=== PATIENT | female | born 1990 | race Caucasian/White ===

== ENCOUNTER 2020-03-06 16:03 | Emergency (ER) | payer OTHER, SELFPAY ==
[2020-03-06 16:42] VITALS: BP 130/73; PULSE 83; RESP 18; TEMP 36.8; O2SAT 100; BMI 31.6
--- NOTE | 2020-03-06 16:57 | HMH.EDUTC ---
[facility] [place] Disposition Clinical Impression: Encounter for laboratory testing for COVID-19 virus Disposition: Home, Self-Care Condition on Discharge: Good Instructions: Preventing the Spread of Coronavirus Discharge Instructions Additional Instructions: Call back later this evening around 8pm to see if your test results are back and the result Self quarantine while awaiting your result Return if needed straight to ER if any life threatening symptoms Referrals: Cinthya Cali PA [Primary Care Provider] - As needed Time of Disposition: 17:00 Medical Decision Making - Bbo Inquiry Pt receiving controlled substance: No Obb was queried for this patient: No Vital Signs: 03/06/20 16:42 Temperature 98.3 F Temperature Source Oral Pulse Rate [Right Brachial] 83 Respiratory Rate 18 Blood Pressure [Right Arm] 130/73 Blood Pressure Mean [Right Arm] 92 Blood Pressure Source [Right Arm] Automatic Cuff Blood Pressure Position [Right Arm] Sitting 02 Sat by Pulse Oximetry 100 Oxygen Delivery Method Room Air Orders (Tests/Meds): ORDERS Category Date Time Status Covid-19 Nasal PCR ([facility]) Routine Lab 03/06/20 16:[address] [facility] [place] HPI - General Stated complaint: COVID Testing Time Seen by Provider: 03/06/20 16:57 Mode of Arrival: Ambulatory Source of Information: Patient Limitations: No Limitations Description of Symptoms (Recalled from Triage Doc. by RN): PATIENT REQUESTING COVID TEST. 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 I have reviewed the patient's past medical history: Yes - Social History Alcohol Intake: never Occupational Status: other ROS Obtained: Yes All systems reviewed & no additional complaints, Yes Systems reviewed as appropriate & no additional complaints - Constitutional Constitutional: Reports system reviewed and no additional complaints, except as docu, Denies body ache, Denies chills, Denies fever(s), Denies headache(s) - ENT Ears, Nose, Mouth, and Throat: Reports system reviewed and no additional complaints, except as docu, Denies nasal congestion, Denies nasal discharge, Denies sinus pain, Denies sinus pressure, Denies sore throat - Cardiovascular Cardiovascular: Reports system reviewed and no additional complaints, except as docu - Respiratory Respiratory: No chest congestion, No cough, No dyspnea - Gastrointestinal Gastrointestingal: Reports: system reviewed and no additional complaints, except as docu. Denies: diarrhea, nausea, vomiting Physical Exam - General General appearance: alert, in no apparent distress - ENT ENT exam: Present: normal exam, normal oropharynx, mucous membranes moist, TM's normal bilaterally, normal external ear exam - Respiratory Respiratory exam: Present: normal lung sounds bilaterally. Absent: respiratory distress - Cardiovascular Cardiovascular exam: Present: regular rate, normal rhythm. Absent: JVD - Abdominal Exam Abdominal exam: Present: soft, normal bowel sounds.
[2020-03-06 17:17] VITALS: BP 130/73; PULSE 83; RESP 18; TEMP 36.8; O2SAT 100
== END 2020-03-06 17:24 | disposition home or self-care (01) ==
PROVIDERS: Emergency Provider Nurse Practitioner; PCP Physician Assistant
DX: Z20.828 Contact with and (suspected) exposure to other viral communicable diseases (principal)
CPT/HCPCS: 99201; U0003

== ENCOUNTER 2020-03-17 13:46 | Emergency (ER) | payer OTHER, SELFPAY ==
[2020-03-17 13:53] VITALS: BP 123/73; PULSE 80; RESP 18; TEMP 36.7; O2SAT 100; BMI 31.6
--- NOTE | 2020-03-17 14:15 | HMH.EDUTC ---
[facility] [place] Disposition Clinical Impression: Exposure to COVID-19 virus Disposition: Home, Self-Care Condition on Discharge: Good Instructions: Preventing the Spread of Coronavirus Discharge Instructions Additional Instructions: Drink plenty of fluids. Take tylenol or ibuprofen for pain or fever. Follow up with your regular doctor. GO TO THE ER FOR ANY WORSENING SYMPTOMS FOLLOW THE DIRECTIONS ON THE COVID-19 HAND OUT THAT WE GAVE YOU REGARDING SELF-ISOLATION UNTIL YOU KNOW YOUR COVID-19 RESULTS Referrals: PCP,No [Non-Staff] - Time of Disposition: 14:21 Medical Decision Making - Medical Records Medical records reviewed: No: I reviewed the patient's medical records. - Bob Inquiry Pt receiving controlled substance: No Vital Signs: 03/17/20 13:53 03/17/20 14:26 Temperature 98.1 F 98.1 F Temperature Source Oral Oral Pulse Rate 80 Pulse Rate [Radial] 80 Respiratory Rate 18 18 Blood Pressure 123/73 Blood Pressure [Right Arm] 123/73 Blood Pressure Mean [Right Arm] 89 Blood Pressure Source Automatic Cuff Blood Pressure Source [Right Arm] Automatic Cuff Blood Pressure Position Sitting Blood Pressure Position [Right Arm] Sitting 02 Sat by Pulse Oximetry 100 Oxygen Delivery Method Room Air Room Air [facility] [place] HPI - General Stated complaint: Covid test Time Seen by Provider: 03/17/20 14:15 Mode of Arrival: Ambulatory Source of Information: Patient Limitations: No Limitations Description of Symptoms (Recalled from Triage Doc. 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 She states that 3 days ago she worked and then she was notified that one of the children in her class had covid. - Related Data Allergies Allergy/AdvReac Type Severity Reaction Status Date / Time No Known Allergies Allergy Verified 03/06/20 16:45 - Worker's Comp Is this a Worker's Comp case?: No [facility] History - Hepatitis A Screen Drug use history?: No High risk sexual behaviors?: No History of sexually transmitted infection?: No Currently employed?: No Childcare worker?: No Do you have indoor plumbing?: Yes Do you have electricity?: Yes Attestation statement:: This patient has been screened for Hepatitis A risk factors. I have reviewed the patient's past medical history: Yes - Social History Alcohol Intake: never Occupational Status: employed Housing: house ROS Obtained: Yes All systems reviewed & no additional complaints - Constitutional Constitutional: Denies chills, Denies fever(s) - ENT Ears, Nose, Mouth, and Throat: Reports as per HPI - Cardiovascular Cardiovascular: Denies chest pain - Respiratory Respiratory: No chest congestion, Yes cough Physical Exam - General General appearance: alert, in no apparent distress - Head Head exam: atraumatic, normocephalic, normal inspection - Eye Eye exam: Present: normal appearance, PERRL, EOMI - ENT ENT exam: Present: normal exam, normal oropharynx, mucous membranes moist, TM's normal bilaterally, normal external ear exam - Neck Neck exam: Present: normal inspection, full ROM, trachea midline. Absent: meningismus, lymphadenopathy - Chest Chest inspection: Present: normal inspection, symmetric chest wall rise. Absent: tenderness - Respiratory Respiratory exam: Present: normal lung sounds bilaterally. Absent: respiratory distress - Cardiovascular Cardiovascular exam: Present: regular rate, normal rhythm. Absent: JVD - Abdominal Exam Abdominal exam: Present: soft, normal bowel sounds. Absent: distention, tenderness, guarding - Extremities Exam Extremities exam: Present: normal inspection, full ROM, normal capillary refill. Absent: calf tendernes
[2020-03-17 14:26] VITALS: BP 123/73; PULSE 80; RESP 18; TEMP 36.7; O2SAT 100
== END 2020-03-17 14:28 | disposition home or self-care (01) ==
PROVIDERS: Emergency Provider Nurse Practitioner Family; PCP Physician Assistant
DX: Z20.828 Contact with and (suspected) exposure to other viral communicable diseases (principal)
CPT/HCPCS: 99201; U0003

== ENCOUNTER 2020-04-27 18:28 | Emergency (ER) | payer OTHER, SELFPAY ==
[2020-04-27 18:59] VITALS: BP 139/79; PULSE 93; RESP 18; TEMP 36.8; O2SAT 98; BMI 32.4
--- NOTE | 2020-04-27 19:02 | HMH.EDUTC ---
[facility] [place] Disposition Clinical Impression: Encounter for laboratory testing for COVID-19 virus Disposition: Home, Self-Care Condition on Discharge: Good Instructions: Allergic Rhinitis, DI for Allergic Rhinitis, Preventing the Spread of Coronavirus Discharge Instructions Additional Instructions: *Monitor Temp, Over the counter Motrin or Tylenol as directed/as needed Tylenol every 4 hours and Motrin every 6 hours (as long as your family doctor has told you that you can take it) for fever or pain. and straight to ER if unable to lower temp less than 101.0 after medication given *Warm salt water gargles may help to soothe the throat *Throat Lozenges *Warm fluids like tea with honey may help to soothe the throat *Sleep elevated *Humidifier/Vaporizer *Flonase 2 sprays in each nostril daily but be aware that it may take 2-3 days before you notice improvement Your throat swab was sent for culture. Those results are typically sent to your primary care. Be sure to follow up in 2-3 days with your family doctor/primary care physician if no improvement so they can review those result and treat if necessary. If you don?t have a primary care doctor, I recommend you get one but in the mean time, you will have to return to a walk in clinic Follow up IMMEDIATELY for new or worsening symptoms or no Noticeable improvement over the next 48-72 hours. 911 for difficulty breathing or swallowing You was tested for today for COVID19 your test result should be back in the next 24-48 hours, you may call to the [facility] later today or tomorrow to see if your test results are back and the result [phone] [facility] hours are 9am-9pm You was given a handout with instructions for Self Quarantine and Self isolation for while you wait on test results and what to do if they are positive If you are positive the Health Dept will be contacting you also Prescriptions: Benzonatate [Tessalon Perle 100mg Cap*] 100 mg PO TID PRN #15 cap PRN Reason: Cough Transmission Status: Pending to [facility] Referrals: Cinthya Cali PA [Primary Care Provider] - As needed Forms: Work/School Release Time of Disposition: 19:21 Medical Decision Making - Bob Inquiry Pt receiving controlled substance: No Bob was queried for this patient: No Vital Signs: 04/27/20 18:59 Temperature 98.2 F Temperature Source Oral Pulse Rate [Radial] 93 H Respiratory Rate 18 Blood Pressure [Right Arm] 139/79 Blood Pressure Mean [Right Arm] 99 Blood Pressure Source [Right Arm] Automatic Cuff Blood Pressure Position [Right Arm] Sitting 02 Sat by Pulse Oximetry 98 Oxygen Delivery Method Room Air - Lab Data Lab results reviewed: Yes: I reviewed the patient's lab results. Orders (Tests/Meds): ORDERS Category Date Time Status Covid-19 Nasal PCR ([facility]) Routine Lab 04/27/20 18:40 Received [facility] [place] HPI - General Stated complaint: wants covid test Time Seen by Provider: 04/27/20 19:02 Mode of Arrival: Ambulatory Source of Information: Patient Limitations: No Limitations Description of Symptoms (Recalled from Triage Doc. 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
[2020-04-27 19:44] VITALS: BP 139/79; PULSE 93; RESP 18; TEMP 36.8; O2SAT 98
[2020-04-27 20:18] LABS: UTC Strep Screen (Rapid) Negative (Negative)
--- NOTE | 2020-04-28 04:42 | PC.NURSE ---
Positive COVID results reported.
== END 2020-04-27 19:44 | disposition home or self-care (01) ==
PROVIDERS: Emergency Provider Nurse Practitioner; PCP Physician Assistant
DX: U07.1 COVID-19 (principal)
CPT/HCPCS: 87880; 99202; U0003

== ENCOUNTER 2020-09-17 10:55 | Emergency (ER) | payer OTHER, SELFPAY ==
[2020-09-17 10:55] VITALS: BP 132/93; PULSE 90; RESP 16; TEMP 36.7; O2SAT 99; BMI 32.4
--- NOTE | 2020-09-17 11:40 | XR_ITS ---
PROCEDURE: XR CHEST 2V CLINICAL HISTORY: congestion Asthma, smoker COMPARISON: No exams were available for comparison FINDINGS: The cardiomediastinal silhouette and pulmonary vascularity are within normal limits. The lungs are clear without infiltrates, suspicious nodules, or pleural effusions. No acute bony abnormalities. IMPRESSION: No acute findings. Dictated by: Troy Ríos MD 09/17/2020 12:04 Troy Ríos MD in OV 09/17/2020 12:04
--- NOTE | 2020-09-17 12:07 | HMH.EDUTC ---
[facility] [place] [facility] [place] Clinical Impression: Asthma exacerbation Qualifiers: Asthma severity: unspecified severity Asthma persistence: unspecified Qualified Code(s): J45.901 - Unspecified asthma with (acute) exacerbation Disposition: Home, Self-Care Condition on Discharge: Good Instructions: DI for Asthma -- Adult Additional Instructions: Drink plenty of fluids. Take tylenol or ibuprofen for pain or fever. Take the medications as directed. Follow up with your regular doctor. GO TO THE ER FOR ANY WORSENING SYMPTOMS Don't start the oral steroids until tomorrow, since you had the shot here today. Prescriptions: diphenhydrAMINE HCL [Diphenhydramine HCl] 25 mg PO Q6HP PRN #30 cap PRN Reason: Itching Transmission Status: Received by [email or web address] Amoxicillin/Potassium Clav [Augmentin 875-125 Tablet] 1 tab PO Q12H 10 Days #20 tab Transmission Status: Received by [email or web address] methylPREDNISolone [Medrol] 4 mg PO DIRECTED 6 Days #21 tab.ds.pk Transmission Status: Received by [email or web address] Benzonatate [Tessalon Perle 100mg Cap] 100 mg PO TIDP PRN #30 cap PRN Reason: Cough Transmission Status: Received by [email or web address] Referrals: Cinthya Cali PA [Primary Care Provider] - Forms: Work/School Release Time of Disposition: 12:50 Medical Decision Making - Medical Records Medical records reviewed: No: I reviewed the patient's medical records. - Bob Inquiry Pt receiving controlled substance: No Vital Signs: 09/17/20 10:55 09/17/20 13:27 Temperature 98.1 F 98.9 F Temperature Source Oral Oral Pulse Rate 75 Pulse Rate [Right] 90 Respiratory Rate 16 16 Blood Pressure 136/61 Blood Pressure [Right Arm] 132/93 H Blood Pressure Mean [Right Arm] 106 02 Sat by Pulse Oximetry 99 Oxygen Delivery Method Room Air Orders (Tests/Meds): ED MEDICATIONS Discontinued Medications Generic Name Dose Route Start Last Admin Trade Name Freq PRN Reason Stop Dose Admin Ceftriaxone Sodium 1 gm 09/17/20 12:05 09/17/20 12:20 Ceftriaxone 1gm Vial IM 09/17/20 12:06 1 gm ONCE ONE Administration Protocol Lidocaine HCl 0 ml 09/17/20 12:05 09/17/20 12:22 Lidocaine 1% 5ml Pf Vial IM 09/17/20 12:06 5 ml ONCE ONE Administration Methylprednisolone Sodium Succinate 125 mg 09/17/20 12:05 09/17/20 12:23 Methylprednisolone Sod Succ 125mg Vial IM 09/17/20 12:06 125 mg ONCE ONE Administration [facility] [place]PI - General Stated complaint: Cough,SOB Time Seen by Provider: 09/17/20 10:55 Mode of Arrival: Ambulatory Limitations: No Limitations Description of Symptoms (Recalled from Triage Doc. by RN): pt c/o head, chest congestion, cough that started a few day ago. pt states thinks it sinus HEENT Symptoms (Recalled from RN notes): Yes Resp Symptoms (Recalled from RN notes): Yes Skin Symptoms (Recalled from RN notes): No MS Symptoms (Recalled from RN notes): No Functional Status (Recalled from RN notes): wnl - History of Present Illness Provider Complaint: she states that for the past 2 days she has had a cough and chest congestion. She has a history of asthma. She has been having to use her rescue inhaler (albuterol) more than normal. She denies any chest pain and fever. She does have a history of getting pneumonia easily. - Related Data Previous Rx's Medication Instructions Recorded Benzonatate [Tessalon Perle 100mg 100 mg PO TID PRN #15 cap 04/27/20 Cap*] Amoxicillin/Potassium Clav 1 tab PO Q12H 10 Days #20 tab 09/17/20 [Augmentin 875-125 Tablet] Benzonatate [Tessalon Perle 100mg 100 mg PO TIDP PRN #30 cap 09/17/20 Cap] diphenhydrAMINE HCL 25 mg PO Q6HP PRN #30 cap 09/17/20 [Diphenhydramine HCl] methylPREDNISolone [Medrol] 4 mg PO DIRECTED 6 Days #21 09/17/20 tab.ds.pk Allergies Allergy/AdvReac Type Severity Reaction Status Date / Time ceftriaxone Allergy Verified 09/17/20 15:27 - Worker's Comp Is this a Worker
[2020-09-17 13:27] VITALS: BP 136/61; PULSE 75; RESP 16; TEMP 37.2; O2SAT 99
== END 2020-09-17 13:28 | disposition home or self-care (01) ==
PROVIDERS: Emergency Provider Nurse Practitioner Family; PCP Physician Assistant
DX: J45.901 Unspecified asthma with (acute) exacerbation (principal); F17.210 Nicotine dependence, cigarettes, uncomplicated
CPT/HCPCS: 71046; 96372; 99202; G0463

== ENCOUNTER 2024-03-30 16:05 | Emergency (ER) | payer OTHER, SELFPAY ==
[2024-03-30 16:15] VITALS: BP 132/84; PULSE 92; RESP 20; TEMP 36.7; O2SAT 98; BMI 31.6
--- NOTE | 2024-03-30 16:27 | ED_ITS ---
Discharge Plan Disposition Patient Disposition: Home, Self-Care Condition: Good Prescriptions Prescriptions: New nitrofurantoin monohyd/m-cryst 100 mg capsule 100 mg PO BID 5 Days Qty: 10 0RF Rx Instructions: must administer with a meal/food No Action clonazepam 0.5 mg tablet 0.5 mg PO BID Patient Comments: TAKE ONE TABLET BY MOUTH TWICE DAILY omeprazole 40 mg capsule,delayed release(DR/EC) 40 mg PO DAILY montelukast 10 mg tablet 10 mg PO DAILY sertraline 50 mg tablet 50 mg PO DAILY Referrals Follow up/Referrals: Cinthya Cali PA [Primary Care Provider] - See instructions Activity Restrictions/Add. Instructions Additional Instructions/Restrictions: I recommend following up with your PCP for further evaluation of your gallbladder including formal gallbladder ultrasound with possible HIDA scan, recheck with your PCP because of the findings on the CAT scan of possibly dilated ureter but no kidney stone was seen. I have sent a prescription to your pharmacy please take till gone unless you have problems taking it. Return to the ER for any worsening signs or symptoms as needed Clinical Impressions Clinical Impression: Right upper quadrant abdominal pain Instructions Patient Instructions: DI for Acute Abdominal Pain Print Language Print Language: Mongolian Discharge ED Provider: Carlin Cifuentes [facility] [place] <Peri Rush APRN - Last Filed: 03/30/24 20:40> General Chief complaint: Abdominal Pain Stated complaint: Pain right side,nausea,pain in right shoulder Mode of Arrival: Ambulatory Source of Information: Patient Limitations: No Limitations Time Seen by Provider: 03/30/24 16:32 Description of Symptoms (Recalled from Triage Doc. by RN): PATIENT C/O RIGHT UPPER QUADRANT PAIN, PAIN BETWEEN HER SHOULDER BLADES, BLOATING, CONSTIPATION, DIARRHEA, AND NAUSEA THAT STARTED 2 DAYS AGO HEENT Symptoms (Recalled from RN notes): No Resp Symptoms (Recalled from RN notes): No Skin Symptoms (Recalled from RN notes): No MS Symptoms (Recalled from RN notes): No Functional Status (Recalled from RN notes): WNL History of Present Illness Provider Complaint: Patient states that she started a couple days ago with pain in her right upper quad that goes into her back between her shoulder blade area that has continued to feel worse States that she has been feeling bloated and normally she has constipation but she has had some diarrhea and nausea. States today she was still hurting and feeling uncomfortable so she came in Related Data Home Medications ?Medication ?Instructions ?Recorded ?Confirmed clonazepam 0.5 mg tablet 0.5 mg PO BID 03/30/24 03/30/24 montelukast 10 mg tablet 10 mg PO DAILY 03/30/24 03/30/24 omeprazole 40 mg capsule,delayed 40 mg PO DAILY 03/30/24 03/30/24 release sertraline 50 mg tablet 50 mg PO DAILY 03/30/24 03/30/24 Previous Rx's ?Medication ?Instructions ?Recorded nitrofurantoin 100 mg PO BID 5 days #10 caps 03/30/24 monohydrate/macrocrystals 100 mg capsule Allergies Allergy/AdvReac Type Severity Reaction Status Date / Time ceftriaxone Allergy Verified 09/17/20 15:27 Worker's Comp Is this a Worker's Comp case?: No PFSH <Peri Rush APRN - Last Filed: 03/30/24 20:40> [facility] Disclaimer: The information contained in this section may have been updated after the patient was seen, as this information can be updated by other users. Medical History (Updated 03/30/24 @ 18:52 by JUANCHO Sanford) Migraine Asthma Depression Anxiety Kidney stone Urinary tract infection History of gastroesophageal reflux (GERD) Social History Smoking Status: Never smoker alcohol intake: never current occupational status: employed Travel in the last 8 weeks: None housing: house <Peri Rush APRN - Last Filed: 03/30/24 20:40> ROS Obtained: Yes All systems reviewed & no additional complaints except as documented and Yes Systems reviewed as appropriate & no additional complaints except as documented Constitutional Constitutional: Reports system reviewed and no additional complaints, except as documented, Reports as per HPI and Denies fever(s) ENT Ears, Nose, Mouth, and Throat: Reports system reviewed and no additional complaints, except as documented and Reports as per HPI Cardiovascular Cardiovascular: Reports system reviewed and no additional complaints, except as documented and Reports as per HPI Respiratory Respiratory: Reports system reviewed and no additional complaints, except as documented and Reports as per HPI Gastrointestinal Gastrointestingal: Reports system reviewed and no additional complaints, except as documented, as per HPI, abdominal pain (pain in right upper quad going into shoulder blade area), bloating, constipation (at times), diarrhea and nausea Physical Exam <Peri Rush APRN - Last Filed: 03/30/24 20:40> General General appearance: alert and in no apparent distress Respiratory Respiratory exam: Present normal lung sounds bilaterally; Absent respiratory distress or wheezes Cardiovascular Cardiovascular exam: Present regular rate, normal rhythm and normal heart sounds Abdominal Exam Abdominal exam: Present soft and tenderness (reports tenderness with palpation in right upper quad) Neurological Exam Neurological exam: Present alert, oriented X3 and normal gait Medical Decision Making <Peri Rush APRN - Last Filed: 03/30/24 20:40> Medical Records Screening: Per USPSTF and CDC recommendations, given the prevalence of disease in our region, it is our hospital?s policy to screen for HIV and viral Hepatitis for all patients aged 18 and over and those with ongoing risk factors. Bob Inquiry Pt receiving controlled substance: No Bob was queried for this patient: No Vital Signs: 03/30/24 16:15 Temperature 98.1 F Temperature Source Oral Pulse Rate [Left Brachial] 92 H Respiratory Rate 20 Blood Pressure [Left Arm] 132/84 Blood Pressure Mean [Left Arm] 100 Blood Pressure Source [Left Arm] Automatic Cuff Blood Pressure Position [Left Arm] Sitting 02 Sat by Pulse Oximetry 98 Oxygen Delivery Method Room Air Lab Data 03/30/24 17:05 03/30/24 17:05 Medical Decision Narrative: Patient states that around 2 days ago she started with pain in her right upper quad or her abdomen that feels like it goes into her back between her shoulder blade area, state that she has been feeling bloated and having nausea States that she typically has constipation but instead she has been having diarrhea and more uncomfortable after eating States today it was bothering her and she went to the clinic at school and they recommended she come in and get checked discussed with patient and due to complaint of abdominal pain recommended transfer to the ED for further work up and evaluation and she agreed Called ED and patient was moved to the ED <JUANCHO Sanford - Last Filed: 03/30/24 20:14> Medical Records Medical records reviewed: Yes I reviewed the patient's medical records. Vital Signs: 03/30/24 16:15 Temperature 98.1 F Temperature Source Oral Pulse Rate [Left Brachial] 92 H Respiratory Rate 20 Blood Pressure [Left Arm] 132/84 Blood Pressure Mean [Left Arm] 100 Blood Pressure Source [Left Arm] Automatic Cuff Blood Pressure Position [Left Arm] Sitting 02 Sat by Pulse Oximetry 98 Oxygen Delivery Method Room Air Lab Data Lab results reviewed: Yes I reviewed the patient's lab results.
--- NOTE | 2024-03-30 16:37 | HMH.EDGENADL ---
Discharge Plan Disposition Patient Disposition: Home, Self-Care Condition: Good Prescriptions Prescriptions: New nitrofurantoin monohyd/m-cryst 100 mg capsule 100 mg PO BID 5 Days Qty: 10 0RF Rx Instructions: must administer with a meal/food No Action clonazepam 0.5 mg tablet 0.5 mg PO BID Patient Comments: TAKE ONE TABLET BY MOUTH TWICE DAILY omeprazole 40 mg capsule,delayed release(DR/EC) 40 mg PO DAILY montelukast 10 mg tablet 10 mg PO DAILY sertraline 50 mg tablet 50 mg PO DAILY Referrals Follow up/Referrals: Cinthya Cali PA [Primary Care Provider] - See instructions Activity Restrictions/Add. Instructions Additional Instructions/Restrictions: I recommend following up with your PCP for further evaluation of your gallbladder including formal gallbladder ultrasound with possible HIDA scan, recheck with your PCP because of the findings on the CAT scan of possibly dilated ureter but no kidney stone was seen. I have sent a prescription to your pharmacy please take till gone unless you have problems taking it. Return to the ER for any worsening signs or symptoms as needed Clinical Impressions Clinical Impression: Right upper quadrant abdominal pain Instructions Patient Instructions: DI for Acute Abdominal Pain Print Language Print Language: Hungarian Discharge ED Provider: Carlin Cifuentes General Adult HPI <JUANCHO Sanford - Last Filed: 03/30/24 20:14> General Chief complaint: Abdominal Pain Stated complaint: Pain right side,nausea,pain in right shoulder Time Seen by Provider: 03/30/24 16:32 Mode of Arrival: Ambulatory Source of Information: Patient Limitations: No Limitations Description of Symptoms (Recalled from ER Triage Doc. by RN): PATIENT C/O RIGHT UPPER QUADRANT PAIN, PAIN BETWEEN HER SHOULDER BLADES, BLOATING, CONSTIPATION, DIARRHEA, AND NAUSEA THAT STARTED 2 DAYS AGO History of Present Illness HPI narrative: Patient presents for evaluation of right upper quadrant abdominal pain. Patient gives 3-day history of intermittent waxing and waning right upper quadrant abdominal pain. She states that fatty food makes it worse and she gets nauseated. She states that she feels it between her shoulder blades but denies chest pain shortness of breath fever chills hemoptysis hematochezia melena vomiting diarrhea. Patient has had a bowel movement and flatus today. She reports that she has also had intermittent constipation and feeling of bloating in her abdomen but no dysuria. Related Data Home Medications ?Medication ?Instructions ?Recorded ?Confirmed clonazepam 0.5 mg tablet 0.5 mg PO BID 03/30/24 03/30/24 montelukast 10 mg tablet 10 mg PO DAILY 03/30/24 03/30/24 omeprazole 40 mg capsule,delayed 40 mg PO DAILY 03/30/24 03/30/24 release sertraline 50 mg tablet 50 mg PO DAILY 03/30/24 03/30/24 Previous Rx's ?Medication ?Instructions ?Recorded nitrofurantoin 100 mg PO BID 5 days #10 caps 03/30/24 monohydrate/macrocrystals 100 mg capsule Allergies Allergy/AdvReac Type Severity Reaction Status Date / Time ceftriaxone Allergy Verified 09/17/20 15:27 ON LICENSE OF [facility] <JUANCHO Sanford - Last Filed: 03/30/24 20:14> ON LICENSE OF [facility] Disclaimer: The information contained in this section may have been updated after the patient was seen, as this information can be updated by other users. Medical History (Updated 03/30/24 @ 18:52 by JUANCHO Sanford) Migraine Asthma Depression Anxiety Kidney stone Urinary tract infection History of gastroesophageal reflux (GERD) Social History Smoking Status: Never smoker alcohol intake: never current occupational status: employed Travel in the last 8 weeks: None housing: house <JUANCHO Sanford - Last Filed: 03/30/24 20:14> ROS Obtained: Yes Systems reviewed as appropriate & no additional complaints except as documented Physical Exam <JUANCHO Sanford - Last Filed: 03/30/24 20:14> General General appearance: alert and in no apparent distress Respiratory Respiratory exam: Present normal lung sounds bilaterally Cardiovascular Cardiovascular exam: Present regular rate Neurological Exam Neurological exam: Present alert and oriented X3 Medical Decision Making <JUANCHO Sanford - Last Filed: 03/30/24 20:14> Medical Records Medical records reviewed: Yes I reviewed the patient's medical records. Screening: Per USPSTF and CDC recommendations, given the prevalence of disease in our region, it is our hospital?s policy to screen for HIV and viral Hepatitis for all patients aged 18 and over and those with ongoing risk factors. Bob Inquiry Pt receiving controlled substance: No Vital Signs: 03/30/24 16:15 03/30/24 16:48 03/30/24 18:30 Temperature 98.1 F 98.0 F Temperature Source Oral Oral Pulse Rate 65 Pulse Rate [Left Brachial] 92 H 77 Respiratory Rate 20 20 Blood Pressure 135/85 Blood Pressure [Left Arm] 132/84 121/82 Blood Pressure Mean [Left Arm] 100 95 Blood Pressure Source [Left Arm] Automatic Cuff Blood Pressure Position [Left Arm] Sitting 02 Sat by Pulse Oximetry 98 100 100 Oxygen Delivery Method Room Air Room Air 03/30/24 19:12 Temperature 98.2 F Temperature Source Oral Pulse Rate 67 Pulse Rate [Left Brachial] Respiratory Rate 18 Blood Pressure 146/106 H Blood Pressure [Left Arm] Blood Pressure Mean [Left Arm] Blood Pressure Source [Left Arm] Blood Pressure Position [Left Arm] 02 Sat by Pulse Oximetry Oxygen Delivery Method Room Air Lab Data Lab results reviewed: Yes I reviewed the patient's lab results. Lab Results 03/30/24 16:40: Urine Color Yellow, Urine Appearance Clear, Urine pH 6.0, Ur Specific Vancleve 1.025, Urine Protein Negative, Urine Glucose (UA) Negative, Urine Ketones Negative, Urine Blood Trace-i, Urine Nitrate Negative, Urine Bilirubin Negative, Urine Urobilinogen 0.2, Ur Leukocyte Esterase Negative, Urine RBC 3-5, Urine WBC 5-10, Ur Squamous Epith Cells 10-20, Urine Bacteria 3+, Urine HCG, Qual Negative 03/30/24 17:05: WBC 7.2, RBC 5.02, Hgb 13.3, Hct 41.9, MCV 83.4, MCH 26.4 L, MCHC 31.7 L, RDW 14.3, Plt Count 374, MPV 7.4, Neut % (Auto) 56.2, Lymph % (Auto) 36.3, Brule % (Auto) 3.9, Eos % (Auto) 2.0, Baso % (Auto) 1.7, Neut # (Auto) 4.0, Lymph # (Auto) 2.6, Brule # (Auto) 0.3, Eos # (Auto) 0.1, Baso # (Auto) 0.1, PT 10.0 L, INR 0.88 L, Sodium 137, Potassium 3.4 L, Chloride 102, Carbon Dioxide 25, Anion Gap 13.4, BUN 10, Creatinine 0.80, Estimated Creat Clear 138, Estimated GFR 82, Est GFR ( Amer) 99, Glucose 97, Calcium 10.0, Total Bilirubin 0.6, AST 26, ALT 23, Alkaline Phosphatase 65, Total Protein 7.9, Albumin 4.5, Globulin 3.4 H, Albumin/Globulin Ratio 1.3, Lipase 71 03/30/24 17:05 03/30/24 17:05 Orders (Tests/Meds): ED MEDICATIONS Discontinued Medications Generic Name Dose Route Start Last Admin Trade Name Freq PRN Reason Stop Dose Admin Acetaminophen 1,000 mg 03/30/24 16:53 03/30/24 17:04 Acetaminophen 500mg Tab PO 03/30/24 16:54 1,000 mg ONCE ONE Administration Iopamidol 75 ml 03/30/24 17:45 03/30/24 17:46 Iopamidol-370 (76%);100ml Bottle IV 03/30/24 17:46 75 ml ONCE ONE Administration Ketorolac Tromethamine 15 mg 03/30/24 16:53 03/30/24 17:04 Ketorolac 30mg/Ml Vial IV 03/30/24 16:54 15 mg ONCE ONE Administration Ondansetron HCl 4 mg 03/30/24 16:53 03/30/24 17:05 Ondansetron 4mg/2ml Vial IV 03/30/24 16:54 4 mg ONCE ONE Administration Sodium Chloride 10 ml 03/30/24 17:45 03/30/24 17:46 Sodium Chloride 0.9% 10ml Syr (Rad Only) IV 03/30/24 17:46 10 ml ONCE ONE Administration ORDERS Category Date Time Status CT abdomen pelvis w con Stat Cat Scan 03/30/24 16:53 Completed POCUS Point of Care (ER Only) Stat Exams 03/30/24 16:53 Completed CBC w/Auto Diff [Complete Blood Count Auto Diff] Stat Lab 03/30/24 17:05 Completed CMP [Comprehensive Metabolic Panel] Stat Lab 03/30/24 17:05 Completed INR [Prothrombin Time INR] Stat Lab 03/30/24 17:05 Completed Lipase Stat Lab 03/30/24 17:05 Completed UA [Urinalysis and Microscopic] Stat Lab 03/30/24 16:40 Completed Urine , HCG Qual. Stat Lab 03/30/24 16:40 Completed Urine Culture Stat Micro 03/30/24 16:40 Received Medical Decision Narrative: In summary patient is a 3-year-old female who presents to the emergency department for evaluation of right upper quadrant abdominal pain. Patient is hemodynamically stable upon arrival, afebrile. Physical exam is remarkable for a soft abdomen with mild right upper quadrant tenderness on palpation but negative Langley sign currently with no rebound or guarding or rigidity. Bowel sounds normal active. No epigastric tenderness. Breath sounds are clear and equal bilaterally to the bases.. Differential diagnosis includes constipation gastritis gastroenteritis pancreatitis etc. Initial workup will be conducted with hematologic labs urinalysis CT scan abdomen pelvis. Initial interventions include Tylenol Toradol. Initial workup reviewed by me was that her hematologic labs are nonactionable however I do see an increased stool burden in the right hemicolon but no colonic wall thickening or concerning signs of obstruction, she also might have right hydroureter but no stone is seen no stranding and no other acute abdominal process noted and her urinalysis shows trace blood but nitrite and leukocyte esterase negative on the dipstick and the microscopic exam shows 3-5 red blood cells 5-10 whites 10-20 epithelial cells and 3+ bacteria in her POCUS right upper quadrant ultrasound is normal. Upon repeat evaluation treatment and her symptoms. Given this patient is appropriate for discharge with a prescription for Macrobid and follow-up with her PCP for no improvement or worsening symptoms or return to ER as needed. <Carlin Cifuentes MD - Last Filed: 03/30/24 20:48> Vital Signs: 03/30/24 16:15 03/30/24 16:48 03/30/24 18:30 Temperature 98.1 F 98.0 F Temperature Source Oral Oral Pulse Rate 65 Pulse Rate [Left Brachial] 92 H 77 Respiratory Rate 20 20 Blood Pressure 135/85 Blood Pressure [Left Arm] 132/84 121/82 Blood Pressure Mean [Left Arm] 100 95 Blood Pressure Source [Left Arm] Automatic Cuff Blood Pressure Position [Left Arm] Sitting 02 Sat by Pulse Oximetry 98 100 100 Oxygen Delivery Method Room Air Room Air 03/30/24 19:12 Temperature 98.2 F Temperature Source Oral Pulse Rate 67 Pulse Rate [Left Brachial] Respiratory Rate 18 Blood Pressure 146/106 H Blood Pressure [Left Arm] Blood Pressure Mean [Left Arm] Blood Pressure Source [Left Arm] Blood Pressure Position [Left Arm] 02 Sat by Pulse Oximetry Oxygen Delivery Method Room Air Lab Data Lab Results 03/30/24 16:40: Urine Color Yellow, Urine Appearance Clear, Urine pH 6.0, Ur Specific Vancleve 1.025, Urine Protein Negative, Urine Glucose (UA) Negative, Urine Ketones Negative, Urine Blood Trace-i, Urine Nitrate Negative, Urine Bilirubin Negative, Urine Urobilinogen 0.2, Ur Leukocyte Esterase Negative, Urine RBC 3-5, Urine WBC 5-10, Ur Squamous Epith Cells 10-20, Urine Bacteria 3+, Urine HCG, Qual Negative 03/30/24 17:05: WBC 7.2, RBC 5.02, Hgb 13.3, Hct 41.9, MCV 83.4, MCH 26.4 L, MCHC 31.7 L, RDW 14.3, Plt Count 374, MPV 7.4, Neut % (Auto) 56.2, Lymph % (Auto) 36.3, Brule % (Auto) 3.9, Eos % (Auto) 2.0, Baso % (Auto) 1.7, Neut # (Auto) 4.0, Lymph # (Auto) 2.6, Brule # (Auto) 0.3, Eos # (Auto) 0.1, Baso # (Auto) 0.1, PT 10.0 L, INR 0.88 L, Sodium 137, Potassium 3.4 L, Chloride 102, Carbon Dioxide 25, Anion Gap 13.4, BUN 10, Creatinine 0.80, Estimated Creat Clear 138, Estimated GFR 82, Est GFR ( Amer) 99, Glucose 97, Calcium 10.0, Total Bilirubin 0.6, AST 26, ALT 23, Alkaline Phosphatase 65, Total Protein 7.9, Albumin 4.5, Globulin 3.4 H, Albumin/Globulin Ratio 1.3, Lipase 71 Orders (Tests/Meds): ED MEDICATIONS Discontinued Medications Generic Name Dose Route Start Last Admin Trade Name Yazanq PRN Reason Stop Dose Admin Acetaminophen 1,000 mg 03/30/24 16:53 03/30/24 17:04 Acetaminophen 500mg Tab PO 03/30/24 16:54 1,000 mg ONCE ONE Administration Iopamidol 75 ml 03/30/24 17:45 03/30/24 17:46 Iopamidol-370 (76%);100ml Bottle IV 03/30/24 17:46 75 ml ONCE ONE Administration Ketorolac Tromethamine 15 mg 03/30/24 16:53 03/30/24 17:04 Ketorolac 30mg/Ml Vial IV 03/30/24 16:54 15 mg ONCE ONE Administration Ondansetron HCl 4 mg 03/30/24 16:53 03/30/24 17:05 Ondansetron 4mg/2ml Vial IV 03/30/24 16:54 4 mg ONCE ONE Administration Sodium Chloride 10 ml 03/30/24 17:45 03/30/24 17:46 Sodium Chloride 0.9% 10ml Syr (Rad Only) IV 03/30/24 17:46 10 ml ONCE ONE Administration ORDERS Category Date Time Status CT abdomen pelvis w con Stat Cat Scan 03/30/24 16:53 Completed POCUS Point of Care (ER Only) Stat Exams 03/30/24 16:53 Completed CBC w/Auto Diff [Complete Blood Count Auto Diff] Stat Lab 03/30/24 17:05 Completed CMP [Comprehensive Metabolic Panel] Stat Lab 03/30/24 17:05 Completed INR [Prothrombin Time INR] Stat Lab 03/30/24 17:05 Completed Lipase Stat Lab 03/30/24 17:05 Completed UA [Urinalysis and Microscopic] Stat Lab 03/30/24 16:40 Completed Urine , HCG Qual. Stat Lab 03/30/24 16:40 Completed Urine Culture Stat Micro 03/30/24 16:40 Received Medical Decision Narrative: In summary patient is a 3-year-old female who presents to the emergency department for evaluation of right upper quadrant abdominal pain. Patient is hemodynamically stable upon arrival, afebrile. Physical exam is remarkable for a soft abdomen with mild right upper quadrant tenderness on palpation but negative Langley sign currently with no rebound or guarding or rigidity. Bowel sounds normal active. No epigastric tenderness. Breath sounds are clear and equal bilaterally to the bases.. Differential diagnosis includes constipation gastritis gastroenteritis pancreatitis etc. Initial workup will be conducted with hematologic labs urinalysis CT scan abdomen pelvis. Initial interventions include Tylenol Toradol. Initial workup reviewed by me was that her hematologic labs are nonactionable however I do see an increased stool burden in the right hemicolon but no colonic wall thickening or concerning signs of obstruction, she also might have right hydroureter but no stone is seen no stranding and no other acute abdominal process noted and her urinalysis shows trace blood but nitrite and leukocyte esterase negative on the dipstick and the microscopic exam shows 3-5 red blood cells 5-10 whites 10-20 epithelial cells and 3+ bacteria in her POCUS right upper quadrant ultrasound is normal. Upon repeat evaluation treatment and her symptoms. Given this patient is appropriate for discharge with a prescription for Macrobid and follow-up with her PCP for no improvement or worsening symptoms or return to ER as needed. I was consulted by the ROMAN, and we discussed the complexity of the problems being addressed. I approved the treatment and management plan for this patient's care in the Emergency Department, thus performing a substantive portion of the medical decision making. Carlin Cifuentes MD Procedures <Carlin Cifuentes MD - Last Filed: 03/30/24 20:48> Limited Ultrasound Indication:: Limited RUQ ultrasound Indication: Right upper quadrant pain Identified structures: -Gallbladder -Gallbladder wall -Common bile duct -Liver Findings: Sonographic Langley sign: Absent Gallstones: Absent Sludge: Absent Pericholecystic fluid: Absent Maximal GB wall thickness (mm) (normal is </= 3mm): Normal Common bile duct width (mm) (normal is </= 6mm): Normal Gallbladder width (cm) (normal is < 4cm): Normal Gallbladder length (cm) (normal is < 10cm): Normal Impression: Normal gallbladder Images were saved to permanent archive The study was technically adequate CPT 57680-13 This study was performed by me, and I personally interpreted all images/videos. Based on my clinical judgement, these images were adequate and did not necessitate further imaging. Critical Care <JUANCHO Sanford - Last Filed: 03/30/24 20:14> Critical Care Time Critical Care Time: No
[2024-03-30 16:48] VITALS: BP 121/82; PULSE 77; RESP 20; TEMP 36.7; O2SAT 100; BMI 32.4
--- NOTE | 2024-03-30 16:53 | CT_ITS ---
PROCEDURE INFORMATION: Exam: CT Abdomen And Pelvis With Contrast Exam date and time: 03/30/2024 5:47 PM Age: 33 years old Clinical indication: Abdominal pain; Additional info: Right upper quadrant abdominal pain TECHNIQUE: Imaging protocol: Computed tomography of the abdomen and pelvis with contrast. Radiation optimization: All CT scans at this facility use at least one of these dose optimization techniques: automated exposure control; mA and/or kV adjustment per patient size (includes targeted exams where dose is matched to clinical indication); or iterative reconstruction. Contrast material: ISOVUE; Contrast volume: 75 ml; Contrast route: IV; COMPARISON: CR XR CHEST 2V 09/17/2020 11:43 AM FINDINGS: Liver: Normal. No mass. Gallbladder and biliary ducts: Gallbladder is contracted Pancreas: Normal. No ductal dilation. Spleen: Normal. No splenomegaly. Adrenal glands: Normal. No mass. Kidneys and ureters: Punctate nonobstructing right renal calculus. No ureteral calcifications. . Mild dilatation of the proximal right ureter and right collecting system Stomach and bowel: Unremarkable. No obstruction. No mucosal thickening. Appendix: Normal appendix Intraperitoneal space: Unremarkable. No free air. No significant fluid collection. Vasculature: Unremarkable. No abdominal aortic aneurysm. Lymph nodes: Unremarkable. No enlarged lymph nodes. Urinary bladder: Unremarkable as visualized. Reproductive: Unremarkable as visualized. Bones/joints: Unremarkable. No acute fracture. Soft tissues: Unremarkable. IMPRESSION: Mild dilatation of the proximal right ureter and right collecting system. However no ureteral calculus. The findings could be due to a recently passed stone, a noncalcified stone or clot or soft tissue process in the right ureter, or an infectious/inflammatory process of the right collecting system.
[2024-03-30 16:59] LABS: Microscopic, Urine URINE MICROSCOPIC (MICROSCOPIC)
[2024-03-30 17:03] LABS: Appearance,Urine CLEAR (Clear); Bilirubin,Urine Negative (Negative); Blood, Urine TRACE-I (Negative); Color,Urine YELLOW (Yellow); Glucose,Urine (UA) Negative (Negative); Ketones,Urine Negative (Negative); Leukocyte Esterase,Urine Negative (Negative); Nitrate,Urine Negative (Negative); Protein,Urine Negative (Negative); Specific Gravity, Urine 1.025 (1.005-1.030); Urobilinogen,Urine 0.2 EU/dl (0.2)
[2024-03-30] MEDS: ACETAMINOPHEN 500MG TAB 1000 MG PO (17:04)
[2024-03-30] MEDS: KETOROLAC 30MG/ML VIAL 15 MG IV (17:04)
[2024-03-30] MEDS: ONDANSETRON 4MG/2ML VIAL 4 MG IV (17:05)
--- NOTE | 2024-03-30 17:08 | PC.NURSE ---
labs collected and sent to lab
[2024-03-30 17:14] LABS: Urine Pregnancy, HCG Qual. Negative (Negative)
[2024-03-30 17:19] LABS: Albumin Level 4.5 g/dl (3.5-5.0); Basophils # 0.1 K/mm3 (0-0.2); Basophils % 1.7 % (0.1-2.0); Chloride 102 mmol/L (98-107); Eosinophils # 0.1 K/mm3 (0.0-0.4); Hematocrit 41.9 % (37.0-47.0); Hemoglobin 13.3 g/dL (12.2-16.2); Lymphocytes # 2.6 K/mm3 (0.7-4.5); Lymphocytes % 36.3 % (10-50); Mean Corpuscular HGB Conc 31.7 g/dL (31.8-35.4); Mean Corpuscular Hemoglobin 26.4 pg (27.0-31.2); Mean Corpuscular Volume 83.4 fl (81-99); Mean Platelet Volume 7.4 fl (7.4-10.4); Monocytes # 0.3 K/mm3 (0.1-1.0); Monocytes % 3.9 % (1.7-9.3); Neutrophils % 56.2 % (37.0-80.0); Platelet Count 374 K/mm3 (142-424); Potassium 3.4 mmoL/L (3.5-5.1); Red Blood Count 5.02 M/mm3 (4.20-5.40); Red Cell Distribution Width 14.3 % (11.5-17.5); Sodium 137 mmol/L (136-145); White Blood Count 7.2 K/mm3 (4.8-10.8)
[2024-03-30 17:22] LABS: Alanine Aminotransferase 23 U/L (12-78); Albumin/Globulin Ratio 1.3 (1.1-1.8); Alkaline Phosphatase 65 U/L (38-126); Anion Gap 13.4 mEq/L (5-15); Aspartate Amino Transferase 26 U/L (14-36); Bilirubin,Total 0.6 mg/dl (0.2-1.3); Blood Urea Nitrogen 10 mg/dl (7-17); Carbon Dioxide 25 mmol/L (22.0-30.0); Creatinine Clearance Estimated 138 mL/min (50-200); Estimated Glomerular Filt Rate 82 ml/min (>60); GFR (African American) 99 ML/MIN (>60); Globulin 3.4 g/dL (1.3-3.2); Glucose 97 mg/dl (74-100); Lipase 71 U/L (23-300); Total Protein,Serum 7.9 g/dl (6.3-8.2)
[2024-03-30 17:24] LABS: INR 0.88 (0.9-1.1)
[2024-03-30 17:29] LABS: Bacteria,Urine 3+ /lpf
[2024-03-30] MEDS: IOPAMIDOL-370 (76%);100ML BOTTLE 75 ML IV (17:46)
[2024-03-30] MEDS: SODIUM CHLORIDE 0.9% 10ML SYR (RAD ONLY) 10 ML IV (17:46)
--- NOTE | 2024-03-30 17:48 | PC.NURSE ---
PT RETURNED FROM CT, WARM BLANKET PROVIDED
[2024-03-30 18:30] VITALS: BP 135/85; PULSE 65; O2SAT 100
[2024-03-30 19:12] VITALS: BP 146/106; PULSE 67; RESP 18; TEMP 36.8; O2SAT 100
== END 2024-03-30 19:23 | disposition home or self-care (01) ==
LOC: UTC 16:32 → ER 16:33
PROVIDERS: Physician Assistant; Emergency Provider Emergency Medicine; PCP Physician Assistant
DX: R10.11 Right upper quadrant pain (principal); K59.00 Constipation, unspecified; R19.7 Diarrhea, unspecified; R11.0 Nausea; R14.0 Abdominal distension (gaseous)
CPT/HCPCS: 74177; 80053; 81001; 81025; 83690; 85025; 85610; 87086; 96374; 96375; 99285; J1885; J2405; Q9967

== ENCOUNTER 2024-12-17 13:47 | Emergency (ER) | payer OTHER, SELFPAY ==
--- OUTSIDE RECORDS SUMMARY | 2024-10-19 15:30 | XMS_ITS | Encounter Summary ---
Author Organization [facility] Address [address] [place] [address] Care Team Providers Care Content Creation Manager Name Role Phone Cinthya Cali Primary Care Provider [phone] Reason for Visit * Consultation (Routine) - Denied Specialty Diagnoses / Procedures Referred By Contac t Referred To Contact Surgical Oncology / Hematology and Oncology Diagnoses At high risk for breast cancer 09/24 BOOKED Chetna Chen, [place], [facility] [address] [place] [phone] Phone: tel: fax: Referral ID Status Reason Start Date Expiration Date V isits Requested Visits Authorized [id number] Denied Specialty Services Required 08/18/2024 02/17/2026 1 0 Encounter Details Date Type Department Care Team (Late st Contact Info) Description 10/19/2024 3:30 PM EDT Office Visit [facility] [address] [place] [address] Chely Woodall MD [address] [facility] [address] [place] [address] At high risk for breast cancer Social History Tobacco Use Types Packs/Day Years Used Date Smoking Tobacco: Former Cigarettes 0.5 20.5 S tarted: 06/09/2003 Smokeless Tobacco: Never Tobacco Cessation:Counseling Given: Not Answered Alcohol Use Standard Drinks/Week Comments No 0 (1 standard drink = 0.6 oz pur e alcohol) PHQ-2 Answer Date Recorded Patient Health Questionnaire-2 Score 0 07/09/2024 PHQ-9 Answer Date Recorded Patient Health Questionnaire-9 Score 2 07/09/2024 Comments No Sex and Gender Information Value Date Recorded Sex Assigned at Not on file Legal Sex Female 8:45 PM EDT Gender Identity Not on file Sexual Orientation Not on file documented as of this encounter Last Filed Vital Signs Vital Sign Reading Time Taken Comments Blood Pressure 121/81 10/19/2024 3:42 PM EDT Pulse 85 10/19/2024 3:42 PM EDT Temperature 36.3 C (97.4 F) 10/19/2024 3:42 PM EDT Respiratory Rate 17 10/19/2024 3:42 PM EDT Oxygen Saturation 98% 10/19/2024 3:42 PM EDT Inhaled Oxygen Concentration - - Weight 89.7 kg (197 lb 12 oz) 10/19/2024 3:42 PM EDT Height 167.6 cm (5' 6 ) 10/19/2024 3:42 PM EDT Body Mass Index 31.92 10/19/2024 3:42 PM EDT documented in this encounter Miscellaneous Notes * Progress Notes - Chelsie Cagle MD - 10/19/2024 3:30 PM EDT [facility] New Patient Consultation This is the first [facility] visit for this 34 y.o. female referred by Chetna Chen APRN,* for bilateral prophylactic mastectomy. History of Present Illness Shelley Bar is a 34 y.o. female with a strong family history of malignancy. She has a calculated lifetime risk of breast cancer of 25.4%. Her sister was diagnosed with breast cancer at 35. Her mother was diagnosed with colon cancer at 37 and has also had ovarian cancer and she has a grandfather with a history of colon cancer. Patient has had genetic testing and is negative for any pathogenic mutations. She has been undergoing breast, gynecologic and colon screening at appropriate intervals. Her last breast screening imaging was David of this year. Her next imaging study will be 01/14/2025. Patient has a She denies breast pain, skin or nipple changes, and nipple discharge. She also deniesunintentional weight loss, fatigue, or new back pain, neck pain, or headaches. She has always had inverted nipples. She denies any new health concerns. She is not on any blood thinners. 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 She lives in [place], [place] with her arline. Patient stopped smoking in March of 2024 but started back again two weeks ago. She is smoking less than she did previously but is still smoking 3 cigarettes a day. Her last cigarette was two days ago. Oncology History Health Maintenance Colonoscopy: She has undergone three colonoscopies. Started doing screening colonoscopies in her late 20s because of family history. History of colon polyps but no malignant lesions. 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 HENT: Negative for congestion, rhinorrhea, sinus pressure and sore throat. Eyes: Negative for discharge, redness and itching. Respiratory: Negative for chest tightness and shortness of breath. Cardiovascular: Negative for chest pain and leg swelling. Gastrointestinal: Negative for abdominal distention. Genitourinary: Negative for difficulty urinating and menstrual problem. Skin: Negative for pallor and rash. Neurological: Negative for seizures and facial asymmetry. Hematological: Negative for adenopathy. Past Medical History Medical History[1] Past Surgical History Surgical History[2] Social History Patient reports that she has quit smoking. Her smoking use included cigarettes. She started smokingabout 21 years ago. She has a 10.2 pack-year smoking history. She has never used smokeless tobacco.She reports that she does not drink alcohol and does not use drugs. Support person: Housing: Secure Transportation: Available and easily accessible Family History Family History[3] Obstetric and Gynecologic History ITALIAN LECTURER/Breast Hx: -Menarche: 13 -LMP: 06/2023 -OCP hx: yes, ~ 5 years -G1@: 20 - -Breast feeding (m): yes, 4 months/6 weeks/2 weeks -Infertility treatments: no -Menopause: no -HRT: no -Hyst/Ooph: no -Previous Bx: no No LMP recorded. Current Medications Medications Ordered Prior to Encounter[4] Allergies Allergies[5] PHYSICAL EXAMINATION ECOG Performance Status: 0: Fully active, able to carry on all pre-disease performance without restriction Vital Signs: Visit Vitals OB Status Having periods Smoking Status Former General: The patient is a well-developed individual who appears the stated age, the patient's speech pattern and movements are normal, and affect is appropriate. Head: The head is normocephalic. Neck: The neck is supple, the thyroid is not enlarged, there are no palpable masses, and the trachea is in the midline. Lymphatics: The supraclavicular, submental, cervical, and axillary regions are free of significant lymphadenopathy. Chest: The chest expands symmetrically and the AP diameter appears normal. Heart: The rhythm is regular and the heart is not enlarged. Right Breast: Nipple is inverted, there is no skin dimpling with movement of the pectoralis, there is no nipple retraction, no nipple discharge can be elicited, the parenchyma is mildly nodular, there are no dominant masses, and the axillary tail is normal. Left Breast: Nipple is inverted, there is no skin dimpling with movement of the pectoralis, there is no nipple retraction, no nipple discharge can be elicited, the parenchyma is mildly nodular, thereare no dominant masses, and the axillary tail is normal. Abdomen: The abdomen is soft, flat and non-tender and there are no palpable masses. Back: There is no vertebral column tenderness. Skin: The skin appears normal and there are no suspicious rashes or lesions. Extremities: The extremities are without deformity, cyanosis, and edema. IMAGING: Imaging has been reviewed here by our radiologists; we have personally reviewed these images/imaging studies. MAMMOGRAPHY BREAST SCREENING TOMOSYNTHESIS BILATERAL (07/09/2024) Study Result Narrative & Impression EXAM: Mammography Breast Screening with Tomosynthesis REASON FOR EXAM: Screening Mammogram HISTORY: Patient is 34 y.o. Family medical history includes breast cancer in 4 relatives (maternal cousin, mother's sister, other (comments: maternal great aunt), sister (age of onset: 35)), colon cancer in maternal grandmother, and ovarian cancer in 2 relatives (maternal grandmother, mother). Hormone history includes control (4 years). COMPARISON STUDIES: Compared to: 07/08/2023 Mammography Breast Screening Tomosynthesis Bilateral at [facility] BREAST COMPOSITION: The breasts are heterogeneously dense, which may obscure small masses. FINDINGS: There are no suspicious masses, calcifications, or areas of architectural distortion. IMPRESSION: No mammographic evidence of malignancy. / BI-RADS CATEGORY: Overall: 1 - Negative RECOMMENDATION: Annual Screening Mammogram given high risk. Breast MRI in 6 months. Patient Lifetime Risk Score of Breast Malignancy: 18.7% This risk assessment is calculated using the Cathy Risk Assessment model which may underestimate thelifetime risk of breast malignancy. COMMUNICATION: Computer-aided detection (CAD) and tomosynthesis were utilized by the radiologist in the interpretation of this examination. The results and recommendations will be sent to the patient in a printed lay language version of the imaging report. CARE TEAM Primary Care Physician: Cinthya Cali PA Plastic and Reconstructive Surgery: Chetna Chen APRN Medical Oncology, High risk clinic: Inge López APRN Radiation Oncology: None ASSESSMENT: Shelley Bar is a 34 y.o. female who was referred by Inge López APRN for prophylactic bilateral mastectomy. AJCC (8th Edition) Clinical Stage: Cancer Staging No matching staging information was found for the patient. DISCUSSION: Shelley and I reviewed her situation in detail including her clinical exam findings, imaging and pathology reports. We discussed that the procedure would involve removal of the nipple and possibly asmall area of skin around the nipple to excise all of the breast tissue. From review of plastic surgery plan, she will likely proceed with placement of tissue expanders and drains that day if skin perfusion is appropriate. She will likely require two weeks off of work, but we explained that this isan estimate and may change depending on post op recovery. We explained the risks of surgery including bleeding, infection, and need for additional procedures. We also explained the benefit of surgerybeing the reduction in risk of breast cancer. Patient asked if getting a breast reduction alone would reduce her cancer risk. We explained that this is difficult to quantify in termsof a percent riskreduction with removal of some breast tissue. We explained that if her goal is to reduce risk of breast cancer, then the recommended procedure is bilateral mastectomy. We also discussed the importance of smoking cessation prior to surgery. She has not smoked a cigarette in two days. She understandsthe risks and will continue to abstain in preparation for her surgery. PLAN: - Smoking cessation - Follow up in clinic for surgery consent and teaching The patient expressed understanding of the treatment plan. All questions were answered to her apparent satisfaction. She was encouraged to contact the office if any questions or concerns arise. Dr. Chely Woodall MD Glass Science Engineer of Surgical Oncology [facility] I spent 60 minutes on this encounter, including preparing to see the patient, which involved review/interpretation of diagnostics and reports; obtaining and/or reviewing separately obtained history; performing appropriate physical exam; ordering/scheduling medications, tests or procedures; communicating findings, discussing diagnosis, prognosis, and treatment plans and counseling/educating the patient, family and/or caregiver; documentation in EMR; and care coordination. In addition, I spent another 4 minutes in smoking cessation counseling. Discussing the need to stopsmoking, the data that shows increased wound infections, and the need for improved respiratory function in preparation for surgery. We also discussed and I recommended nicotine alternatives. [1] Past Medical History: Diagnosis Date Anemia Anxiety and depression Asthma Disease of thyroid gland GERD (gastroesophageal reflux disease) Seasonal allergies Vitamin B12 deficiency [2] Past Surgical History: Procedure Laterality Date BELT ABDOMINOPLASTY N/A Abdominoplasty from [facility] SECTION, CLASSIC SECTION, LOW TRANSVERSE N/A Section from [facility] ELBOW SURGERY Right TUBAL LIGATION N/A [3] Family History Problem Relation Name Age of Onset Rectal cancer Mother Michelle Ovarian cancer Mother Michelle Cancer Mother Michelle Chemotherapy Mother Michelle Diabetes Mother Michelle Heart disease Mother Michelle Hypertension Mother Michelle Kidney disease Mother Michelle Mental illness Mother Michelle Radiation Therapy Mother Michelle Hypertension Father Moises Mental illness Father Moises Breast cancer Sister Charline 35 Cancer Sister Charline Chemotherapy Sister Charline Radiation Therapy Sister Charline Breast cancer Mother's Sister Colon cancer Maternal Grandmother Elina Ovarian cancer Maternal Grandmother Elina Pancreatic cancer Maternal Grandmother Elina Cancer Maternal Grandmother Elina Lung cancer Maternal Grandfather Jovan Cancer Maternal Grandfather Jovan Chemotherapy Maternal Grandfather Jovan Skin cancer Paternal Grandmother Shauna Diabetes Paternal Grandmother Shauna Hypertension Paternal Grandmother Shauna Breast cancer Maternal Cousin Breast cancer Other maternal great aunt [4] Current Outpatient Medications on File Prior to Visit Medication Sig Dispense Refill albuterol 108 (90 Base) MCG/ACT inhaler Inhale 2 puffs every 4 (four) hours as needed for wheezing. clonazePAM (KlonoPIN) 0.5 MG tablet Take 1 tablet (0.5 mg) by mouth in the morning. fexofenadine (Luzma) 180 MG tablet Take 1 tablet (180 mg) by mouth in the morning. Fluticasone Propionate (FLONASE ALLERGY RELIEF NA) Inhale 1 spray in the morning. ipratropium-albuterol (Duo-Neb) 0.5-2.5 mg/3 mL nebulizer solution levothyroxine (Synthroid, Levoxyl) 50 MCG tablet Take 1 tablet (50 mcg) by mouth in the morning. montelukast (Singulair) 10 MG tablet Take 1 tablet (10 mg) by mouth nightly. omeprazole (PriLOSEC) [address] capsule Take 1 capsule (40 mg) by mouth in the morning. ondansetron (Zofran) 4 MG tablet sertraline (Zoloft) 50 MG tablet Take 1.5 tablets (75 mg) by mouth in the morning. No current facility-administered medications on file prior to visit. [5] Allergies Allergen Reactions Bromfed Dm [[id number]] Hives Cosigned by Chely Woodall MD at 10/20/2024 6:06 PM EDT Associated attestation - Chely Woodall MD - 10/20/2024 6:06 PM EDT Images from the original note were not included. Attending Attestation: I personally saw and evaluated the patient with the resident. I attest to being involved in providing substantive time in patient care. I discussed the case with them and agree with the findings as documented. The discussion and plan reflect my edits and medical decision making. Dr. Chely Woodall MD Glass Science Engineer of Surgical Oncology [facility] documented in this encounter Plan of Treatment Upcoming Encounters Date Type Department Care Team (Late st Contact Info) Description 12/22/2024 9:30 AM EDT Office Visit [facility] Plastic & Reconstructive Surgery [address] [place] [phone] Chetna Chen, MUFFLER INSTALLER, DNP [address] [phone] 12/29/2024 11:30 AM EDT Office Visit [facility] Breast [facility] [place] [address] [place] [address] Ineg López, MUFFLER INSTALLER [address] [facility] [address] [place] [address] 12/30/2024 1:30 PM EDT Office Visit [facility] Plastic & Reconstructive Surgery [address] [place] [phone] Jose Hyman MD [address] [phone] 01/14/2025 11:00 AM EDT Appointment [facility] Radiology [address] [place] [address] 01/14/2025 2:00 PM EDT Office Visit [facility] [address] [facility] [place] [address] Inge López, MUFFLER INSTALLER [address] [place] [address] documented as of this encounter Visit Diagnoses Diagnosis At high risk for breast cancer documented in this encounter Additional Health Concerns Assessment Noted Time PHQ-9 Depression Total Score: 2 07/09/19 25 2:29 PM EST A fall risk assessment has been complete d for the patient 10/19/2024 3:44 PM EDT A Body Mass Index follow-up plan has been documented for the patient 08/18/2024 3:04 PM EDT documented as of this encounter Care Teams Content Creation Manager Relationship Specialty Start Date End Date Cinthya Cali PA [address] [place], [place] [id number] PCP - General 10/20/20 documented as of this encounter
--- OUTSIDE RECORDS SUMMARY | 2024-12-01 11:30 | XMS_ITS | Encounter Summary ---
Author Organization [facility] Address [address] [id number] Care Team Providers Care Business Account Specialist Name Role Phone Cinthya Cali Primary Care Provider Reason for Visit * Reason Comments Follow-up Encounter Details Date Type Department Care Team ([facility] st Contact Info) Description 12/01/2024 11:30 AM EDT [facility] [address] [facility]nd [place] [address] Inge López, SILK SOAKER [address] [facility] [address] [place] [address] At high risk for breast cancer (Primary Dx); Family history of malignant neoplasm of breast Social History Tobacco Use Types Packs/Day Years [...] Sign Reading Time Taken Comments Blood Pressure 120/81 12/01/2024 11:23 AM EDT Pulse 87 12/01/2024 11:23 AM EDT Temperature 36.7 C (98 F) 12/01/2024 11:23 AM EDT Respiratory Rate 16 12/01/2024 11:23 AM EDT Oxygen Saturation 98% 12/01/2024 11:23 AM EDT Inhaled Oxygen Concentration - - Weight 89.4 kg (197 lb 1.5 oz) 12/01/2024 11:23 AM EDT Height 167.6 cm (5' 6 ) 12/01/2024 11:23 AM EDT Body Mass Index 31.81 12/01/2024 11:23 AM EDT documented in this encounter Miscellaneous Notes * Nicki Cabrera RN - 12/01/2024 11:32 AM EDT Images from the original note were not included. 9 Taking Care of Your Drain Tube ([place]) During surgery, your doctor placed a drain that comes out of your skin. It will remove the fluid that collects near your incision. The drain has a plastic tube and a bulb to hold the fluid. It works by using a small amount of suction. This handout contains important information about caring for your drain tube. When to call your doctor - you need to know when it is important to call your doctor about a problem or concern with your drain. Call your doctor if: ? The tube falls out or the incision opens. ? You see pus around the drain tube or incision. ? You see any of these signs that the skin is infected - it is: * red * swollen * tender to the touch * pulled away from the drain tube ? You have a fever of 101.5 or more. ? The fluid in the drain smells bad. ? The fluid in the drain changes color or turns bloodier. ? You have pain at the incision site that was not there before. ? There is a big change in the amount of fluid that drains. For example, if you need to empty the bulb after 4 hours when you normally empty it every 6 hours. ? The bulb part of the drain fills up with air or will not stay flat. ----- Call your doctor right away if the amount of fluid doubles in a 4-hour period. ----- Write down the phone number you would call here: How to Empty Your Drain Tube You need to empty the fluid that drains into the bulb every 4-8 hours. Don?t let the bulb fill up more than half full. What you need: ? Gauze pads (4x4s) ? Measuring cup ? Drain Amounts Chart (at the end of this handout) Drain the tube: 1. Wash your hands with warm, soapy water. 2. Pull the plug out of the bulb. 3. Empty the fluid from the bulb into the measuring cup. Don?t let the bulb touch the cup. 4. Make sure there is no fluid left in the bulb. 5. Wipe off the outside of the bulb plug with a clean gauze 4x4. Throw the 4x4 away after using. 6. Squeeze all the air out of the bulb. While the air is out of the bulb, put the plugback into theopening. The bulb should stay flat. Some people have trouble keeping the bulb squeezed flat and putting the plug back in at the same time. If this happens, place the bulb on a flat hard surface, like a counter top, and use one hand to keep it flat. Use your other hand to replace the plug. 7. Write down how much fluid is in the measuring cup on the Drain Amounts Chart, along with the date and time. 8. Pour the fluid into the toilet and flush. How to Unclog Your Drain Tube Sometimes clots will clog your drain tube, causing fluid to back up into your body or spill out around the tube site. It is very important to take care of this problem right away. If you see or feel a clot in the tube, make sure you squeeze it out into the bulb. This is called ?milking? or ?stripping? your drain tube. Do this when the drain does not seem to beworking properly. 1. [employer] the tube near the skin and hold it in place with one hand. This will keep the tube from pulling out of the skin. 2. With your other hand, pinch the tube between your thumb and first finger. 3. Starting near the skin where you are holding the tube in place, pull your fingers along the tubetoward the bulb. This helps push the clogged fluid into the bulb. * Stop right away if you start to pull the tube away from your skin! 4. If the fluid still does not drain after you try this, call your doctor. Reminders ? Don?t let the tube get kinked. ? Don?t squeeze the bulb with the plug in place. ? Fill in your Drain Amounts Chart every time you empty the bulb. ? Remember to bring your Drain Amounts Chart to your clinic appointment. Drain Amounts Chart Write down the amount of fluid that you empty from your drain bulb every 4-8 hours. Empty the bulb more often if it fills up. Some people may have 2 drains. If you only have 1 drain, ignore the chart for Drain #2. Drain #1 Drain #2 Date/Time Amount Date/Time Amount Date/Time Amount Date/Time Amount 01/15/09 7 a.m. 20ml * Jojo MitchellMAXIM - Nicki Clifford RN - 12/01/2024 11:32 AM EDT Images from the original note were not included. 916 Bathing Before Surgery Basic instructions ? You need to bathe with Hibiclens (chlorhexidine) before surgery. This will clean your skin and remove germs that live on the skin. This reduces your risk of infection after surgery. ? You?will get?free packets in the clinic, or you can?buy Hibiclens at most drug stores. ? You need to bathe with Hibiclens twice before surgery - once the night before surgery and again the morning of surgery. ? Do not use Hibiclens on your hair or anywhere above the neck. ? You should not shave with a razor or use hair removal creams near the surgery site for 4 days before surgery. Night before surgery If you take a shower or tub bath: 1. Wash with regular soap and water and rinse off. 2. You may wash your hair the night before. Shampoo and rinse as usual. 3. Pour 1 ounce (2 tablespoons) of Hibiclens on a clean washcloth. Wash the area where you will be having your surgery first. Then wash the rest of the body, leaving the groin area until last. 4. Allow the Hibiclens to stay on the skin for 5 minutes, then rinse off completely. 5. Use a clean towel to dry off. 6. Put on clean clothing and be sure to have clean sheets on your bed. Morning of surgery ? Repeat the above steps except do not shampoo your hair. If you develop a skin problem between now and your surgery, please tell your doctor as soon as possible at [phone]. * Jojo MitchellMAXIM - Nicki Clifford RN - 12/01/2024 11:32 AM EDT Images from the original note were not included. 704 After Mastectomy Staying Active You need to keep your whole body active after your surgery. ? Take deep breaths and cough. ? Walk around your room while you are in the hospital. You don?t have to, and shouldn?t stay in bed. ? Use your arm for normal activities like bathing and eating. But do not lift anything over 5 pounds until your doctor says it is ok. ? Do not raise your arm straight over your head on the side where you had your surgery. ? You should wear button-up shirts for easy dressing. o If you wear thread pulling machine attendant shirts, wear a larger size than normal. Put the arm on the surgery side in first. Then pull the shirt over your head without lifting that arm. ? Most people may return to driving once the drains are removed. Arm and Shoulder Exercises ? Stretching exercises are very important after breast surgery. We will show you how to do them. ? Don?t do any exercised until all of the drains are removed. ? After all drains are removed, do the arm-lift exercises 4 times daily. Keep doing this for 4 to 6weeks after surgery. Taking Care of Your Incision ? Most women go home wearing a surgi-bra. It keeps the gauze padding (bandage) in place without tape. ? Your incision is closed on the inside of your skin with stitches that will dissolve in 4-6 weeks. ? There will be either paper strips called steri-strips or skin glue on the incision. The edges of the steri-strips will curl up in about 1 week and will begin falling off in 1-2 weeks. They can be removed at 2 weeks after surgery (usually in your follow up appointment). If skin glue was used this will flake off in 1-2 weeks. ? Do not apply any lotions or creams to your incision for the first 2 weeks after surgery. Gauze Padding (Bandage) ? You may remove the gauze padding (bandage) on your breast 2 days after surgery. It does not need to be replaced. It is ok if your incision is exposed to the air. ? The surgi-bra is for your comfort. You don?t need to wear it if it?s not comfortable. Grooming ? You may shower 2 days after your surgery. ? No soaking in the tub, hot tubs, or swimming while drains are in place and for 2 weeks after drain removal. ? Try not to irritate the incision when shaving or putting on deodorant. Use a mirror for these activities. Drain Care You may go home with at least 1 drain placed into your skin. We will teach you how to care for the drain. Numbness and Tingling The upper part of your arm and around the incision on the breast may feel numb and tingly. And you may feel sharp pain like an electric shock in your arm or breast. This is normal and may get better over time. Swelling ? A small amount of swelling in the breast, chest wall, or armpit is normal during the first month after surgery. ? Use pillows to raise your whole arm above your heart to help with swelling in the arm or armpit. Taking Blood or Injections ? If you had a sentinel lymph node biopsy (where only 1-3 lymph nodes are taken out): You can have blood draws, injections, and IV?s in the arm on the same side. ? If you have had an axillary lymph node dissection (where all lymph nodes are removed and you had a drain after the procedure): Avoid having blood draws, injections, and IV?s in the arm on the side that the lymph node dissection was performed. If there are no other options, tell the provider aboutyour history of having breast cancer and an axillary lymph node dissection. Monthly Breast Self-Exam Do a breast self-exam every month. If you don?t know how to do a breast self- exam, ask your doctor or nurse to teach you how. You can also get a booklet on breast self-exam in the Breast Center. Changes You Will Feel 2 Weeks After Surgery You may feel a pain in your armpit, down your arm, or in your breast. This is a normal part of healing. To help you can: ? Start exercising more 2 weeks after surgery.Take a mild pain medicine like Tylenol or Ibuprofen. ? Take warm showers. Also, your incision(s) may feel thick and lumpy. This is a normal part of healing. To help you can: ? 2 weeks after surgery, you can start rubbing the incision with a lotion that has Vitamin E or pure lanolin in it. You can get these kinds of lotions at a drug store, a discount store, or a health food store. ? You can also rub Vitamin E on the incision. Prick a Vitamin E capsule with a pin. Squeeze out theoil and apply it to the incision. ? Don?t use perfumed lotions. They may contain alcohol which will irritate your skin. ? If you have radiation therapy after surgery, ask your radiation doctor before putting on lotion or oil during your radiation therapy. ? The scar will slowly soften and become auto radiator mechanic in color over several weeks. * H&Naresh - Inge López APRN - 12/01/2024 11:30 AM EDT Images from the original note were not included. Subjective History Of Present Illness Shelley Bar is a 34 y.o. female presenting for surgical consent and teaching. Previous HPI on 10/19/2024: Shelley Bar is a 34 y.o. female [...] intervals. Her last breast screening imaging was Jun of this year. Her next imaging study will be 01/14/2025. Patient has a She denies breast pain, skin or nipple changes, and nipple discharge. She also deniesunintentional weight loss, fatigue, or new back pain, neck pain, or headaches. She has always had inverted nipples. She denies any new health concerns. She is not on any blood thinners. 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 She lives in [place], [place] with her arline. Patient stopped smoking in March of 2024 but started back again two weeks ago. She is smoking less than she did previously but is still smoking 3 cigarettes a day. Her last cigarette was two days ago. Medical/Surgical/Social/Family History I have reviewed and updated the patient history. Travel History Relevant International Travel History: Travel Screening Question Response Have you been in contact with someone who was sick? No / Unsure Do you have any of the following new or worsening symptoms? None of these Have you traveled internationally or domestically in the last month? No Travel History Travel since 10/31/24 No documented travel since 10/31/24 Allergies Bromfed dm [[id number]] Medications Current Medications[1] Objective Review of Systems Constitutional: Negative. Negative for fatigue, fever and unexpected weight change. HENT: Negative. Respiratory: Negative. Negative for shortness of breath. Gastrointestinal: Negative. Negative for diarrhea, nausea and vomiting. Genitourinary: Negative. Musculoskeletal: Negative. Neurological: Negative. Negative for headaches. Psychiatric/Behavioral: Negative. Physical Exam HENT: Head: Normocephalic. Right Ear: External ear normal. Left Ear: External ear normal. Eyes: Extraocular Movements: Extraocular movements intact. Cardiovascular: Rate and Rhythm: Normal rate. Pulmonary: Effort: Pulmonary effort is normal. Chest: Breasts: Right: No tenderness. Left: No tenderness. Comments: Breasts are examined upright and supine position. Bilateral dense and fibrocystic changesnoted. Bilateral nipples are everted and without discharge. No discreet masses or skin changes on either breast. Musculoskeletal: General: Normal range of motion. Cervical back: Normal range of motion. Lymphadenopathy: Upper Body: Right upper body: No supraclavicular, axillary or pectoral adenopathy. Left upper body: No supraclavicular, axillary or pectoral adenopathy. Skin: General: Skin is warm. Neurological: Mental Status: She is alert and oriented to person, place, and time. Psychiatric: Mood and Affect: Mood normal. Behavior: Behavior normal. Thought Content: Thought content normal. Judgment: Judgment normal. Last Recorded Vitals Blood pressure 120/81, pulse 87, temperature 36.7 ??C (98 ??F), temperature source Oral, resp. rate16, height 1.676 m (5' 6 ), weight 89.4 kg (197 lb 1.5 oz), last menstrual period 11/23/2024, SpO2 98%. Assessment & Plan At high risk for breast cancer Family history of malignant neoplasm of breast Patient presents for surgical teaching and consent. -High risk patient: lifetime risk of breast cancer is 25.4% PLAN: BILATERAL PROPHYLACTIC SKIN SPARING MASTECTOMY WITH RECON ON 12/15/[address] Woodall and Dr. Hyman Surgical consent and teaching completed today [1] Current Outpatient Medications Medication Sig Dispense Refill albuterol 108 (90 Base) MCG/ACT inhaler Inhale 2 puffs every 4 hours as needed for wheezing. clonazePAM (KlonoPIN) 0.5 MG tablet Take 1 tablet by mouth daily. fexofenadine (Luzma) 180 MG tablet Take 1 tablet (180 mg) by mouth in the morning. (Patient not taking: Reported on 11/30/2024) Fluticasone Propionate (FLONASE ALLERGY RELIEF NA) Inhale 1 spray in the morning. ipratropium-albuterol (Duo-Neb) 0.5-2.5 mg/3 mL nebulizer solution Take by nebulization as needed. levothyroxine (Synthroid, Levoxyl) 50 MCG tablet Take 1 tablet by mouth daily. montelukast (Singulair) 10 MG tablet Take 1 tablet by mouth nightly. omeprazole (PriLOSEC) [address] capsule Take 1 capsule by mouth daily. ondansetron (Zofran) 4 MG tablet (Patient not taking: Reported on 11/30/2024) sertraline (Zoloft) 50 MG tablet Take 1.5 tablets by mouth daily. No current facility-administered medications for this visit. documented in this encounter Plan of Treatment Upcoming Encounters Date Type Department Care Team (Late st Contact Info) Description 12/22/2024 9:30 AM EDT Office Visit [facility] Plastic & Reconstructive Surgery [address] [place] [address] Chetna Chen APRN, DNP [address] [address] 12/29/2024 11:30 AM EDT [facility] [address] [place] [address] Inge López APRN [address] [facility] [address] [place] [address] 12/30/2024 1:30 PM EDT Office Visit [facility] Plastic [facility] Reconstructive Surgery [address] [place] [address] Jose Hyman MD [address] [address] 01/14/2025 11:[address] [facility] Radiology [address] [place] [address] 01/14/2025 2:00 PM EDT Office Visit [facility] [address] [facility] [place] [address] Inge López, SILK SOAKER [address] [facility] Jess Lopez [facility] [address] [place] [address] documented as of this encounter Visit Diagnoses Diagnosis At high risk for breast cancer- Primary Family history of malignant neoplasm of breast documented in this encounter Additional Health Concerns Assessment Noted Time PHQ-9 Depression Total Score: 2 07/09/19 25 2:29 PM EST A fall risk assessment has been complete d for the patient 10/19/2024 3:44 PM EDT A Body Mass Index follow-up plan has been documented for the patient 08/18/2024 3:04 PM EDT documented as of this encounter Care Teams Business Account Specialist Relationship Specialty Start Date End Date Cinthya Cali PA [address] [place], [place] [id number] PCP - General 10/20/20 documented as of this encounter
--- OUTSIDE RECORDS SUMMARY | 2024-12-09 13:30 | XMS_ITS | Encounter Summary ---
Author Organization Healthcare Address [address] [place] [address] Care Team Providers Care Clin Nurse Spec Name Role Phone Cinthya Cali Primary Care Provider [phone] Encounter Details Date Type Department Care Team (Late st Contact Info) Description 12/09/2024 1:30 PM EDT Office Visit [facility] Plastic & Reconstructive Surgery [address] [place] [phone] Jose Hyman MD [address] [address] At high risk for breast cancer (Primary Dx) Social History Tobacco Use Types Packs/Day Years Used Date Smoking Tobacco: Former Cigarettes 0.5 20.5 S tarted: 06/09/2003 Smokeless Tobacco: Never Alcohol Use Standard Drinks/Week Comments No 0 [...] Sign Reading Time Taken Comments Blood Pressure 126/82 12/09/2024 1:15 PM EDT Pulse 86 12/09/2024 1:15 PM EDT Temperature - - Respiratory Rate - - Oxygen Saturation 98% 12/09/2024 1:15 PM EDT Inhaled Oxygen Concentration - - Weight 87.5 kg (192 lb 14.4 oz) 12/09/2024 1:15 PM EDT Height 165.1 cm (5' 5 ) 12/09/2024 1:15 PM EDT Body Mass Index 32.1 12/09/2024 1:15 PM EDT documented in this encounter Functional Status * Calculated C-SSRS Risk Score (Lifetime/Recent) Answer Date of Assessment Author No Risk Indicated 12/15/2024 8:30 PM EDT Ashish Medina * Question Answer Date of Assessment Author 1. Wish to be (Past 1 Month) No 12/15/2024 8:30 PM EDT Ashish Mcclendon 2. Non-Specific Active Suici crow Thoughts (Past 1 Month) No 12/15/2024 8:30 PM EDT Ashish Germain 6. Suicidal Behavior (Lifetime) No 8:30 PM EDT Ashish Mcclendon documented as of this encounter Miscellaneous Notes * Progress Notes - Darshana Adams MD - 12/09/2024 1:30 PM EDT Images from the original note were not included. [facility] Department of Surgery Division of Plastic and Reconstructive Surgery Plastic Surgery Clinic Note HISTORY OF PRESENT ILLNESS This is an initial consultation with this 34 y.o. year old female seen today at the request of Cinthya Galvan PA and/or No referring provider defined for this encounter. for breast reconstruction. Shelley Bar is a 34 y.o. female with high lifetime risk of breast cancer (25.4%) who presents for breast reconstruction. She is undergoing bilateral prophylactic skin sparing mastectomy with Dr. Woodall, followed by immediate tissue computer information systems professor placement for breast reconstruction on 12/15/24.She is looking forward to surgery but is concerned about the need for multiple surgeries. She is wanting to be significantly smaller than her current size and is wondering if the implants can be placed at the time of her mastectomy. She thinks she is a DDD but wants to be a C-D. She denies previousprocedures to her breasts before. She has no additional concerns. She is a former smoker; she has not smoked since October. She denies history of diabetes, bleeding or clotting disorders, or use of blood thinners. PAST MEDICAL HISTORY Updated and documented in EMR, reviewed during this appointment. Past Medical History[1] PAST SURGICAL HISTORY Updated and documented in EMR, reviewed during this appointment Surgical History[2] CURRENT MEDICATIONS Current Medications[3] ALLERGIES Bromfed dm [[id number]] SOCIAL HISTORY Social History Socioeconomic History Marital status: Spouse name: Not on file Number of children: 3 Years of education: Not on file Highest education level: Not on file Occupational History Not on file Tobacco Use Smoking status: Former Average packs/day: 0.5 packs/day for 20.5 years (10.2 ttl pk-yrs) Types: Cigarettes Start date: 06/09/2003 Smokeless tobacco: Never Vaping Use Vaping status: Never Used Substance and Sexual Activity Alcohol use: No Drug use: Never Sexual activity: Yes Partners: Male control/protection: None Comment: Tubal Other Topics Concern Not on file Social History Narrative Not on file Social Drivers of Health Financial Resource Strain: Not on file Food Insecurity: No Food Insecurity (06/19/2023) Received from [facility] ([place], [place], [place], [place]) Food Insecurity Food run out past 12 months: Not on file Food did not last past 12 months: Not on file Transportation Needs: Not on file Physical Activity: Not on file Stress: Not on file Social Connections: Low Risk (06/19/2023) Received from [facility] ([place], [place], [place], [place]) Family and Community Support Help with Day to Day Activities: Not on file Feeling Lonely or Isolated: Not on file Intimate Partner Violence: Not At Risk (07/30/2023) Received from [facility] Safety and Environment How often does anyone, including family and friends, physically hurt you?: Not on file How often does anyone, including family and friends, insult or talk down to you?: Not on file How often does anyone, including family and friends, threaten you with harm?: Not on file How often does anyone, including family and friends, scream or curse at you?': Not on file Housing Stability: Low Risk (06/19/2023) Received from [facility] ([place], [place], [place], [place]) Housing Stability Living situation today: Not on file Living situation problems: Not on file FAMILY HISTORY Family history is as noted on the history intake form which was reviewed and scanned into [employer]. Negative for bleeding disorders, clotting disorders or anesthesia issues. SYSTEMS REVIEW A complete 14 point review of systems was discussed with the patient at this time and was negative except as noted in the HPI. PHYSICAL EXAMINATION Vital Signs: Vitals: 12/09/24 1315 BP: 126/82 Pulse: 86 SpO2: 98% Weight: 87.5 kg (192 lb 14.4 oz) Height: 1.651 m (5' 5 ) Body mass index is 32.1 kg/m??. General: The patient is in no acute distress. She is well groomed and cooperative with the exam. GEN: Healthy appearing, alert, no acute distress SKIN: Normal color, texture; no rashes or lesions HEENT: Normocephalic, no signs of trauma, anicteric, neck with normal ROM PULM: Normal respiratory effort on room air, no audible stridor or wheeze CV: Regular rate and rhythm, palpable radial pulses PSYCH: Pleasant and normal affect NEURO: Alert and oriented x 3. Cranial nerves grossly intact, speech intact LYMPH: No palpable lymphadenopathy CHEST: bilateral breasts with Grade II ptosis, no evidence of previous scars or wounds. Left Right SN-N 30 30 IMF-N 13 13 Base Width 12 12 RADIOGRAPHS/DATA None IMPRESSION/PLAN Shelley Bar is a 34 y.o. female bilateral prophylactic skin sparing mastectomy with Dr. Woodall, followed by immediate tissue computer information systems professor placement for breast reconstruction on 12/15/24 for high lifetime risk of breast cancer. She has opted for implant-based reconstruction and overall would like to be smaller than her afognak breast size; she cites a C-D. We emphasized that due to the lack of standard bra sizing we cannot guarantee a cup size. We discussed that the option of direct to implant largely depends on the tissue remaining after mastectomy; skin sparing mastectomy may limit the tissue available. Plus, though she wants to be smaller, her desired size is still too large for direct to implant. In addition, to perform direct to implant, we would need to place the implant prepectorally, which may lead to shifting. After discussion, the patient was accepting of subpectoral tissue computer information systems professor placement, as this will ultimately help her reach her goal better. We discussed the use of ADM. We also discussed intercostal nerve repair with allograft if we were able to find transected intercostal nerves, which the patient is agreeable to if this could help with post-operative pain. Risks, benefits, indications, and alternatives were discussed, and the patient would like to proceed with surgery. The patient indicates understanding of these instructions and agrees with the plan. Darshana Adams MD Plastic & Reconstructive Surgery [1] Past Medical History: Diagnosis Date Anemia stable per patient Anxiety and depression Asthma allergy induced, controlled per patient Disease of thyroid gland GERD (gastroesophageal reflux disease) Hypothyroidism Seasonal allergies Vitamin B12 deficiency [2] Past Surgical History: Procedure Laterality Date BELT ABDOMINOPLASTY N/A Abdominoplasty from [facility] SECTION, CLASSIC SECTION, LOW TRANSVERSE N/A Section from [facility] ELBOW SURGERY Right TUBAL LIGATION N/A [3] Current Outpatient Medications: albuterol 108 (90 Base) MCG/ACT inhaler, Inhale 2 puffs every 4 hours as needed for wheezing., Disp: , Rfl: clonazePAM (KlonoPIN) 0.5 MG tablet, Take 1 tablet by mouth daily., Disp: , Rfl: fexofenadine (Luzma) 180 MG tablet, Take 1 tablet (180 mg) by mouth in the morning. (Patient not taking: Reported on 11/30/2024), Disp: , Rfl: Fluticasone Propionate (FLONASE ALLERGY RELIEF NA), Inhale 1 spray in the morning., Disp: , Rfl: ipratropium-albuterol (Duo-Neb) 0.5-2.5 mg/3 mL nebulizer solution, Take by nebulization as needed., Disp: , Rfl: levothyroxine (Synthroid, Levoxyl) 50 MCG tablet, Take 1 tablet by mouth daily., Disp: , Rfl: montelukast (Singulair) 10 MG tablet, Take 1 tablet by mouth nightly., Disp: , Rfl: omeprazole (PriLOSEC) [address] capsule, Take 1 capsule by mouth daily., Disp: , Rfl: ondansetron (Zofran) 4 MG tablet, , Disp: , Rfl: sertraline (Zoloft) 50 MG tablet, Take 1.5 tablets by mouth daily., Disp: , Rfl: Cosigned by Jose Hyman MD at 12/17/2024 8:32 AM EDT Associated attestation - Jose Hyman MD - 12/17/2024 8:32 AM EDT I saw and evaluated the patient with the resident/fellow. I discussed the case with the resident/fellow and agree with the findings and plan as documented. ATTENDING ATTESTATION: IJose MD, saw and evaluated Shelley Bar, female,34 y.o.. The patient was personally examined and her history and relative imaging studies were reviewed and personally interpreted. An independent physical exam was performed and the plan represents my personal medical decision-making. The treatment plan delineated in the note reflects my independently developed treatment plan. Treatment options including surgical versus non-operative interventions were discussed. Risks, benefits and alternatives to proceeding with breast reconstruction with implant based reconstruction and/or autologous reconstruction were discussed with the patient and/or family. Risks include but are not limited to: infection, bleeding, hematoma, wound breakdown, delayed healing, asymmetry, undesiredcosmetic outcome, breast implant associated anaplastic large cell lymphoma, the need for reoperation, total loss of nipple/skin sensation, nipple necrosis, skin contour irregularities, scarring, the potential for blood transfusion, lymphedema, blood clots, postoperative drainage, revision surgery as well as general surgical risks such as blood clot, heart attack, stroke and among others. Preoperative photographs were obtained. The patient had ample opportunity to ask questions and verbalized understanding of the surgical treatment plan. Expected postoperative recovery and restrictions were also discussed. No guarantees or warranties were offered or implied. documented in this encounter Plan of Treatment Upcoming Encounters Date Type Department Care Team (Late st Contact Info) Description 12/22/2024 9:30 AM EDT Office Visit [facility] Plastic & Reconstructive Surgery [address] [place] [address] Chetna Chen APRN, DNP [address] [phone] 12/29/2024 11:30 AM EDT Office Visit [facility] Breast Care [place] [address] [facility] [place] [address] Inge López, STORE COORDINATOR [address] [facility] [address] [place] [phone] 12/30/2024 1:30 PM EDT Office Visit [facility] Plastic & Reconstructive Surgery [address] [place] [address] Jose Hyman MD [address] [phone] 01/14/2025 11:00 AM EDT Appointment [facility] Radiology [address] [place] [address] 01/14/2025 2:00 PM EDT Office Visit [facility] Breast [facility] [address] [phone] Inge López, STORE COORDINATOR [address] [facility] [address] [phone] documented as of this encounter Visit Diagnoses Diagnosis At high risk for breast cancer- Primary documented in this encounter Additional Health Concerns Assessment Noted Time PHQ-9 Depression Total Score: 2 07/09/19 25 2:29 PM EST A fall risk assessment has been complete d for the patient 10/19/2024 3:44 PM EDT A Body Mass Index follow-up plan has been documented for the patient 12/17/2024 8:32 AM EDT documented as of this encounter Care Teams Clin Nurse Spec Relationship Specialty Start Date End Date Cinthya Cali PA [address] [place], [place] [id number] PCP - General 10/20/20 documented as of this encounter
--- OUTSIDE RECORDS SUMMARY | 2024-12-15 05:28 | XMS_ITS | Encounter Summary ---
Author Organization [facility] Address [address] [place] [address] Care Team Providers Care Senior Research Consultant Name Role Phone Cinthya Cali Primary Care Provider [phone] Reason for Referral * Consultation (Routine) - Pending Review Specialty Diagnoses / Procedures Referred By Amanda mohr Referred To Contact Plastic Surgery Diagnoses At high risk for breast cancer Chely Woodall MD [address] [address] Phone: tel: fax: Referral ID Status Reason Start Date Expiration Date Visits Requested Visits Authorized [id number] Pending Review Specialty Services Required 12/16/2024 06/17/2026 1 1 Scheduling Instructions Please follow up with Carmen Coates or Chetna Chen for drain removal, then the following (12/30) with Dr. Hyman Reason for Visit * Auth/Cert (Routine) Specialty Diagnoses / Procedures Referred By Contgurpreet t Referred To Contact Diagnoses At high risk for breast cancer At high risk for breast cancer [Z91.89] Procedures MN MASTECTOMY, SIMPLE, COMPLETE MN EA ADDNL NERVE GRAFT,SINGLE STRAND MN EA ADDNL NERVE GRAFT,MULTPL STRANDS MN TISSUE CRATER AND PACKER PLACEMENT BREAST RECONSTRUCTION Bilateral prophy skin sparing mastectomy/recon INSERTION, IMPLANT OR TISSUE CRATER AND PACKER, BREAST, FOR RECONSTRUCTION Chely Woodall MD [address] [address] Phone: tel: fax: PAV A OPERATING ROOM [address] [place] [address] Phone: tel: Referral ID Status Reason Start Date Expiration Date Visits Re quested Visits Authorized [id number] 1 1 Encounter Details Date Type Department Care Team (Late st Contact Info) Description 12/15/2024 5:28 AM EDT - 12/16/2024 10:29 AM EDT Hospital Encounter [facility] A Inpatient [facility] [address] [place] [address] Chely Woodall MD [address] [facility] Jess Lopez [address] [address] At high risk for breast cancer Discharge Disposition: Home or Self Care Social History Tobacco Use Types Packs/Day Years [...] Sign Reading Time Taken Comments Blood Pressure 99/64 12/16/2024 7:58 AM EDT Pulse 71 12/16/2024 7:58 AM EDT Temperature 37.1 C (98.7 F) 12/16/2024 7:58 AM EDT Respiratory Rate 17 12/16/2024 7:58 AM EDT Oxygen Saturation 98% 12/16/2024 7:58 AM EDT Inhaled Oxygen Concentration - - Weight 93.1 kg (205 lb 4 oz) 12/16/2024 6:28 AM EDT Height 167.6 cm (5' 6 ) 11/30/2024 2:34 PM EDT Body Mass Index 34.16 12/09/2024 1:15 PM EDT documented in this [...] Ashish Mcclendon documented as of this encounter Discharge Instructions * Discharge Instructions* Dang Golden MD - 12/16/2024 5:43 AM EDT [facility] Postoperative Discharge Instructions Follow-up Please follow-up with Inge López on 12/29/24 at 11:30am. Wound care - You may have a surgical bra on when you wake up from surgery. Please wear your surgical bra at all times until your follow up. It can be worn during sleeping for comfort, but should not be worn in the shower. - Over your incision may be steri-strips and/or surgical glue. The Steri-strips or surgical glue will begin to flake off in about one week. You can leave your incision(s) uncovered unless you have drainage. Some blood staining of the dressing can be normal, as is bruising at the site. - You may develop a harmless pocket of fluid (called a seroma ) at the surgical site(s), which maycause a sloshing sound or sensation. This is normal and will eventually disappear. If you developa seroma that is large or uncomfortable, call the office to discuss. - You may have a surgical drain to collect extra fluid from the surgical site. Please refer to additional instructions on how to care for the drain. Showering - You may shower as you normally do starting two days after surgery. The dressings are waterproof. Let soapy water run over the incision and avoid vigorous scrubbing of the surgical site. - No soaking in baths, hot tubs or public areas such as lakes or pools until cleared by your surgeon. Eating and drinking - You may return to eating your regular diet. Because you received anesthesia, we recommend you start with drinking clear liquids and a light meal to avoid getting an upset stomach. - Drink plenty of liquids to avoid constipation. If necessary you may take an egnf-lln-hypjjkn medication (such as MiraLax or Colace). Call the office if you have not had a bowel movement in more than 2 days. Activity - Minimize lifting your arms. No lifting greater than >10lbs or any strenuous activity - Must walk when discharged home - Please do not drive for at least 24 hours as you received anesthesia. If you are taking prescriptions pain medicine that makes you drowsy, please do not attempt to drive. Pain - You may experience tenderness or soreness at the surgical site(s) which is to be expected. You may also experience a sore throat or a headache which is temporary. - If narcotic pain medication was prescribed to you, please take only only as prescribed. Refills cannot be provided after regular business hours. - For pain control, you can take Tylenol and Ibuprofen, unless prohibited by another health care provider. - You may apply ice packs to the surgical site(s) for comfort.s or on weekends. - Please take medications as prescribed. If you have questions or concerns, please call [phone] during regular business hours or [phone] at any other time (after hours, weekends, and/or holidays) and ask for the [facility] TELEGRAPHER AGENT . Please call the above number if you experience: - a fever 100.4 or higher - unrelieved or increasing pain at your surgical site - significant redness of your incision(s) or surrounding area - concerning drainage from the incision(s) documented in this encounter Medications at Time of Discharge cephalexin (Keflex) 500 MG capsuleIndications: At high risk for breast cancer Take 1 capsule by mouth 4 times a day for 7 days. 28 capsule 5 12/24/19 25 clonazePAM (KlonoPIN) 0.5 MG tablet Take 1 tablet by mouth 2 times a day. 0 fexofenadine (Luzma) 180 MG tablet Take 1 tablet by mouth daily. 3 Fluticasone Propionate (FLONASE ALLERGY RELIEF NA) Inhale 1 spray in the morning. 0 ipratropium-albuter ol (Duo-Neb) 0.5-2.5 mg/3 mL nebulizer solution Take by nebulization as needed. 4 levothyroxine (Synthroid, Levoxyl) 50 MCG tablet Take 1 tablet by mouth daily. 4 methocarbamol (Robaxin) 500 MG tablet Take 1 tablet by mouth 3 times a day as needed for muscle spasms for up to 10 doses. 10 tablet 5 montelukast (Singulair) 10 MG tablet Take 1 tablet by mouth nightly. 0 naloxone (Narcan) 4 mg/0.1 mL nasal spray 1. Give 1 spray in nostril for no/slow breathing or cannot wake after opioid use 2. Call 911 3. Repeat in other nostril if symptoms continue 1 each 5 omeprazole (PriLOSEC) [address] capsule Take 1 capsule by mouth daily. 3 ondansetron ODT (Zofran-ODT) 4 MG disintegrating tablet Dissolve 1 tablet on the tongue every 6 hours as needed for nausea or vomiting. 20 tablet 5 oxyCODONE (Roxicodone) 5 MG immediate release tablet Take 1 tablet by mouth every 6 hours as needed for severe pain for up to 10 doses. 10 tablet 5 sertraline (Zoloft) 50 MG tablet Take 1.5 tablets by mouth daily. documented as of this encounter Miscellaneous Notes * Nursing Note - Chiquita Banda RN - 12/16/2024 8:42 AM EDT AVS discharge instructions printed and reviewed: s/s of infection, when to call doctor, how to reach doctor, follow up, discharge diet and activity, home medications to continue, new medications, felicita drain care, showering. Educational attachments given and reviewed: new medications, surgical procedure, FELICITA drain care and log. Meds to beds to deliver. PIV removed. * Jojo OnFHIR - Chiquita Banda RN - 12/16/2024 7:48 AM EDT Images from the original note were not included. 704 After Mastectomy Staying Active You need to keep your whole body active after your surgery. ?? Take deep breaths and cough. ?? Walk around your room while you are in the hospital. You don?t have to, and shouldn?t stay in bed. ?? Use your arm for normal activities like bathing and eating. But do not lift anything over 5 pounds until your doctor says it is ok. ?? Do not raise your arm straight over your head on the side where you had your surgery. ?? You should wear button-up shirts for easy dressing. o If you wear machine tack puller shirts, wear a larger size than normal. Put the arm on the surgery side in first. Then pull the shirt over your head without lifting that arm. ?? Most people may return to driving once the drains are removed. Arm and Shoulder Exercises ?? Stretching exercises are very important after breast surgery. We will show you how to do them. ?? Don?t do any exercised until all of the drains are removed. ?? After all drains are removed, do the arm-lift exercises 4 times daily. Keep doing this for 4 to 6 weeks after surgery. Taking Care of Your Incision ?? Most women go home wearing a surgi-bra. It keeps the gauze padding (bandage) in place without tape. ?? Your incision is closed on the inside of your skin with stitches that will dissolve in 4-6 weeks. ?? There will be either paper strips called steri-strips or skin glue on the incision. The edges ofthe steri-strips will curl up in about 1 week and will begin falling off in 1-2 weeks. They can be removed at 2 weeks after surgery (usually in your follow up appointment). If skin glue was used thiswill flake off in 1-2 weeks. ?? Do not apply any lotions or creams to your incision for the first 2 weeks after surgery. Gauze Padding (Bandage) ?? You may remove the gauze padding (bandage) on your breast 2 days after surgery. It does not needto be replaced. It is ok if your incision is exposed to the air. ?? The surgi-bra is for your comfort. You don?t need to wear it if it?s not comfortable. Grooming ?? You may shower 2 days after your surgery. ?? No soaking in the tub, hot tubs, or swimming while drains are in place and for 2 weeks after drain removal. ?? Try not to irritate the incision when [...] and may get better over time. Swelling ?? A small amount of swelling in the breast, chest wall, or armpit is normal during the first monthafter surgery. ?? Use pillows to raise your whole arm above your heart to help with swelling in the arm or armpit. Taking Blood or Injections ?? If you had a sentinel lymph node biopsy (where only 1-3 lymph nodes are taken out): You can haveblood draws, injections, and IV?s in the arm on the same side. ?? If you have had an axillary lymph node dissection (where all lymph nodes are removed and you hada drain after the procedure): Avoid having blood draws, injections, and IV?s in the arm on the sidethat the lymph node dissection was performed. If there are no other options, tell the provider about your history of having breast cancer and an [...] part of healing. To help you can: ?? Start exercising more 2 weeks after surgery.Take a mild pain medicine like Tylenol or Ibuprofen. ?? Take warm showers. Also, your incision(s) may feel thick and lumpy. This is a normal part of healing. To help you can: ?? 2 weeks after surgery, you can start rubbing the incision with a lotion that has Vitamin E or pure lanolin in it. You can get these kinds of lotions at a drug store, a discount store, or a health food store. ?? You can also rub Vitamin E on the incision. Prick a Vitamin E capsule with a pin. Squeeze out the oil and apply it to the incision. ?? Don?t use perfumed lotions. They may contain alcohol which will irritate your skin. ?? If you have radiation therapy after surgery, ask your radiation doctor before putting on lotion or oil during your radiation therapy. ?? The scar will slowly soften and become snowboard designer in color over several weeks. * Jojo MitchellIR - Chiquita Banda RN - 12/16/2024 7:48 AM EDT Images from the original note [...] more than half full. What you need: ?? Gauze pads (4x4s) ?? Measuring cup ?? Drain Amounts Chart (at the end of [...] does not seem to beworking properly. 1. Bilingual Speech Language Pathologist the tube near the skin and hold [...] you try this, call your doctor. Reminders ?? Don?t let the tube get kinked. ?? Don?t squeeze the bulb with the plug in place. ?? Fill in your Drain Amounts Chart every time you empty the bulb. ?? Remember to bring your Drain Amounts Chart [...] Amount 01/15/09 7 a.m. 20ml * Jojo On[facility] - Chiquita Banda RN - 12/16/2024 7:47 AM EDT Images from the original note were not included. 1087 Oxycodone Oral Tablet, Immediate Release Brand Names: Oxaydo, Roxicodone What is this medicine? Oxycodone (lq-g-RKV-done) is an opioid pain reliever. It is used to treat moderate to severe pain. What should I tell my health care provider before I take this medicine? They need to know if you have any of these conditions: ?? Chris's disease ?? Brain tumor or head injury ?? Personal or family history of drug abuse or addiction ?? Heart disease ?? Frequent alcohol use ?? Kidney disease ?? Liver disease ?? Lung disease, asthma, or breathing problems ?? Depression, anxiety, or other psychiatric disease ?? Allergy or unusual reaction to oxycodone, acetaminophen or other pain relievers ?? , trying to get , or How should I use this medicine? Take this medicine as prescribed by your doctor, and follow the directions on the prescription label. ?? Take this medicine as prescribed by your doctor. Follow the directions on the prescription label. ?? Do not take this medicine more often than directed. ?? This medicine should be taken with a full glass of water. ?? If it upsets your stomach, you may take it with food. You do not have to take this medicine withfood. ?? Do not crush, cut, chew, lick, wet, soak, or otherwise manipulate a tablet before taking. ?? Do not share this medicine with others. This medicine is only for you. ?? The pharmacy will give you a special medication guide each time you picked edge sewing machine operator this medicine. ?? Overdosage: Taking too much of this medicine can be deadly. Your doctor may prescribe another medicine with this medicine to treat an accidental overdose. If you think you have taken too much of this medicine, call 911 immediately. What if I miss a dose? If you miss a dose, you may take it as soon as you remember. If it is almost time for your next dose, take only that dose. Do not take double or extra doses. What may interact with this medicine? ?? Alcohol ?? Medicines for sleep, depression, anxiety, or psychiatric diseases ?? Seizure medicines like gabapentin, pregabalin, phenytoin, or phenobarbital ?? Other pain medicines like tramadol, hydrocodone, fentanyl, or morphine ?? Muscle relaxers ?? Certain nausea medicines like chlorpromazine or promethazine ?? Cannabinoids like droperidol ?? Certain antibiotics like erythromycin, clarithromycin, rifampin, ritonavir, voriconazole, or ketoconazole ?? Allergy medicines like diphenhydramine This list may not describe all possible interactions. Give your health care provider a list of all the medicines, herbs, non-prescription drugs, or dietary supplements you use. Also tell them if you smoke, drink alcohol, or use illegal drugs. Some items may interact with your medicine. What should I watch for while using this medicine? ?? Before you start taking this medicine, talk with your doctor about how long you should be on this medicine. You should also talk to your doctor about other things you can do to treat pain, including other medicines or non-drug treatments like meditation or acupuncture. While taking this medicine, tell your doctor if your pain does not go away or gets worse or if you have a new or different type of pain. ?? It is possible you could become dependent on this medicine. The risk of dependence increases thelonger you are on the medicine. Dependence is not addiction; however, if you have a personal or family history of addiction, you are at higher risk for becoming addicted to this medicine. Talk to your doctor if you are worried about dependence or addiction. ?? If you take this medicine for a long time and suddenly stop taking this medicine, you may withdraw from this medicine. Withdrawal from this medicine may cause sweating, pain, diarrhea, anxiety, tremor, and other symptoms. Stopping the medicine slowly can reduce withdrawal symptoms. ?? This medicine may cause dizziness or drowsiness, especially when you change doses or first startthe medicine. Do not drive, use machinery, or do anything dangerous until you know how your body reacts to this medicine. ?? This medicine causes constipation. Unless your doctor tells you not to, you should take a stool softener while on this medicine. Tell your doctor if you have not had a bowel movement in 3 or more days while on this medicine. ?? This medicine can also cause dry mouth. Drinking water, chewing gum, or sucking on hard candy can help. It is important to keep regular dentist appointments. What side effects may I notice from receiving this medicine? Side effects that you should report to your doctor or health critical care paramedic as soon as possible: ?? allergic reactions like skin rash, itching or hives, swelling of the face, lips, or tongue ?? breathing problems ?? confusion ?? craving for the medicine or withdrawal symptoms with a missed dose ?? feeling faint or lightheaded, falls ?? trouble passing urine or change in the amount of urine ?? unusually weak or tired Side effects that usually do not require medical attention (report to your doctor or health critical care paramedic if they continue or are bothersome): ?? constipation ?? dry mouth ?? itching ?? nausea, vomiting ?? upset stomach This list may not describe all possible side effects. Call your doctor for medical advice about side effects. You may report side effects to FDA at 8-486-JDT-6959. Where should I keep my medicine? This medicine should be kept in a locked cabinet away from children and protected from theft. This medicine can be abused. Do not share this medicine with anyone. Selling or giving away this medicineis against the law. Store at room temperature (60-80??F) in a dry place that is protected from light. Do not save unused medicine that is no longer needed. Unused medicine should be taken to a proper disposal location. To find a disposal location, visit [employer]/[facility]/[place]. If you cannot take unused medicine to a proper location, you can mix the medicine with coffee grounds or keely litter and dispose of in the normal trash. Your doctor may also give you a special disposal pouch for this medicine. You can also flush the medicine down the toilet. * Jojo Mazariegos - Chiquita Banda RN - 12/16/2024 7:47 AM EDT Images from the original note were not included. 798 Narcan Nasal [place]: Rescue Guide for Opioid Overdose Step 1 Check for signs of overdose. Think someone had opioid overdose? Shout their name and ask Are you OK? Try shaking them by the shoulders or rubbing the middle of the chest. Signs of overdose are: ?? No response or does not wake up. ?? Breathing is slow, odd, or has stopped. ?? Center of the eye (pupil) is very small. If you see any of these signs, go to Step 2. Step 2 Give the medicine. 1. Lay the person flat on the back. 2. Get the Narcan nasal spray. Peel back the tab to remove the bottle. 3. Hold the bottle as shown. 4. Put your free hand behind the person?s neck. Gently lift to tilt the head back. 5. Place the nozzle inside one nostril until your fingers touch the nose. 6. Press the plunger with your thumb to spray. Then remove from the nostril. Step 3 Call 911 for help and watch the person. ?? Call 911 for emergency help. ?? Have the person lay on their side as shown. ?? Look for a response. The person may wake up, breathe normally, or respond to touch or voice. ?? If there is no response for 2-3 minutes after giving the spray, give another - if you have extraspray bottles. In that case, repeat Step 2 then move them back on to their side. ?? You can repeat this every 2-3 minutes until help arrives or the person responds. ?? Use this medicine only if you know or suspect the person has opioid overdose. ?? Do not open the Narcan package until you need to use it. ?? Only for use in the nose. * [facility] - Chiquita Banda RN - 12/16/2024 7:47 AM EDT Images from the original note were not included. [id number] Naloxone Nasal [place] WHY is this medicine prescribed? Prescription and nonprescription (over the counter) naloxone nasal spray is used along with emergency medical treatment to reverse the life-threatening effects of a known or suspected opiate (narcotic) overdose in adults and children. Naloxone nasal spray is in a class of medications called opiate antagonists. It works by blocking the effects of opiates to relieve dangerous symptoms caused by high levels of opiates in the blood. HOW should this medicine be used? Naloxone comes as a solution (liquid) to spray into the nose. It is usually given as needed to treat opiate overdoses. Each naloxone nasal spray contains a single dose of naloxone and should be used only once. You will probably be unable to treat yourself if you experience an opiate overdose. You should makesure that your family members, caregivers, or the people who spend time with you know how to tell if you are experiencing an overdose, how to use naloxone nasal spray, and what to do until emergency m edical help arrives. Your doctor or pharmacist will show you and your family members how to use themedication. You and anyone who may need to give the medication should read the instructions that come with the nasal spray. Ask your pharmacist for the instructions or visit the nickel plater's website to get the instructions. You should keep the nasal spray available at all times in case you experience an opioid overdose. Be aware of the expiration date on your device and replace the spray when this date passes. Naloxone nasal spray may not reverse the effects of certain opiates such as buprenorphine (Belbuca,Buprenex, Butrans, Sublocade) and pentazocine (Talwin) and may require additional naloxone doses with a new nasal spray each time. Symptoms of an opioid overdose include excessive sleepiness, not awakening when spoken to in a loudvoice or when the middle of your chest is rubbed firmly, shallow or stopped breathing, or small pupils (black circles in the center of the eyes). If someone sees that you are experiencing these symptoms, he or she should give you your first naloxone dose and then call 911 immediately. After receiving the naloxone nasal spray, a person should stay with you and watch you closely until emergency medical help arrives. To give the inhaler, follow these steps: ?? Lay the person on their back to give the medication. ?? Remove the naloxone nasal spray from the box. Peel back the tab to open the spray. ?? Do not prime the nasal spray before using it. ?? Hold the naloxone nasal spray with your thumb on the bottom of the plunger and your first and middle fingers on either side of the nozzle. ?? Gently insert the tip of the nozzle into one nostril, until your fingers on either side of the nozzle are against the bottom of the person's nose. Provide support to the back of the person's neck with your hand to allow the head to tilt back. ?? Press the plunger firmly to release the medication. ?? Remove the nasal spray nozzle from the nostril after giving the medication. ?? Turn the person on their side (recovery position) and call for emergency medical assistance immediately after giving the first naloxone dose. ?? If the person does not respond by waking up, to voice or touch, or breathing normally or responds and then relapses, give another dose. If needed, give additional doses (repeating steps 2 through 7) every 2 to 3 minutes in alternate nostrils with a new nasal spray each time until emergency medical assistance arrives. ?? Put the used nasal spray(s) back in the container and out of reach of children until you can safely dispose of it. Ask your pharmacist or doctor for a copy of the nickel plater's information for the patient. Are there OTHER USES for this medicine? This medication may be prescribed for other uses; ask your doctor or pharmacist for more information. What SPECIAL PRECAUTIONS should I follow? Before receiving naloxone nasal spray, ?? tell your doctor and pharmacist if you are allergic to naloxone, any other medications, or any of the ingredients in naloxone nasal spray. Ask your pharmacist for a list of the ingredients. ?? tell your doctor and pharmacist what other prescription and nonprescription medications, vitamins, nutritional supplements, and herbal products you are taking or plan to take. Be sure to tell yourdoctor about all the medications you are taking. ?? tell your doctor if you have or have ever had heart disease. ?? tell your doctor if you are , plan to become , or are . If you receive naloxone nasal spray during , your doctor may need to monitor your unborn baby carefully after you receive the medication. What SIDE EFFECTS can this medicine cause? Some side effects can be serious. If you experience any of these symptoms, get emergency medical treatment: ?? signs of opiate withdrawal such as body aches, diarrhea, fast, pounding, or irregular heartbeat,fever, runny nose, sneezing, sweating, yawning, nausea, vomiting, nervousness, restlessness, irritability, shivering, trembling, stomach cramps, weakness, and the appearance of hair on the skin standing on end ?? seizures ?? loss of consciousness ?? crying more than usual (in babies treated with naloxone nasal spray) ?? stronger than normal reflexes (in babies treated with naloxone nasal spray) Naloxone nasal spray may cause other side effects. Call your doctor if you have any unusual problems while receiving this medication. If you experience a serious side effect, you or your doctor may send a report to the Food and Drug Administration's (FDA) MedWatch Adverse Event Reporting program online (https://www.fda.gov/Safety/MedWatch) or by phone ( ). What should I know about STORAGE and DISPOSAL of this medication? Keep this medication in the container it came in, tightly closed, and out of reach of children. Store it at room temperature and away from light, excess heat and moisture (not in the bathroom). Do not freeze the naloxone nasal spray. Keep all medication out of sight and reach of children as many containers are not child-resistant. Always lock safety caps. Place the medication in a safe location - one that is up and away and out of their sight and reach. https://www.upandaway.org Dispose of unneeded medications in a way so that pets, children, and other people cannot take them.Do not flush this medication down the toilet. Use a medicine take-back program. Talk to your pharmacist about take-back programs in your community. Visit the FDA's Safe Disposal of Medicines website h ttps://goo.gl/c4Rm4p for more information. What OTHER INFORMATION should I know? Keep a written list of all of the prescription and nonprescription (pcxa-ull-nvcebjo) medicines, vitamins, minerals, and dietary supplements you are taking. Bring this list with you each time you visit a doctor or if you are admitted to the hospital. You should carry the list with you in case of chase rgencies. Brand Name(s): Kloxxado??, Narcan??, Rezenopy??; also available generically This report on medications is for your information only, and is not considered individual patient advice. Because of the changing nature of drug information, please consult your physician or pharmacist about specific clinical use. The [employer] represents that the information provided hereunder was formulated with a reasonable standard of care, and in conformity with professional standards in the field. The [employer] makes no representations or warranties, express or implied, including, but not limited to, any implied warranty of merchantability and/or fitness for a particular purpose, with respect to such information and specifically disclaims all such warranties. Users are advised that decisions regarding drug therapy are complex medical decisions requiring the independent, informed decision of an appropriate health critical care paramedic, and the information is provided for informational purposes only. The entire monograph for a drug should be reviewed for a thorough understanding of the drug's actions, uses and side effects. The [employer] does not endorse or recommend the use of any drug.The information is not a substitute for medical care. AHFS?? Patient Medication Information?. ?? Copyright, 2023. The [employer]??, [address], [address], [place], [place]. All Rights Reserved. Duplication for commercial use must be authorized by [facility]. Selected Revisions: December 27, 2023. AHFS?? Patient Medication Information?. ?? Copyright, 2024 * [facility] - Chiquita Banda RN - 12/16/2024 7:47 AM EDT Images from the original note were not included. [id number] Cephalexin WHY is this medicine prescribed? Cephalexin is used to treat certain infections caused by bacteria such as pneumonia and other respiratory tract infections; and infections of the bone, skin, ears, , genital, and urinary tract. Cephalexin is in a class of medications called cephalosporin antibiotics. It works by killing bacteria. Antibiotics such as cephalexin will not work for colds, flu, or other viral infections. Using antibiotics when they are not needed increases your risk of getting an infection later that resists antibiotic treatment. HOW should this medicine be used? Cephalexin comes as a capsule, tablet, and suspension (liquid) to take by mouth. It is usually taken with or without food every 6 or 12 hours for 7 to 14 days, depending on the condition being treated. Take cephalexin at around the same times every day. Follow the directions on your prescription label carefully, and ask your doctor or pharmacist to explain any part you do not understand. Take cephalexin exactly as directed. Do not take more or less of it or take it more often than prescribed byyour doctor. Shake the liquid well before each use to mix the medication evenly. You should begin to feel better during the first few days of treatment with cephalexin. If your symptoms do not improve or get worse, call your doctor. Continue to take cephalexin until you finish the prescription even if you feel better. If you stop taking cephalexin too soon or skip doses, your infection may not be completely treated and the bacteria may become resistant to antibiotics. Are there OTHER USES for this medicine? Cephalexin is also sometimes used for certain penicillin allergic patients who have a heart condition and are having a dental or upper respiratory tract (nose, mouth, throat, voice box) procedure, inorder to prevent them from developing a heart valve infection. This medication may be prescribed for other uses; ask your doctor or pharmacist for more information. What SPECIAL PRECAUTIONS should I follow? Before taking cephalexin, ?? tell your doctor and pharmacist if you are allergic to cephalexin; other cephalosporin antibiotic such as cefaclor, cefadroxil cefazolin (Ancef, Kefzol), cefdinir, cefditoren (Spectracef), cefepime (Maxipime), cefixime (Suprax), cefotaxime (Claforan), cefotetan, cefoxitin (Mefoxin), cefpodoxime,cefprozil, ceftaroline (Teflaro), ceftazidime (Fortaz, Tazicef, in Avycaz), ceftibuten (Cedax), ceftriaxone (Rocephin), and cefuroxime (Zinacef); penicillin antibiotics; or any other medications. Also tell your doctor if you are allergic to any of the ingredients in cephalexin capsules, tablets, orsuspension.Ask your pharmacist for a list of the ingredients. ?? tell your doctor and pharmacist what prescription and nonprescription medications, vitamins, nutritional supplements, and herbal products you are taking or plan to take while taking cephalexin. Your doctor may need to change the doses of your medications or monitor you carefully for side effects. ?? you should know that cephalexin may decrease the effectiveness of hormonal contraceptives (birthcontrol pills, patches, rings, and injections). You will need to use another method of contraception to prevent while taking cephalexin. Talk to your doctor about other ways to prevent while you are taking this medication. ?? tell your doctor if you have or have ever had any kind of allergies, gastrointestinal disease (GI; affecting the stomach or intestines), especially colitis (condition that causes swelling in the lining of the colon [large intestine]), or kidney or liver disease. ?? tell your doctor if you are , plan to become , or are breast- feeding. If you become while taking cephalexin, call your doctor. What SPECIAL DIETARY instructions should I follow? Unless your doctor tells you otherwise, continue your normal diet. What should I do IF I FORGET to take a dose? Take the missed dose as soon as you remember it. However, if it is almost time for the next dose, skip the missed dose and continue your regular dosing schedule. Do not take a double dose to make up for a missed one. What SIDE EFFECTS can this medicine cause? Some side effects can be serious. If you experience any of the following symptoms, call your doctorimmediately or get emergency medical treatment: ?? watery or bloody stools, stomach cramps, or fever during treatment or for up to two or more months after stopping treatment ?? rash ?? itching ?? hives ?? swelling of the face, throat, tongue, lips, and eyes ?? difficulty breathing or swallowing ?? wheezing ?? a return of fever, sore throat, chills, or other signs of infection ?? hallucinations (seeing things or hearing voices that do not exist) If you experience a serious side effect, you or your doctor may send a report to the Food and Drug Administration's (FDA) MedWatch Adverse Event Reporting program online (https://www.fda.gov/Safety/MedWatch) or by phone ( ). What should I know about STORAGE and DISPOSAL of this medication? Keep this medication in the container it came in, tightly closed, and out of reach of children. Store the capsules and tablets at room temperature and away from excess heat and moisture (not in the bathroom). Keep liquid medicine in the refrigerator, tightly closed, and dispose of any unused medication after 14 days. . Dispose of unneeded medications in a way so that pets, children, and other people cannot take them.Do not flush this medication down the toilet. Use a medicine take-back program. Talk to your pharmacist about take-back programs in your community. Visit the FDA's Safe Disposal of Medicines website h ttps://goo.gl/c4Rm4p for more information. Keep all medication out of sight and reach of children as many containers are not child-resistant. Always lock safety caps. Place the medication in a safe location - one that is up and away and out of their sight and reach. https://www.upandaway.org What should I do in case of OVERDOSE? In case of overdose, call the poison control helpline at . Information is also available online at https://www.poisonhelp.org/help. If the victim has collapsed, had a seizure, has trouble breathing, or can't be awakened, immediately call emergency services at 911. Symptoms of overdose may include: ?? nausea ?? vomiting ?? diarrhea ?? pink, red, or dark brown urine ?? stomach pain What OTHER INFORMATION should I know? Keep all appointments with your doctor and the laboratory. Your doctor may order certain lab tests to check your response to cephalexin. Before having any laboratory test, tell your doctor and the laboratory personnel that you are taking cephalexin. If you are diabetic and test your urine for sugar, use Clinistix or TesTape (not Clinitest) to testyour urine while taking this medication. Do not let anyone else take your medication. Your prescription is probably not refillable. Keep a written list of all of the prescription and nonprescription (oktv-oez-iwcuoct) medicines, vitamins, minerals, and dietary supplements you are taking. Bring this list with you each time you visit a doctor or if you are admitted to the hospital. You should carry the list with you in case of chase rgencies. Brand Name(s): Keflet?? Tablets??, Keflex??, Keftab?? Tablets??, Panixine?? Disperdose??; also available generically ?? This branded product is no longer on the market. Generic alternatives may be available. This report on medications is for your information only, and is not considered individual patient advice. Because of the changing nature of drug information, please consult your physician or pharmacist about specific clinical use. The [employer] represents that the information provided hereunder was formulated with a reasonable standard of care, and in conformity with professional standards in the field. The [employer] makes no representations or warranties, express or implied, including, but not limited to, any implied warranty of merchantability and/or fitness for a particular purpose, with respect to such information and specifically disclaims all such warranties. Users are advised that decisions regarding drug therapy are complex medical decisions requiring the independent, informed decision of an appropriate health critical care paramedic, and the information is provided for informational purposes only. The entire monograph for a drug should be reviewed for a thorough understanding of the drug's actions, uses and side effects. The [employer] does not endorse or recommend the use of any drug.The information is not a substitute for medical care. AHFS?? Patient Medication Information?. ?? Copyright, 2023. The [employer]??, [address], [address], [place], [place]. All Rights Reserved. Duplication for commercial use must be authorized by [facility]. Selected Revisions: November 22, 2015. AHFS?? Patient Medication Information?. ?? Copyright, 2024 * [facility] - Chiquita Banda RN - 12/16/2024 7:47 AM EDT Images from the original note were not included. [id number] Ondansetron WHY is this medicine prescribed? Ondansetron is used to prevent nausea and vomiting caused by cancer chemotherapy, radiation therapy, and surgery. Ondansetron is in a class of medications called serotonin 5-HT3 receptor antagonists.It works by blocking the action of serotonin, a natural substance that may cause nausea and vomiting. HOW should this medicine be used? Ondansetron comes as a tablet, a rapidly disintegrating (dissolving) tablet, film, and an oral solution (liquid) to take by mouth. The first dose of ondansetron is usually taken 30 minutes before thestart of chemotherapy, 1 to 2 hours before the start of radiation therapy, or 1 hour before surgery. Additional doses are sometimes taken one to three times a day during chemotherapy or radiation therapy and for 1 to 2 days after the end of treatment. Follow the directions on your prescription label carefully, and ask your doctor or pharmacist to explain any part you do not understand. Take ondans etron exactly as directed. Do not take more or less of it or take it more often than prescribed by your doctor. Do not chew the film. If you are taking the rapidly disintegrating tablet, remove the tablet from the package just beforeyou take your dose. To open the package, do not try to push the tablet through the foil backing of the blister. Instead, use dry hands to peel back the foil backing. Gently remove the tablet and immediately place the tablet on the top of your tongue. The tablet will dissolve in a few seconds and can be swallowed with saliva. Are there OTHER USES for this medicine? This medication may be prescribed for other uses. Ask your doctor or pharmacist for more information. What SPECIAL PRECAUTIONS should I follow? Before taking ondansetron, ?? tell your doctor and pharmacist if you are allergic to ondansetron, alosetron (Lotronex), dolasetron (Anzemet), granisetron (Kytril), palonosetron (Aloxi, in Akynzeo), any other medications, or any of the ingredients in ondansetron products. Ask your pharmacist for a list of the ingredients. ?? tell your doctor if you are receiving apomorphine (Apokyn). Your doctor will probably tell you not to take ondansetron if you are receiving this medication. ?? some medications should not be taken with ondansetron. Other medications may cause dosing changes or extra monitoring when taken with ondansetron. Make sure you have discussed any medications you are currently taking or plan to take before starting ondansetron with your doctor and pharmacist. Before starting, stopping, or changing any medications while taking ondansetron, please get the adviceof your doctor or pharmacist. ?? tell your doctor if you or anyone in your family has or has ever had long QT syndrome (conditionthat increases the risk of developing an irregular heartbeat that may cause fainting or sudden ), or another type of irregular heart beat or heart rhythm problem, or if you have or have ever hadlow blood levels of magnesium or potassium in your blood, heart failure (HF; condition in which the heart cannot pump enough blood to other parts of the body), or liver disease. ?? tell your doctor if you are , plan to become , or are breast- feeding. If you become while taking ondansetron, call your doctor. ?? if you have phenylketonuria (PKU, an inherited condition in which a special diet must be followed to prevent damage to your brain that can cause severe intellectual disability), you should know that the orally disintegrating tablets contain aspartame that forms phenylalanine. What SPECIAL DIETARY instructions should I follow? Unless your doctor tells you otherwise, continue your usual diet. What should I do IF I FORGET to take a dose? Take the missed dose as soon as you remember it. However, if it is almost time for the next dose, skip the missed dose and continue your regular dosing schedule. Do not take a double dose to make up for a missed one. What SIDE EFFECTS can this medicine cause? Some side effects can be serious. If you experience any of the following symptoms, call your doctorimmediately or seek emergency medical treatment: ?? blurred vision or vision loss ?? rash ?? hives ?? itching ?? swelling of the eyes, face, lips, tongue, throat, hands, feet, ankles, or lower legs ?? hoarseness ?? difficulty breathing or swallowing ?? chest pain ?? shortness of breath ?? dizziness, light-headedness, or fainting ?? fast, slow or irregular heartbeat ?? agitation ?? hallucinations (seeing things or hearing voices that do not exist) ?? fever ?? excessive sweating ?? confusion ?? nausea, vomiting, or diarrhea ?? loss of coordination ?? stiff or twitching muscles ?? seizures ?? coma (loss of consciousness) Ondansetron may cause other side effects. Call your doctor if you have any unusual problems while you are taking this medication. What should I know about STORAGE and DISPOSAL of this medication? Keep this medication in the container it came in, tightly closed, and out of reach of children. Store the tablets and rapidly disintegrating tablets away from light, at room temperature or in the refrigerator. Store the solution in the bottle upright at room temperature and away from light, excess heat, and moisture (not in the bathroom). Keep all medication out of sight and reach of children as many containers are not child-resistant. Always lock safety caps. Place the medication in a safe location - one that is up and away and out of their sight and reach. https://www.upandaway.org Dispose of unneeded medications in a way so that pets, children, and other people cannot take them.Do not flush this medication down the toilet. Use a medicine take-back program. Talk to your pharmacist about take-back programs in your community. Visit the FDA's Safe Disposal of Medicines website h ttps://goo.gl/c4Rm4p for more information. What should I do in case of OVERDOSE? In case of overdose, call the poison control helpline at . Information is also available online at https://www.poisonhelp.org/help. If the victim has collapsed, had a seizure, has trouble breathing, or can't be awakened, immediately call emergency services at 241. Symptoms of overdose may include: ?? sudden loss of vision for a short time ?? dizziness or lightheadedness ?? fainting ?? constipation ?? irregular heart beat What OTHER INFORMATION should I know? Keep all appointments with your doctor. Do not let anyone else take your medication. Ask your pharmacist any questions you have about refilling your prescription. Keep a written list of all of the prescription and nonprescription (ycgd-qnz-focbbjx) medicines, vitamins, minerals, and dietary supplements you are taking. Bring this list with you each time you visit a doctor or if you are admitted to the hospital. You should carry the list with you in case of chase rgencies. Brand Name(s): Zofran??, Zofran?? ODT, Zuplenz??; also available generically This report on medications is for your information only, and is not considered individual patient advice. Because of the changing nature of drug information, please consult your physician or pharmacist about specific clinical use. The [employer] represents that the information provided hereunder was formulated with a reasonable standard of care, and in conformity with professional standards in the field. The [employer] makes no representations or warranties, express or implied, including, but not limited to, any implied warranty of merchantability and/or fitness for a particular purpose, with respect to such information and specifically disclaims all such warranties. Users are advised that decisions regarding drug therapy are complex medical decisions requiring the independent, informed decision of an appropriate health critical care paramedic, and the information is provided for informational purposes only. The entire monograph for a drug should be reviewed for a thorough understanding of the drug's actions, uses and side effects. The [employer] does not endorse or recommend the use of any drug.The information is not a substitute for medical care. AHFS?? Patient Medication Information?. ?? Copyright, 2023. [employer]??, [address], [address], [place], [place]. All Rights Reserved. Duplication for commercial use must be authorized by [facility]. Selected Revisions: December 27, 2023. AHFS?? Patient Medication Information?. ?? Copyright, 2024 * [facility] - Chiquita Banda RN - 12/16/2024 7:47 AM EDT Images from the original note were not included. [id number] Methocarbamol WHY is this medicine prescribed? Methocarbamol is used with rest, physical therapy, and other measures to relax muscles and relieve pain and discomfort caused by strains, sprains, and other muscle injuries. Methocarbamol is in a class of medications called muscle relaxants. It works by slowing activity in the nervous system to allow the body to relax HOW should this medicine be used? Methocarbamol comes as a tablet to take by mouth. It usually is taken four times a day at first, then it may be changed to three to six times a day. Follow the directions on your prescription label carefully, and ask your doctor or pharmacist to explain any part you do not understand. Take methocarbamol exactly as directed. Do not take more or less of it or take it more often than prescribed by your doctor. Are there OTHER USES for this medicine? This medication may be prescribed for other uses. Ask your doctor or pharmacist for more information. What SPECIAL PRECAUTIONS should I follow? Before taking methocarbamol, ?? tell your doctor and pharmacist if you are allergic to methocarbamol, any other medications or any of the ingredients in methocarbamol tablets. Ask your doctor or pharmacist for a list of the ingredients. ?? tell your doctor and pharmacist what prescription and nonprescription medications, vitamins, nutritional supplements, and herbal products you are taking or plan to take while taking methocarbamol.Your doctor may need to change the doses of your medications or monitor you carefully for side effects. ?? tell your doctor if you are , plan to become , or are breast- feeding. If you become while taking methocarbamol, call your doctor. ?? talk to your doctor about the risks and benefits of taking methocarbamol if you are 65 years of age or older. Older adults should not usually take methocarbamol because it is not as safe or as effective as other medications that can be used to treat the same condition. ?? you should know that this medication may make you drowsy. Do not drive a car or operate machinery until you know how methocarbamol affects you. ?? talk to your doctor about the safe use of alcohol during your treatment with this medication. Alcohol can make the side effects of methocarbamol worse. What SPECIAL DIETARY instructions should I follow? Unless your doctor tells you otherwise, continue your normal diet. What should I do IF I FORGET to take a dose? Take the missed dose as soon as you remember it. However, if it is almost time for the next dose, skip the missed dose and continue your regular dosing schedule. Do not take a double dose to make up for a missed one. What SIDE EFFECTS can this medicine cause? If you experience either of the following symptoms, call your doctor immediately: ?? rash ?? itching Methocarbamol may cause other side effects. Call your doctor if you have any unusual problems whileyou are taking this medication. If you experience a serious side effect, you or your doctor may send a report to the Food and Drug Administration's (FDA) MedWatch Adverse Event Reporting program online (https://www.fda.gov/Safety/MedWatch) or by phone ( ). What should I know about STORAGE and DISPOSAL of this medication? Keep this medication in the container it came in, tightly closed, and out of reach of children. Store it at room temperature and away from excess heat and moisture (not in the bathroom). Dispose of unneeded medications in a way so that pets, children, and other people cannot take them.Do not flush this medication down the toilet. Use a medicine take-back program. Talk to your pharmacist about take-back programs in your community. Visit the FDA's Safe Disposal of Medicines website h ttps://goo.gl/c4Rm4p for more information. Keep all medication out of sight and reach of children as many containers are not child-resistant. Always lock safety caps. Place the medication in a safe location - one that is up and away and out of their sight and reach. https://www.upandaway.org What should I do in case of OVERDOSE? In case of overdose, call the poison control helpline at . Information is also available online at https://www.poisonhelp.org/help. If the victim has collapsed, had a seizure, has trouble breathing, or can't be awakened, immediately call emergency services at 940. What OTHER INFORMATION should I know? Keep all appointments with your doctor. Do not let anyone else take your medication. Ask your pharmacist any questions you have about refilling your prescription. Keep a written list of all of the prescription and nonprescription (zxcj-xdc-goawykv) medicines, vitamins, minerals, and dietary supplements you are taking. Bring this list with you each time you visit a doctor or if you are admitted to the hospital. You should carry the list with you in case of chase rgencies. Brand Name(s): Robaxin??; also available generically This report on medications is for your information only, and is not considered individual patient advice. Because of the changing nature of drug information, please consult your physician or pharmacist about specific clinical use. The [employer] represents that the information provided hereunder was formulated with a reasonable standard of care, and in conformity with professional standards in the field. The [employer] makes no representations or warranties, express or implied, including, but not limited to, any implied warranty of merchantability and/or fitness for a particular purpose, with respect to such information and specifically disclaims all such warranties. Users are advised that decisions regarding drug therapy are complex medical decisions requiring the independent, informed decision of an appropriate health critical care paramedic, and the information is provided for informational purposes only. The entire monograph for a drug should be reviewed for a thorough understanding of the drug's actions, uses and side effects. The [employer] does not endorse or recommend the use of any drug.The information is not a substitute for medical care. AHFS?? Patient Medication Information?. ?? Copyright, 2023. The [employer]??, [address], [address], [place], [place]. All Rights Reserved. Duplication for commercial use must be authorized by [facility]. Selected Revisions: January 21, 2017. AHFS?? Patient Medication Information?. ?? Copyright, 2024 * Discharge Instr - Other Orders - Chiquita Banda RN - 12/16/2024 7:47 AM EDT If you need to contact your doctors after hours, please call [phone] and ask for the doctors conveyor man for [employer]. * Hospital Course - Dang Golden MD - 12/16/2024 5:49 AM EDT Ms. Bar is a 34yo F with high lifetime risk of breast cancer who was admitted on 11/16/24 following bilateral skin sparing mastectomy and tissue leasing associate placement. She recovered well from surgery and has good pain control, has appropriate drain output, tolerating a diet, ambulating, and is voiding. * Discharge Summary - Dang Golden MD - 12/16/2024 5:49 AM EDT Hospitalization Admit Date/Time: 12/15/2024 5:28 AM Admitting Attending: Chely Woodall Discharge Date: 12/16/24 Discharge Attending Physician: Chely Woodall MD PCP name and Address: Cinthya Cali PA [address] [facility] [address] Referring provider name and address: Chetna Chen, [place], [facility], [place] [address] [address] Chief Concern, Brief History of Present Illness, and Hospital Course Ms. Bar is a 34yo F with high lifetime risk of breast cancer who was admitted on 11/16/24 following bilateral skin sparing mastectomy and tissue leasing associate placement. She recovered well from surgery and has good pain control, has appropriate drain output, tolerating a diet, ambulating, and is voiding. Surgeries and Procedures Bilateral prophy skin sparing mastectomy/recon (Bilateral), INSERTION, IMPLANT OR TISSUE CRATER AND PACKER, BREAST, FOR RECONSTRUCTION (Bilateral) Medication List . albuterol 108 (90 Base) MCG/ACT inhaler Inhale 2 puffs every 4 hours as needed for wheezing. clonazePAM 0.5 MG tablet Commonly known as: KlonoPIN Take 1 tablet by mouth daily. fexofenadine 180 MG tablet Commonly known as: Luzma Take 1 tablet (180 mg) by mouth in the morning. FLONASE ALLERGY RELIEF NA Inhale 1 spray in the morning. ipratropium-albuterol 0.5-2.5 mg/3 mL nebulizer solution Commonly known as: Duo-Neb Take by nebulization as needed. levothyroxine 50 MCG tablet Commonly known as: Synthroid, Levoxyl Take 1 tablet by mouth daily. montelukast 10 MG tablet Commonly known as: Singulair Take 1 tablet by mouth nightly. omeprazole [address] capsule Commonly known as: PriLOSEC Take 1 capsule by mouth daily. sertraline 50 MG tablet Commonly known as: Zoloft Take 1.5 tablets by mouth daily. Zofran 4 MG tablet Generic drug: ondansetron Discharge Diagnosis Medical Problems Active and Resolved Hospital Problems Hospital * (Principal) At high risk for breast cancer Post Discharge Instructions Follow-up Please follow-up with Inge López on 12/29/24 at 11:30am. Wound care - You may have a surgical bra on when you wake up from surgery. Please wear your surgical bra at all times until your follow up. It can be worn during sleeping for comfort, but should not be worn in the shower. - Over your incision may be steri-strips and/or surgical glue. The Steri-strips or surgical glue will begin to flake off in about one week. You can leave your incision(s) uncovered unless you have drainage. Some blood staining of the dressing can be normal, as is bruising at the site. - You may develop a harmless pocket of fluid (called a seroma ) at the surgical site(s), which maycause a sloshing sound or sensation. This is normal and will eventually disappear. If you developa seroma that is large or uncomfortable, call the office to discuss. - You may have a surgical drain to collect extra fluid from the surgical site. Please refer to additional instructions on how to care for the drain. Showering - You may shower as you normally do starting two days after surgery. The dressings are waterproof. Let soapy water run over the incision and avoid vigorous scrubbing of the surgical site. - No soaking in baths, hot tubs or public areas such as lakes or pools until cleared by your surgeon. Eating and drinking - You may return to eating your regular diet. Because you received anesthesia, we recommend you start with drinking clear liquids and a light meal to avoid getting an upset stomach. - Drink plenty of liquids to avoid constipation. If necessary you may take an qjxs-swx-jstirmw medication (such as MiraLax or Colace). Call the office if you have not had a bowel movement in more than 2 days. Activity - Minimize lifting your arms. No lifting greater than >10lbs or any strenuous activity - Must walk when discharged home - Please do not drive for at least 24 hours as you received anesthesia. If you are taking prescriptions pain medicine that makes you drowsy, please do not attempt to drive. Pain - You may experience tenderness or soreness at the surgical site(s) which is to be expected. You may also experience a sore throat or a headache which is temporary. - If narcotic pain medication was prescribed to you, please take only only as prescribed. Refills cannot be provided after regular business hours. - For pain control, you can take Tylenol and Ibuprofen, unless prohibited by another health care provider. - You may apply ice packs to the surgical site(s) for comfort.s or on weekends. - Please take medications as prescribed. If you have questions or concerns, please call [phone] during regular business hours or [phone] at any other time (after hours, weekends, and/or holidays) and ask for the GOLD TELEGRAPHER AGENT . Please call the above number if you experience: - a fever 100.4 or higher - unrelieved or increasing pain at your surgical site - significant redness of your incision(s) or surrounding area - concerning drainage from the incision(s) Outpatient Follow-Up Future Appointments Date Time Provider Department Center 12/29/2024 11:30 AM Inge López APRN [facility] 01/14/2025 11:00 AM [place] [facility] 01/14/2025 2:00 PM Inge López APRN [facility] Test Results Pending At Discharge Pending Labs Order Current Status Surgical Pathology Exam In process Pertinent Physical Exam At Time of Discharge Physical Exam Constitutional: General: She is not in acute distress. Appearance: Normal appearance. HENT: Head: Normocephalic and atraumatic. Mouth/Throat: Mouth: Mucous membranes are moist. Eyes: Conjunctiva/sclera: Conjunctivae normal. Cardiovascular: Rate and Rhythm: Normal rate. Pulmonary: Effort: Pulmonary effort is normal. No respiratory distress. Chest: Comments: Bilateral breast incisions c/d/I with no surrounding erythema or drainage. Drains serosanguinous Musculoskeletal: Cervical back: Neck supple. Skin: General: Skin is warm and dry. Neurological: General: No focal deficit present. Mental Status: She is alert. Psychiatric: Mood and Affect: Mood normal. Behavior: Behavior normal. Discharge Disposition/Condition Disposition: Home Condition: Stable (s/sx potential problems absent or manageable) I spent < 30 minutes of patient care and instruction time in preparation for this discharge. Cosigned by Chely Woodall MD at 12/16/2024 10:50 AM EDT Associated attestation - Chely Woodall MD - 12/16/2024 10:50 AM EDT Images from the original note were not included. Attending Attestation: I personally saw and evaluated the patient with the resident. I attest to being involved in providing substantive time in patient care. I discussed the case with them and agree with the findings as documented. The discussion and plan reflect my edits and medical decision making. Dr. Chely Woodall MD Covered Button Maker of Surgical Oncology [facility] * Care Plan - Ashish Mcclendon - 12/16/2024 3:18 AM EDT Problem: Adult Inpatient Plan of Care Goal: Plan of Care Review Outcome: Ongoing, Progressing Flowsheets (Taken 12/15/2024 184 by Esme Pulido RN) Plan of Care Reviewed With: patient spouse Goal: Patient-Specific Goal (Individualized) Outcome: Ongoing, Progressing Flowsheets (Taken 12/16/2024 0326) Patient/Family-Specific Goals (Include Timeframe): discharging as soon as possible Individualized Care Needs: pain control Goal: Optimal Comfort and Wellbeing Outcome: Ongoing, Progressing * Post-Procedure Note - Charline Ratliff DO - 12/15/2024 11:39 PM EDT Surgery Post-Operative Check Note Shelley Bar is a 34 y.o. female POD#0 from Procedure(s) (LRB): Bilateral prophy skin sparing mastectomy/recon (Bilateral) INSERTION, IMPLANT OR TISSUE CRATER AND PACKER, BREAST, FOR RECONSTRUCTION (Bilateral). S: Pt is doing well and resting in bed. She reports improvement in her pain, rates it 5/10 down from 10/10 when she arrived on the floor. She has not had any N/V, chest pain, or SOB. Has been able tourinate twice. O: Blood pressure 117/80, pulse 101, temperature 36.7 ??C (98 ??F), temperature source Oral, resp. rate 17, height 1.676 m (5' 6 ), weight 87.1 kg (192 lb), last menstrual period 11/23/2024, SpO2 95%. Physical Exam: GEN: NAD, laying comfortably in bed CV: RRR, appears well perfused Pulm: equal chest rise bilaterally, breathing comfortably on room air Chest: binder in place Abd: soft, non tender to palpation, non-distended Ext: No LE swelling/edema, SCDs in place Neuro: No focal deficits Pulses: Radial: 2+ b/l DP: 2+ b/l PT: 2+ b/l Drains: L & R chest, sanguinous output A/P: Shelley Bar is a 34 y.o. female POD#0 from Procedure(s) (LRB): Bilateral prophy skin sparing mastectomy/recon (Bilateral) INSERTION, IMPLANT OR TISSUE CRATER AND PACKER, BREAST, FOR RECONSTRUCTION (Bilateral). Currently stable on the floor and recovering well post-operatively. -Adult diet Diet texture: Regular -pain: 5/10 -nausea: denies -ppx: SCD, SQH, IS -Patient advised to call with any concerns -Will continue to monitor Charline Ratliff DO PGY 1 12/15/2024, 11:40 PM * Anesthesia PACU Signout - Ubaldo Barraza DO - 12/15/2024 5:51 PM EDT Patient: Shelley Bar Anesthesia Type: general Vitals Value Taken Time BP 126/89 12/15/24 17:45 Temp 37.3 ??C (99.1 ??F) 12/15/24 15:35 Pulse 109 12/15/24 17:50 Resp 18 12/15/24 17:50 SpO2 95 % 12/15/24 17:50 Vitals shown include unfiled device data. Anesthesia PACU Signout Patient location during evaluation: PACU Patient participation: complete - patient participated Level of consciousness: baseline and awake Pain management: adequate (pain score 0-3) Airway patency: natural airway Hydration status: acceptable PONV: none Cardiovascular status: acceptable and hemodynamically stable Respiratory status: acceptable, spontaneous ventilation, unassisted and nonlabored ventilation Discharge Disposition: admit to inpatient unit Cosigned by Mukul Marcos MD at 12/15/2024 7:36 PM EDT Associated attestation - Mukul Marcos MD - 12/15/2024 7:36 PM EDT I saw and evaluated the patient with the resident/fellow. I discussed the case with the resident/fellow and agree with the findings and plan as documented. * Care Plan - Esme Pulido RN - 12/15/2024 5:51 PM EDT Problem: Postsedation Recovery Goal: Recovery from Sedation Effects 12/15/2024 1751 by Esme Pulido RN Outcome: Met 12/15/2024 1546 by Esme Pulido RN Outcome: Ongoing, Progressing Intervention: Support Safe Sedation Recovery 12/15/2024 1751 by Esme Pulido RN Flowsheets (Taken 12/15/2024 1535) Stabilization Measures: airway opened Airway/Ventilation Management: airway patency maintained calming measures promoted oxygen therapy provided Reorientation Measures: reorientation provided Note: Pt appropriate for discharge to floor 12/15/2024 1546 by Esme Pulido RN Flowsheets (Taken 12/15/2024 1535) Stabilization Measures: airway opened Airway/Ventilation Management: airway patency maintained calming measures promoted oxygen therapy provided Reorientation Measures: reorientation provided Note: Pt arrived to PACU with oral airway in place and face tent O2, pt sleeping comfortably, VSS * Care Plan - Esme Pulido RN - 12/15/2024 3:35 PM EDT Problem: Postsedation Recovery Goal: Recovery from Sedation Effects Outcome: Ongoing, Progressing Intervention: Support Safe Sedation Recovery Flowsheets (Taken 12/15/2024 1535) Stabilization Measures: airway opened Airway/Ventilation Management: airway patency maintained calming measures promoted oxygen therapy provided Reorientation Measures: reorientation provided Note: Pt arrived to PACU with oral airway in place and face tent O2, pt sleeping comfortably, VSS * Op Note - Chely Woodall MD - 12/15/2024 9:03 AM EDT Operative Note Date: 12/15/24 Location: [facility] Name: Shelley Bar, : 1990, Diagnoses: Pre-op Diagnosis At high risk for breast cancer Post-op Diagnosis At high risk for breast cancer Procedure(s): Bilateral skin sparing mastectomy Attending Surgeon(s): Panel 1: * Chely Woodall - Primary Panel 2: * Jose Hyman - Primary Live Study Manager(s): Panel 1: * Dang Golden MD - Resident - Assisting Anesthesia: General ASA: II Blood Administration: Blood Product Administration History None Estimated Blood Loss: 500 mL Drains: Closed/Suction Drain 1 Inferior;Right Breast Bulb 19 Fr. (Active) Closed/Suction Drain 2 Inferior;Left Breast Bulb 19 Fr. (Active) Urethral Catheter Temperature probe;Non-latex 16 Fr. (Active) Implants Type Name Action Serial No. DERMACELL CONTOUR MICROPERF 8X16 - [id number] - [id number] Implanted [id number] DERMACELL CONTOUR MICROPERF 8X16 - [id number] - [id number] Implanted [id number] GRAFT NERVE AVANCE 70MM 2-3MM - [id number] Implanted GRAFT NERVE AVANCE 70MM 2-3MM - [id number] Implanted Tissue Meal Room Hand CRATER AND PACKER BREAST ALLOX2 SMOOTH FULL HT 360-430CC - [id number] - [id number] Implanted [id number] CRATER AND PACKER BREAST ALLOX2 SMOOTH FULL HT 360-430CC - [id number] - [id number] Implanted [id number] Specimen: Specimens ID Source Frozen? 1 Breast, Left No Description: Left Breast Total Mastectomy- short stitch superior; long stitch lateral 2 Breast, Right No Description: Right Breast Total Mastectomy- short stitch superior; long stitch lateral 3 Breast, Right No Description: Additional Right Breast Tissue 4 Breast, Left No Description: Additional Left Breast Tissue Findings: No unexpected intraoperative findings. Indications: Shelley Bar is an 34 y.o. female who is having surgery for At high risk for breast cancer. Narrative: After informed consent was obtained, the patient was brought to the operating room and placed on the operating room table in the supine position. The patient was prepped and draped in sterile fashionand timeout was completed. Attention was turned to the right breast. A skin sparing incision was made using a #15 blade. Flapswere created using electrocautery, and the breast was lifted off the chest wall from superior to inferior with the pectoralis fascia using electrocautery. The specimen was marked with a short suture at the superior aspect and a long suture on the lateral aspect. The specimen was sent off the field and to pathology fresh for permanent. Attention was turned to the contralateral breast. A skin sparing incision was made using a #15 blade. Flaps were created using electrocautery, and the breast was lifted off the chest wall from superior to inferior with the pectoralis fascia using electrocautery. The specimen was marked with a shortsuture at the superior aspect and a long suture on the lateral aspect. The specimen was sent off the field and to pathology fresh for permanent. Electrocautery was used to achieve hemostasis and the sites were irrigated. Once hemostasis was achieved, the plastic surgical team was called and began the reconstructive portion of the operation. The patient tolerated the procedure well and remained on table for reconstruction. Complications: None; patient tolerated the procedure well. Submitted by: Chely Woodall MD - 12/15/2024 This procedure was not performed to treat cancer * Interval H&P Note - Dang Golden MD - 12/15/2024 6:43 AM EDT H&P reviewed. The patient was examined and there are no changes to the H&P. Source Note - Inge López APRN - 12/01/2024 11:30 [...] any blood thinners. 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 She lives in [place], [place] with her andkids. Patient stopped smoking in March of 2024 [...] documented travel since 10/31/24 Allergies Bromfed dm [aghrejrbc-xbyppcon-ls] Medications Current Medications[1] Objective Review of Systems [...] No current facility-administered medications for this visit. * PAT Phone Note - Charline Noonan RN - 11/30/2024 2:35 PM EDT HPI Shelley Bar is a 34 y.o. female who presents with Pre-op Diagnosis * At high risk for breast cancer [Z91.89] now scheduled for Bilateral prophy skin sparing mastectomy/recon (Bilateral), INSERTION, IMPLANT OR TISSUE CRATER AND PACKER, BREAST, FOR RECONSTRUCTION (Bilateral). Date scheduled is 12/15/2024. Past Medical History[1] Family History[1] Social History[1] SURGICAL HISTORY: Surgical History[1] Allergies[1] MEDICATIONS: Current Medications[1] Charline Noonan RN [1] Past Medical History: Diagnosis Date Anemia stable per patient Anxiety and depression Asthma allergy induced, controlled per patient Disease of thyroid gland GERD (gastroesophageal reflux disease) Hypothyroidism Seasonal allergies Vitamin B12 deficiency [1] Family History Problem Relation Name Age of [...] Cousin Breast cancer Other maternal great aunt [1] Social History Tobacco Use Smoking status: Former Average packs/day: 0.5 packs/day for 20.5 years (10.2 ttl pk-yrs) Types: Cigarettes Start date: 06/09/2003 Smokeless tobacco: Never Vaping Use Vaping status: Never Used Substance Use Topics Alcohol use: No Drug use: Never [1] Past Surgical History: Procedure Laterality Date BELT ABDOMINOPLASTY N/A Abdominoplasty from [facility] SECTION, CLASSIC SECTION, LOW TRANSVERSE N/A Section from [facility] ELBOW SURGERY Right TUBAL LIGATION N/A [1] Allergies Allergen Reactions Bromfed Dm [Xnxhowacd-Mjebuxkw-Yj] Hives [1] No current facility-administered medications for this encounter. Current Outpatient Medications: clonazePAM, Take 1 tablet by mouth daily. Fluticasone Propionate (FLONASE ALLERGY RELIEF NA), Inhale 1 spray in the morning. levothyroxine, Take 1 tablet by mouth daily. montelukast, Take 1 tablet by mouth nightly. omeprazole, Take 1 capsule by mouth daily. sertraline, Take 1.5 tablets by mouth daily. albuterol, Inhale 2 puffs every 4 hours as needed for wheezing. fexofenadine, Take 1 tablet (180 mg) by mouth in the morning. (Patient not taking: Reported on 11/30/2024) ipratropium-albuterol, Take by nebulization as needed. ondansetron, * Preprocedure Instructions - Charline Noonan RN - 11/30/2024 2:25 PM EDT Home Medication Instructions Current Medications Medication Instructions clonazePAM (KlonoPIN) 0.5 MG tablet Take night before surgery Fluticasone Propionate (FLONASE ALLERGY RELIEF NA) Take morning of surgery levothyroxine (Synthroid, Levoxyl) 50 MCG tablet Take morning of surgery montelukast (Singulair) 10 MG tablet Take night before surgery omeprazole (PriLOSEC) [address] capsule Take night before surgery sertraline (Zoloft) 50 MG tablet Take night before surgery General Preoperative Instructions You will be called the business day before surgery with your arrival time Do not eat or drink thick liquids after midnight, encouraged to drink clear liquids until two hoursprior to arrival time (which include water, Pedialyte, apple juice, Gatorade (avoid reds/blue/purple), avoid carbonated drinks). No alcohol or smoking prior to surgery Arrive on time to avoid delays Parking/Registration procedure explained You MUST have a responsible adult available for transport to and from hospital Visitation policy for the day of surgery reviewed Bring insurance card, photo ID, along with power of radio rigger, guardianship or advanced directives if applicable Do not bring money, jewelry or other valuables Hibiclens bathing instructions reviewed if applicable Notify surgeon of fever, illness, any changes or if you decide not to have surgery documented in this encounter Plan of Treatment Upcoming Encounters Date Type Department Care Team (Late st Contact Info) Description 12/22/2024 9:30 AM EDT Office Visit [facility] Plastic & Reconstructive Surgery [address] [place] [id number] Chetna Chen, CHILDRENS CLUB ATTENDANT, DNP [address] [facility] [address] [place] [address] 12/29/2024 11:30 AM EDT Office Visit [facility] Breast [facility] Center [address] [facility]nd [place] [address] Inge López, CHILDRENS [employer] ATTENDANT [address] [facility] [facility] [facility] [facility] [address] [place] [address] 12/30/2024 1:30 PM EDT Office Visit [facility] Plastic & Reconstructive Surgery [address] [place] [address] Jose Hyman MD [address] [place] [address] 01/14/2025 11:00 AM EDT [facility]ointment [facility] [address] [place] [address] 01/14/2025 2:00 PM EDT Office Visit [facility] Breast [facility] [address] [place] [address] Inge López, CHILDRENS CL[employer] ATTENDANT [address] [place] [phone] Pending Results Name Type Priority Associated Diagnoses Date /Time Surgical Pathology Exam Pathology and Cytology Routine At high risk for breast cancer 12/15/2024 10:02 AM EDT Scheduled Orders Name Type Priority Associated Diagnoses Order Schedule Surgical Pathology Exam Pathology and Cytology Timed At high risk for breast cancer Release Upon Ordering for 1 Occurrences starting 12/15/2024, 1 completed Scheduled Referrals Name Type Priority Associated Diagnoses Order Schedule Discharge Ambulatory referral to Plastic Surgery Outpatient Referral Routine At high risk for breast cancer Expected: 12/22/2024, Expires: 06/19/2026 documented as of this encounter Procedures Procedure Name Priority Date/Time Associated Diagnosis Comments POCT , URINE Routine 12/15/2024 6:55 AM EDT documented in this encounter Results * POCT , URINE (12/15/2024 6:55 AM EDT) POCT Test, Urine Negative Males and Non- Females: Negative 12/15/2024 3:56 PM EDT [facility] Announcer ID Nieves Bailey 12/15/2024 3:56 PM EDT HE[facility]ARE LAB Device ID [id number] 12/15/2024 3:56 PM EDT [facility] Urine Urine specimen obtained by clean catch procedure / Unknown 12/15/2024 6:55 AM EDT 12/15/2024 3:56 PM EDT us Chely Woodall MD LAB POINT OF CARE TE ST DOCKED DEVICE UNSOLICITED RESULTS Final Result [facility] [address] [place] [address] documented in this encounter Visit Diagnoses Diagnosis At high risk for breast cancer- Primary documented in this encounter Admitting Diagnoses Diagnosis At high risk for breast cancer documented in this encounter Administered Medications Inactive Administered Medications - up to 3 most recent administrations Medication Order MAR Action Action Date Dose Rate Site acetaminophen (Tylenol) tablet 1,000 mg 1,000 mg, Oral, Once, 1 dose, On Fri12/15/24 at 0700, Routine, Holding - Preprocedure Given 12/15/2024 6:22 AM EDT 1,000 mg acetaminophen (Tylenol) tablet 1,000 mg 1,000 mg, Oral, Once as needed, 1 dose, Starting on Fri12/15/24 at 1435, Until Fri12/15/24 at 1735, Routine, Recovery (Phase I only), pain score of >1 out of 10 Given 12/15/2024 5:35 PM EDT 1,000 mg acetaminophen (Tylenol) tablet 1,000 mg 1,000 mg, Oral, Every 8 hours, First dose on Fri12/15/24 at 1545, Until Discontinued, Routine, Recovery(Phase II-Outpatient)/On Unit(Inpatient) Given 12/15/2024 7:05 PM EDT 1,000 mg aprepitant (Emend) capsule 40 mg 40 mg, Oral, Once, 1 dose, On Fri12/15/24 at 0700, Routine, Holding - Preprocedure Given 12/15/2024 6:22 AM EDT 40 mg ceFAZolin (Ancef) injection 2 g 2 g, Intravenous, Every 8 hours, 3 doses, First dose on Fri12/15/24 at 2030, Last dose on Fri12/16/24 at 1230, Routine, Recovery(Phase II-Outpatient)/On Unit(Inpatient) Given 12/16/2024 5:12 AM EDT 2 g Given 12/15/2024 9:05 PM EDT 2 g fluticasone (Flonase) nasal spray 1 spray 1 spray, Each Nostril, Daily, First dose on Fri12/15/24 at 1545, Until Discontinued, Recovery(Phase II-Outpatient)/On Unit(Inpatient) Given 12/16/2024 8:12 AM EDT 1 spray HYDROmorphone (Dilaudid) injection 0.25 mg 0.25 mg, Intravenous, Once, 1 dose, On Fri12/15/24 at 2230, Routine Given 12/15/2024 10:12 PM EDT 0.25 mg ibuprofen tablet 400 mg 400 mg, Oral, Every 8 hours, First dose on Fri12/15/24 at 1545, Until Discontinued, Routine, Recovery(Phase II-Outpatient)/On Unit(Inpatient) Given 12/16/2024 3:59 AM EDT 400 mg Given 12/15/2024 7:05 PM EDT 400 mg levothyroxine (Synthroid, Levoxyl) tablet 50 mcg 50 mcg, Oral, Every morning, First dose on Sheeba 12/16/24 at 0600, Until Discontinued, Routine, Recovery(Phase II-Outpatient)/On Unit(Inpatient) Given 12/16/2024 5:13 AM EDT 50 mcg methocarbamol (Robaxin) tablet 500 mg 500 mg, Oral, 3 times daily PRN, Starting on Fri12/15/24 at 1449, Until Sheeba 12/16/24 at 1229, Routine, Recovery(Phase II-Outpatient)/On Unit(Inpatient), muscle spasms Given 12/16/2024 8:12 AM EDT 500 mg Given 12/15/2024 5:35 PM EDT 500 mg montelukast (Singulair) tablet 10 mg 10 mg, Oral, Nightly, First dose on Fri12/15/24 at 2100, Until Discontinued, Routine, Recovery(Phase II-Outpatient)/On Unit(Inpatient) Given 12/15/2024 10:13 PM EDT 10 mg ondansetron (Zofran) 4 MG/5ML solution 4 mg 4 mg, Oral, Every 6 hours PRN, Starting on Fri12/15/24 at 1449, Until Sheeba 12/16/24 at 1229, Routine, Recovery(Phase II-Outpatient)/On Unit(Inpatient), nausea, vomiting ondansetron (Zofran) injection 4 mg 4 mg, Intravenous, Every 6 hours PRN, Starting on Fri12/15/24 at 1449, Until Sheeba 7/10/25 at 1229, Routine, Recovery(Phase II-Outpatient)/On Unit(Inpatient), vomiting, nausea ondansetron ODT (Zofran-ODT) disintegrating tablet 4 mg 4 mg, Oral, Every 6 hours PRN, Starting on Fri12/15/24 at 1449, Until Sheeba 12/16/24 at 1229, Routine, Recovery(Phase II-Outpatient)/On Unit(Inpatient), nausea, vomiting oxyCODONE (Roxicodone) immediate release tablet 5 mg 5 mg, Oral, Every 6 hours PRN, Starting on Fri12/15/24 at 1449, Until Sheeba 12/16/24 at 1229, Routine, Recovery(Phase II-Outpatient)/On Unit(Inpatient), moderate pain, severe pain Given 12/16/2024 9:33 AM EDT 5 mg Given 12/16/2024 4:01 AM EDT 5 mg Given 12/15/2024 7:05 PM EDT 5 mg pantoprazole (Protonix) EC tablet 40 mg 40 mg, Oral, Nightly, First dose on Fri12/15/24 at 2100, Until Discontinued, Recovery(Phase II-Outpatient)/On Unit(Inpatient) Given 12/15/2024 10:13 PM EDT 40 mg Povidone-Iodine 5 % swab solution 1 Application Nasal, Once, 1 dose, On Fri12/15/24 at 0700, Routine Given 12/15/2024 6:23 AM EDT 1 Application scopolamine (Transderm-Scop) patch 1 patch 1 patch, Transdermal, Once, 1 dose, On Fri12/15/24 at 0700, Routine, Holding - Preprocedure Medication Applied 12/15/2024 6:22 AM EDT 1 patch Behind Left Ear sertraline (Zoloft) tablet 75 mg 75 mg, Oral, Nightly, First dose on Fri12/15/24 at 2100, Until Discontinued, Routine, Recovery(Phase II-Outpatient)/On Unit(Inpatient) Given 12/15/2024 10:12 PM EDT 75 mg sodium chloride 0.9 % flush 10 mL 10 mL, Intravenous, Every 12 hours, First dose on Fri12/15/24 at 0700, Until Discontinued, Routine, Holding - Preprocedure Given 12/15/2024 6:34 AM EDT 10 mL documented in this encounter Active and Recently Administered Medications Times are shown in EDT. Scheduled Medication Order 12/14/2024 12/15/2024 12/16/2024 acetaminophen (Tylenol) tablet 1,000 mg (COMPLETED) 1,000 mg, Oral, Once, 1 dose, On Fri12/15/24 at 0700, Routine, Holding - Preprocedure 0622 (Given - Provider: Marla Montiel RN) acetaminophen (Tylenol) tablet 1,000 mg 1,000 mg, Oral, Every 8 hours, First dose on Fri12/15/24 at 1545, Until Discontinued, Routine, Recovery(Phase II-Outpatient)/On Unit(Inpatient) 1905 (Given - Provider: Valeria Fraser RN) 0359 (Not Given - Provider: Ashish Mcclendon - Reason: Hold for condition: must add comment - Comment: pt at 4000mg tylenol in 24 hours at this time)1100 (Canceled Entry - Provider: Automatic Discharge Provider - Comment: Automatically canceled at discontinue of medication order) aprepitant (Emend) capsule 40 mg (COMPLETED) 40 mg, Oral, Once, 1 dose, On Fri12/15/24 at 0700, Routine, Holding - Preprocedure 0622 (Given - Provider: Marla Montiel RN) ceFAZolin (Ancef) injection 2 g 2 g, Intravenous, Every 8 hours, 3 doses, First dose on Fri12/15/24 at 2030, Last dose on Fri12/16/24 at 1230, Routine, Recovery(Phase II-Outpatient)/On Unit(Inpatient) 2105 (Given - Provider: Ashish Mcclendon) 0512 (Given - Provider: Ashish Mcclendon) fluticasone (Flonase) nasal spray 1 spray 1 spray, Each Nostril, Daily, First dose on Fri12/15/24 at 1545, Until Discontinued, Recovery(Phase II-Outpatient)/On Unit(Inpatient) 1545 (Not Given - Provider: Esme Pulido RN - Reason: Hold for condition: must add comment - Comment: pt inappropriate, sedated) 0812 (Given - Provider: Kristin Ordonez RN) HYDROmorphone (Dilaudid) injection 0.25 mg (COMPLETED) 0.25 mg, Intravenous, Once, 1 dose, On Fri12/15/24 at 2230, Routine 2212 (Given - Provider: Ashish Mcclendon - Comment: was awaiting provider response for other med orders) ibuprofen tablet 400 mg 400 mg, Oral, Every 8 hours, First dose on Fri12/15/24 at 1545, Until Discontinued, Routine, Recovery(Phase II-Outpatient)/On Unit(Inpatient) 1905 (Given - Provider: Valeria Fraser RN) 0359 (Given - Provider: Ashish Mcclendon)1100 (Canceled Entry - Provider: Automatic Discharge Provider - Comment: Automatically canceled at discontinue of medication order) lactated Ringer's infusion (COMPLETED) 100 mL/hr, Intravenous, Once, 1 dose, On Fri12/15/24 at 0700, Routine 0821 (New Bag - Provider: Norman Pulido CRNA)1140 (Anesthesia Volume Adjustment - Provider: Norman Pulido CRNA)1330 (New Bag - Provider: Norman Pulido CRNA)1505 (Stopped - Provider: Norman Pulido CRNA) levothyroxine (Synthroid, Levoxyl) tablet 50 mcg 50 mcg, Oral, Every morning, First dose on Sheeba 12/16/24 at 0600, Until Discontinued, Routine, Recovery(Phase II-Outpatient)/On Unit(Inpatient) 0513 (Given - Provid er: Ashish Mcclendon) methadone (Dolophine) injection 7.5 mg (COMPLETED) 7.5 mg, Intravenous, Once, 1 dose, On Fri12/15/24 at 0800, Routine, Intraprocedure 0824 (Given - Provider: Norman Pulido CRNA) montelukast (Singulair) tablet 10 mg 10 mg, Oral, Nightly, First dose on Fri12/15/24 at 2100, Until Discontinued, Routine, Recovery(Phase II-Outpatient)/On Unit(Inpatient) 2213 (Given - Provider: Ashish Mcclendon - Comment: was awaiting provider response for other med orders) pantoprazole (Protonix) EC tablet 40 mg 40 mg, Oral, Nightly, First dose on Fri12/15/24 at 2100, Until Discontinued, Recovery(Phase II-Outpatient)/On Unit(Inpatient) 221 (Given - Provider: Ashish Mcclendon - Comment: was awaiting provider response for other med orders) Povidone-Iodine 5 % swab solution 1 Application (COMPLETED) Nasal, Once, 1 dose, On Fri12/15/24 at 0700, Routine 0623 (Given - Provider: Marla Montiel, CAMPOS) scopolamine (Transderm-Scop) patch 1 patch 1 patch, Transdermal, Once, 1 dose, On Fri12/15/24 at 0700, Routine, Holding - Preprocedure 0622 (Medication Applied - Provider: Marla Montiel, CAMPOS) 1029 (Due: Medication Removed - Provider: Automatic Discharge Provider - Comment: Time automatically adjusted from order being discontinued) sertraline (Zoloft) tablet 75 mg 75 mg, Oral, Nightly, First dose on Fri12/15/24 at 2100, Until Discontinued, Routine, Recovery(Phase II-Outpatient)/On Unit(Inpatient) 2211 (Given - Provider: Ashish Mcclendon - Comment: was awaiting provider response for other med orders) sodium chloride 0.9 % flush 10 mL (CANCELED)(Linked Group 1) 10 mL, Intravenous, Every 12 hours, First dose on Fri12/15/24 at 0700, Until Discontinued, Routine, Holding - Preprocedure 0634 (Given - Provider: Marla Montiel, CAMPOS) PRN Medication Order 12/14/2024 12/15/2024 12/16/2024 acetaminophen (Tylenol) tablet 1,000 mg (COMPLETED) 1,000 mg, Oral, Once as needed, 1 dose, Starting on Fri12/15/24 at 1435, Until Fri12/15/24 at 1735, Routine, Recovery (Phase I only), pain score of >1 out of 10 1734 (Given - Provider: Esme Pulido RN) albuterol 108 (90 Base) MCG/ACT inhaler 2 puff 2 puff, Inhalation, Every 4 hours PRN, Starting on Fri12/15/24 at 1449, Until Sheeba 12/16/24 at 1229, Routine, Recovery(Phase II-Outpatient)/On Unit(Inpatient), wheezing bupivacaine-EPINEPHrine PF (Marcaine w/EPI) 0.25% -[id number] injection (CANCELED) As needed, Starting on Fri12/15/24 at 1033, Until Fri12/15/24 at 1528, Routine, Intraprocedure 1033 (Given - Provider: Jose Hyman MD - Comment: intraoperative tap block- each breast receives 30 ml) ceFAZolin (Ancef) 1 g, gentamicin (Garamycin) 80 mg in sodium chloride 0.9 % 1,012 mL irrigation (COMPLETED) Continuous PRN, Starting on Fri12/15/24 at 1017, Until Fri12/15/24 at 1528, Routine 1017 (New Bag - Provider: Darshana Adams MD)1031 (New Bag - Provider: Darshana Adams MD) lidocaine (Xylocaine) 1 % injection (CANCELED) As needed, Starting on Fri12/15/24 at 1034, Until Fri12/15/24 at 1528, Routine, Intraprocedure 1034 (Given - Provider: Jose Hyman MD - Comment: mixed with bup .25% w/epi 1:200,000) methocarbamol (Robaxin) tablet 500 mg 500 mg, Oral, 3 times daily PRN, Starting on Fri12/15/24 at 1449, Until Sheeba 12/16/24 at 1229, Routine, Recovery(Phase II-Outpatient)/On Unit(Inpatient), muscle spasms 1735 (Given - Provider: Esme Pulido RN) 0812 (Given - Provider: Kristin Ordonez RN) ondansetron (Zofran) 4 MG/5ML solution 4 mg(Linked Group 2) 4 mg, Oral, Every 6 hours PRN, Starting on Fri12/15/24 at 1449, Until Sheeba 12/16/24 at 1229, Routine, Recovery(Phase II-Outpatient)/On Unit(Inpatient), nausea, vomiting ondansetron (Zofran) injection 4 mg(Linked Group 2) 4 mg, Intravenous, Every 6 hours PRN, Starting on Fri12/15/24 at 1449, Until Sheeba 7 at 1229, Routine, Recovery(Phase II-Outpatient)/On Unit(Inpatient), vomiting, nausea ondansetron ODT (Zofran-ODT) disintegrating tablet 4 mg(Linked Group 2) 4 mg, Oral, Every 6 hours PRN, Starting on Fri12/15/24 at 1449, Until Sheeba 12/16/24 at 1229, Routine, Recovery(Phase II-Outpatient)/On Unit(Inpatient), nausea, vomiting oxyCODONE (Roxicodone) immediate release tablet 5 mg 5 mg, Oral, Every 6 hours PRN, Starting on Fri12/15/24 at 1449, Until Sheeba 12/16/24 at 1229, Routine, Recovery(Phase II-Outpatient)/On Unit(Inpatient), moderate pain, severe pain 1905 (Given - Provider: Valeria Fraser, RN) 0401 (Given - Provider: Ashish Mcclendon)0933 (Given - Provider: Kristin Ordonez RN) vancomycin (Vancocin) vial for injection (CANCELED) As needed, Starting on Fri12/15/24 at 1018, Until Fri12/15/24 at 1528, Routine, Intraprocedure 1018 (Given - Provider: Darshana Adams MD - Comment: mixed with gent and cef irrigation) Linked Groups Order Group 1: Insert peripheral IV (CANCELED) Once, On Fri12/15/24 at 0602, For 1 occurrence, Holding - Preprocedure And Saline lock IV (CANCELED) Once, On Fri12/15/24 at 0602, For 1 occurrence, Holding - Preprocedure And sodium chloride 0.9 % flush 10 mL (CANCELED)Jump to med 10 mL, Intravenous, Every 12 hours, First dose on Fri12/15/24 at 0700, Until Discontinued, Routine, Holding - Preprocedure And sodium chloride 0.9 % flush 10 mL (CANCELED) 10 mL, Intravenous, As needed, Starting on Fri12/15/24 at 0601, Until Fri12/15/24 at 1854, Routine, Holding - Preprocedure, line care Group 2: ondansetron ODT (Zofran-ODT) disintegrating tablet 4 mgJump to med 4 mg, Oral, Every 6 hours PRN, Starting on Fri12/15/24 at 1449, Until Sheeba 12/16/24 at 1229, Routine, Recovery(Phase II-Outpatient)/On Unit(Inpatient), nausea, vomiting Or ondansetron (Zofran) injection 4 mgJump to med 4 mg, Intravenous, Every 6 hours PRN, Starting on Fri12/15/24 at 1449, Until Sheeba 12/16/24 at 1229, Routine, Recovery(Phase II-Outpatient)/On Unit(Inpatient), vomiting, nausea Or ondansetron (Zofran) 4 MG/5ML solution 4 mgJump to med 4 mg, Oral, Every 6 hours PRN, Starting on Fri12/15/24 at 1449, Until Sheeba 12/16/24 at 1229, Routine, Recovery(Phase II-Outpatient)/On Unit(Inpatient), nausea, vomiting documented in this encounter Additional Health Concerns Assessment Noted Time PHQ-9 Depression Total Score: 2 07/09/19 25 2:29 PM EST A fall risk assessment has been complete d for the patient 10/19/2024 3:44 PM EDT A Body Mass Index follow-up plan has been documented for the patient 12/16/2024 7:59 AM EDT documented as of this encounter Care Teams Senior Research Consultant Relationship Specialty Start Date End Date Cinthya Cali PA [address] [place] [address] PCP - General 10/20/20 documented as of this encounter
--- OUTSIDE RECORDS SUMMARY | 2024-12-15 08:15 | XMS_ITS | Encounter Summary ---
Author Organization [facility] Address [address] [place] [address] Care Team Providers Care Elevator Inspector Name Role Phone Cinthya Cali Primary Care Provider [phone] Reason for Visit * Auth/Cert (Routine) Specialty Diagnoses / Procedures Referred By Contac t Referred To Contact Diagnoses At high risk for breast cancer At high risk for breast cancer [Z91.89] Procedures MA MASTECTOMY, SIMPLE, COMPLETE MA EA ADDNL NERVE GRAFT,SINGLE STRAND MA EA ADDNL NERVE GRAFT,MULTPL STRANDS MA TISSUE IRONWORKER WIRE FENCE ERECTOR PLACEMENT BREAST RECONSTRUCTION Bilateral prophy skin sparing mastectomy/recon INSERTION, IMPLANT OR TISSUE IRONWORKER WIRE FENCE ERECTOR, BREAST, FOR RECONSTRUCTION Chely Woodall MD [address] [place] [address] [address] [address] Phone: tel: fax: [facility] [address] [place] [phone] Phone: tel: Referral ID Status Reason Start Date Expiration Date Visits Re quested Visits Authorized [id number] 1 1 Encounter Details Date Type Department Care Team (Late st Contact Info) Description 12/15/2024 8:15 AM EDT - 12/15/2024 3:00 PM EDT Surgery [facility] [address] [place] [phone] Chely Woodall MD [address] [facility] Jess Lopez [address] [address] Bilateral prophy skin sparing mastectomy/recon [69870 (CPT )] Social History Tobacco Use Types Packs/Day Years [...] Sign Reading Time Taken Comments Blood Pressure 133/82 12/15/2024 6:12 AM EDT Pulse 84 12/15/2024 6:12 AM EDT Temperature 36.9 C (98.4 F) 12/15/2024 6:12 AM EDT Respiratory Rate - - Oxygen Saturation 100% 12/15/2024 6:12 AM EDT Inhaled Oxygen Concentration - - Weight 87.1 kg (192 lb) 12/15/2024 6:02 AM EDT Height 167.6 cm (5' 6 ) 11/30/2024 2:34 PM EDT Body Mass Index 34.16 12/09/2024 1:15 PM EDT documented in this encounter Functional Status * Calculated C-SSRS Risk Score (Lifetime/Recent) Answer Date of Assessment Author No Risk Indicated 12/15/2024 6:14 AM EDT Marla Montiel RN * Question Answer Date of Assessment Author 1. Wish to be (Past 1 Month) No 025 6:14 AM EDT Marla Montiel RN 2. Non-Specific Active Suici crow Thoughts (Past 1 Month) No 12/15/2024 6:14 AM EDT Stacey Montiel RN 6. Suicidal Behavior (Lifetime) No 6:14 AM EDT Marla Montiel RN documented as of this encounter Discharge Instructions * Discharge Instructions* Dang Golden MD - 12/16/2024 5:43 AM EDT [facility] [place] Postoperative Discharge Instructions Follow-up Please follow-up with [...] constipation. If necessary you may take an rkxy-xuu-qotlgea medication (such as MiraLax or Colace). Call [...] you have questions or concerns, please call [phone] during regular business hours or [phone] at any other time (after hours, weekends, and/or holidays) and ask for the GOLD TECHNOLOGY EDUCATION INSTRUCTOR . Please call the above number if [...] for easy dressing. o If you wear stock puller shirts, wear a larger size than [...] The scar will slowly soften and become print press operator in color over several weeks. * Jojo Mazariegos - Chiquita Banda RN - 12/16/2024 7:48 [...] does not seem to beworking properly. 1. [facility] the tube near the skin and hold [...] Date/Time Amount 01/15/09 7 a.m. 20ml * Elhamwin StephenIR - Chiquita Banda RN - 12/16/2024 7:47 AM EDT Images from the original note were not included. 1087 Oxycodone Oral Tablet, Immediate Release Brand Names: Oxaydo, Roxicodone What is this medicine? Oxycodone (ae-k-UHF-done) is an opioid pain reliever. It is used to treat moderate to severe pain. What should I tell my health care provider before I take this medicine? They need to know if you have any of these conditions: ?? Hunter's disease ?? Brain tumor or head injury [...] a special medication guide each time you roller picker this medicine. ?? Overdosage: Taking too much [...] should report to your doctor or health intensive care medicine specialist as soon as possible: ?? allergic reactions [...] attention (report to your doctor or health intensive care medicine specialist if they continue or are bothersome): ?? constipation ?? dry mouth ?? itching ?? nausea, vomiting ?? upset stomach This list may not describe all possible side effects. Call your doctor for medical advice about side effects. You may report side effects to FDA at 8-768-DIH-6337. Where should I keep my medicine? This [...] location. To find a disposal location, visit [facility]. If you cannot take unused medicine to a proper location, you can mix the medicine with coffee grounds or keely litter and dispose of in the normal trash. Your doctor may also give you a special disposal pouch for this medicine. You can also flush the medicine down the toilet. * [facility] - Chiquita Banda RN - 12/16/2024 7:47 AM EDT Images from the original note were not included. 798 Narcan Nasal [place]: Rescue Guide for Opioid Overdose Step 1 [...] in the nose. * [facility] - Chiquita Banda RN - 12/16/2024 7:47 AM EDT Images from the original note were not included. [id number] Naloxone Nasal [place] WHY is this medicine prescribed? Prescription and [...] pharmacist for the instructions or visit the vision rehabilitation therapist's website to get the instructions. You should [...] or doctor for a copy of the vision rehabilitation therapist's information for the patient. Are there OTHER [...] of all of the prescription and nonprescription (mmuj-bwz-ymiqern) medicines, vitamins, minerals, and dietary supplements you [...] or pharmacist about specific clinical use. The [employer] [employer] represents that the information provided hereunder was formulated with a reasonable standard of care, and in conformity with professional standards in the field. The [place] makes no representations or warranties, express or implied, including, but not limited to, any implied warranty of merchantability and/or fitness for a particular purpose, with respect to such information and specifically disclaims all such warranties. Users are advised that decisions regarding drug therapy are complex medical decisions requiring the independent, informed decision of an appropriate health intensive care medicine specialist, and the information is provided for informational purposes only. The entire monograph for a drug should be reviewed for a thorough understanding of the drug's actions, uses and side effects. The [employer] does not endorse or recommend the use of any drug.The information is not a substitute for medical care. AHFS?? Patient Medication Information?. ?? Copyright, 2023. The [employer] Pharmac[employer]??, [address], [address], [place], [place]. All Rights Reserved. Duplication for commercial use must be authorized by [facility]. Selected Revisions: December 27, 2023. AHFS?? Patient Medication Information?. ?? Copyright, 2024 * Jojo Mazariegos - Chiquita Banda RN - 12/16/2024 7:47 AM EDT Images from the original note were not included. [id number] Cephalexin WHY is this medicine prescribed? Cephalexin [...] of all of the prescription and nonprescription (wema-rfc-eaxzqip) medicines, vitamins, minerals, and dietary supplements you [...] or pharmacist about specific clinical use. The [employer] represents that the information provided hereunder was formulated with a reasonable standard of care, and in conformity with professional standards in the field. The [employer] makes no representations or warranties, express or implied, including, but not limited to, any implied warranty of merchantability and/or fitness for a particular purpose, with respect to such information and specifically disclaims all such warranties. Users are advised that decisions regarding drug therapy are complex medical decisions requiring the independent, informed decision of an appropriate health intensive care medicine specialist, and the information is provided for informational purposes only. The entire monograph for a drug should be reviewed for a thorough understanding of the drug's actions, uses and side effects. The [employer] does not endorse or recommend the use of any drug.The information is not a substitute for medical care. AHFS?? Patient Medication Information?. ?? Copyright, 2023. The [employer]??, [address], [address], [place], [place]. All Rights Reserved. Duplication for commercial use must be authorized by [facility]. Selected Revisions: November 22, 2015. AHFS?? Patient Medication Information?. ?? Copyright, 2024 * Jojo On[facility] - Chiquita Banda RN - 12/16/2024 7:47 AM EDT Images from the original note were not included. [id number] Ondansetron WHY is this medicine prescribed? Ondansetron [...] and out of their sight and reach. [email or web address]://www.[employer].org Dispose of unneeded medications in a way [...] 911. Symptoms of overdose may include: ?? sudden [...] of all of the prescription and nonprescription (ovqh-fnb-vwxhgjr) medicines, vitamins, minerals, and dietary supplements you [...] or pharmacist about specific clinical use. The [employer] represents that the information provided hereunder was formulated with a reasonable standard of care, and in conformity with professional standards in the field. The [employer] makes no representations or warranties, express or implied, including, but not limited to, any implied warranty of merchantability and/or fitness for a particular purpose, with respect to such information and specifically disclaims all such warranties. Users are advised that decisions regarding drug therapy are complex medical decisions requiring the independent, informed decision of an appropriate health intensive care medicine specialist, and the information is provided for informational purposes only. The entire monograph for a drug should be reviewed for a thorough understanding of the drug's actions, uses and side effects. The [employer] does not endorse or recommend the use of any drug.The information is not a substitute for medical care. AHFS?? Patient Medication Information?. ?? Copyright, 2023. The [employer]System Pharmacists??, [address], [address], [place], [place]. All Rights Reserved. Duplication for commercial use must be authorized by [facility]. Selected Revisions: December 27, 2023. AHFS?? Patient Medication Information?. ?? Copyright, 2024 * Jojo Mazariegos - Chiquita Banda RN - 12/16/2024 7:47 AM EDT Images from the original note were not included. [id number] Methocarbamol WHY is this medicine prescribed? Methocarbamol [...] awakened, immediately call emergency services at 911. What OTHER INFORMATION should I know? Keep all appointments with your doctor. Do not let anyone else take your medication. Ask your pharmacist any questions you have about refilling your prescription. Keep a written list of all of the prescription and nonprescription (gpgu-fiq-cabikey) medicines, vitamins, minerals, and dietary supplements you [...] or pharmacist about specific clinical use. The [employer] represents that the information provided hereunder was formulated with a reasonable standard of care, and in conformity with professional standards in the field. The [employer] makes no representations or warranties, express or implied, including, but not limited to, any implied warranty of merchantability and/or fitness for a particular purpose, with respect to such information and specifically disclaims all such warranties. Users are advised that decisions regarding drug therapy are complex medical decisions requiring the independent, informed decision of an appropriate health intensive care medicine specialist, and the information is provided for informational purposes only. The entire monograph for a drug should be reviewed for a thorough understanding of the drug's actions, uses and side effects. The [employer] does not endorse or recommend the use of any drug.The information is not a substitute for medical care. AHFS?? Patient Medication Information?. ?? Copyright, 2023. The [employer] Pharmacists??, [address], [address], [place], [place]. All Rights Reserved. Duplication for commercial use must be authorized by [facility]. Selected Revisions: January 21, 2017. AHFS?? Patient Medication Information?. ?? Copyright, 2024 * Discharge Instr - Other Orders - Chiquita Banda RN - 12/16/2024 7:47 AM EDT If you need to contact your doctors after hours, please call [phone] and ask for the doctors degreasing solution reclaimer for GOLD Surgery. * Hospital Course - Dang Golden MD - 12/16/2024 5:49 AM EDT Ms. Bar is a 34yo F with high lifetime risk of breast cancer who was admitted on 11/16/24 following bilateral skin sparing mastectomy and tissue medical support assistant placement. She recovered well from surgery and has good pain control, has appropriate drain output, tolerating a diet, ambulating, and is voiding. * Discharge Summary - Dang Golden MD - 12/16/2024 5:49 AM EDT Hospitalization Admit Date/Time: 12/15/2024 5:28 AM Admitting Attending: Chely Woodall Discharge Date: 12/16/24 Discharge Attending Physician: Chely Woodall MD PCP name and Address: Cinthya Cali PA [address] [place] [address] / [place] [address] Referring provider name and address: Chetna Chen APRN, [address] [address] Chief Concern, Brief History of Present Illness, and Hospital Course Ms. Bar is a 34yo F with high lifetime risk of breast cancer who was admitted on 11/16/24 following bilateral skin sparing mastectomy and tissue medical support assistant placement. She recovered well from surgery and has good pain control, has appropriate drain output, tolerating a diet, ambulating, and is voiding. Surgeries and Procedures Bilateral prophy skin sparing mastectomy/recon (Bilateral), INSERTION, IMPLANT OR TISSUE IRONWORKER WIRE FENCE ERECTOR, BREAST, FOR RECONSTRUCTION (Bilateral) Medication List . [...] constipation. If necessary you may take an uhhf-hgl-fioksqu medication (such as MiraLax or Colace). Call [...] you have questions or concerns, please call [phone] during regular business hours or [phone] at any other time (after hours, weekends, and/or holidays) and ask for the GOLD TECHNOLOGY EDUCATION INSTRUCTOR . Please call the above number if you experience: - a fever 100.4 or higher - unrelieved or increasing pain at your surgical site - significant redness of your incision(s) or surrounding area - concerning drainage from the incision(s) Outpatient Follow-Up Future Appointments Date Time Provider Department Center 12/29/2024 11:30 AM Inge López APRN [facility] 01/14/2025 11:00 AM [facility] 01/14/2025 2:00 PM Inge López APRN [...] medical decision making. Dr. Chely Woodall MD Interim Controller of Surgical Oncology [facility] * Care Plan - Ashish Mcclendon - 12/16/2024 3:18 AM EDT Problem: Adult Inpatient Plan of Care Goal: Plan of Care Review Outcome: Ongoing, Progressing Flowsheets (Taken 12/15/2024 6029 by Esme Pulido, RN) Plan of Care Reviewed With: patient spouse Goal: Patient-Specific Goal (Individualized) Outcome: Ongoing, Progressing Flowsheets (Taken 12/16/2024 1926) Patient/Family-Specific Goals (Include Timeframe): discharging as soon as possible Individualized Care Needs: pain control Goal: Optimal Comfort and Wellbeing Outcome: Ongoing, Progressing * Post-Procedure Note - Evy Charlinenicole Renteria DO - 12/15/2024 11:39 PM EDT Surgery Post-Operative Check Note Shelley Bar is a 34 y.o. female POD#0 from Procedure(s) (LRB): Bilateral prophy skin sparing mastectomy/recon (Bilateral) INSERTION, IMPLANT OR TISSUE IRONWORKER WIRE FENCE ERECTOR, BREAST, FOR RECONSTRUCTION (Bilateral). S: Pt is [...] sparing mastectomy/recon (Bilateral) INSERTION, IMPLANT OR TISSUE IRONWORKER WIRE FENCE ERECTOR, BREAST, FOR RECONSTRUCTION (Bilateral). Currently stable on [...] Postsedation Recovery Goal: Recovery from Sedation Effects 12/15/20241750 by Esme Pulido, RN Outcome: Met 12/15/2024 1546 by Esme Pulido RN Outcome: Ongoing, Progressing Intervention: Support Safe Sedation Recovery 12/15/2024 1751 by Esme Pulido RN Flowsheets (Taken 12/15/2024 153) Stabilization Measures: airway opened Airway/Ventilation Management: airway [...] Support Safe Sedation Recovery Flowsheets (Taken 12/15/2024 153) Stabilization Measures: airway opened Airway/Ventilation Management: airway patency maintained calming measures promoted oxygen therapy provided Reorientation Measures: reorientation provided Note: Pt arrived to PACU with oral airway in place and face tent O2, pt sleeping comfortably, VSS * Op Note - Chely Woodall MD - 12/15/2024 9:03 AM EDT Operative Note Date: 12/15/24 Location: [facility] Name: Shelley Bar, : 1990, Diagnoses: Pre-op Diagnosis At high risk for breast cancer Post-op Diagnosis At high risk for breast cancer Procedure(s): Bilateral skin sparing mastectomy Attending Surgeon(s): Panel 1: * Chely Woodall - Primary Panel 2: * Jose Hyman - Primary Hospital Pharmacy Technician(s): Panel 1: * Dang Golden MD - Resident - Assisting Anesthesia: General ASA: II Blood Administration: Blood Product Administration History None Estimated Blood Loss: 500 mL Drains: Closed/Suction Drain 1 Inferior;Right Breast Bulb 19 Fr. (Active) Closed/Suction Drain 2 Inferior;Left Breast Bulb 19 Fr. (Active) Urethral Catheter Temperature probe;Non-latex 16 Fr. (Active) Implants Type Name Action Serial No. DERMACELL CONTOUR MICROPERF 8X16 - [id number] - [id number] Implanted [id number] DERMACELL CONTOUR MICROPERF 8X16 - [id number] - [id number] Implanted [id number] GRAFT NERVE AVANCE 70MM 2-3MM - [id number] Implanted GRAFT NERVE AVANCE 70MM 2-3MM - [id number] Implanted Tissue Recovery Coordinator IRONWORKER WIRE FENCE ERECTOR BREAST ALLOX2 SMOOTH FULL HT 360-430CC - [id number] - [id number] Implanted [id number] IRONWORKER WIRE FENCE ERECTOR BREAST ALLOX2 SMOOTH FULL HT 360-430CC - [id number] - [id number] Implanted [id number] Specimen: Specimens ID Source Frozen? 1 Breast, [...] any blood thinners. 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 She lives in [place], [place] with her andkids. Patient stopped smoking [...] documented travel since 10/31/24 Allergies Bromfed dm [pgmmmodjr-noncrolx-cp] Medications Current Medications[1] Objective Review of Systems [...] sparing mastectomy/recon (Bilateral), INSERTION, IMPLANT OR TISSUE IRONWORKER WIRE FENCE ERECTOR, BREAST, FOR RECONSTRUCTION (Bilateral). Date scheduled is [...] Touchworks ELBOW SURGERY Right TUBAL LIGATION N/A [1] Allergies Allergen Reactions Bromfed Dm [Yuplcivej-Lkrorhjl-Bm] Hives [1] No current facility-administered medications for [...] card, photo ID, along with power of enlisted advisor, guardianship or advanced directives if applicable Do not bring money, jewelry or other valuables Hibiclens bathing instructions reviewed if applicable Notify surgeon of fever, illness, any changes or if you decide not to have surgery documented in this encounter Plan of Treatment Upcoming Encounters Date Type Department Care Team (Late st Contact Info) Description 12/22/2024 9:30 AM EDT Office Visit [facility] Plastic & Reconstructive Surgery [address] [place] [phone] Chetna Chen, SPINNER HAND, DNP [address] [phone] 12/29/2024 11:30 AM EDT Office Visit [facility] [place] [address] [facility] [place] [address] Inge López, SPINNER HAND [address] [phone] 12/30/2024 1:30 PM EDT Office Visit [facility]astic [facility] Reconstructive Surgery [address] [place] [phone] Jose Hyman MD [address] [phone] 01/14/2025 11:00 AM EDT Appointment [facility] Radiology [address] [place] [address] 01/14/2025 2:00 PM EDT Office Visit [facility] [address] [facility] [place] [address] Inge López, SPINNER HAND [address] [facility] [address] [place] [phone] Pending Results Name Type Priority Associated Diagnoses [...] Negative 12/15/2024 3:56 PM EDT [facility] Gold Blower ID Nieves Bailey 12/15/2024 3:56 PM EDT HEALTHCARE LAB Device ID [id number] 12/15/2024 3:56 PM EDT [facility] Urine Urine specimen obtained by clean catch procedure / Unknown 12/15/2024 6:55 AM EDT 12/15/2024 3:56 PM EDT Chely Woodall MD LAB POINT OF CARE TE ST DOCKED DEVICE UNSOLICITED RESULTS Final Result Performing Organization Address City/State/[facility] Co de Phone Number [facility]ALTH[facility]ARE [facility] [address] [place] [phone] documented in this encounter Visit Diagnoses Diagnosis At high risk for breast cancer- Primary At high risk for breast cancer documented in this encounter Admitting Diagnoses Diagnosis [...] Given 12/15/2024 6:22 AM EDT 40 mg bupivacaine-EPINEPHrine PF (Marcaine w/EPI) 0.25% -1:[id number] injection As needed, Starting on Fri12/15/24 at 1033, Until Fri12/15/24 at 1528, Routine, Intraprocedure Given 12/15/2024 10:33 AM EDT 60 mL ceFAZolin (Ancef) 1 g, gentamicin (Garamycin) 80 mg in sodium chloride 0.9 % 1,012 mL irrigation Continuous PRN, Starting on Fri12/15/24 at 1017, Until Fri12/15/24 at 1528, Routine New Bag 12/15/2024 10:31 AM EDT New Bag 12/15/2024 10:17 AM EDT ceFAZolin (Ancef) injection 2 g 2 g, [...] Given 12/16/2024 5:13 AM EDT 50 mcg lidocaine (Xylocaine) 1 % injection As needed, Starting on Fri12/15/24 at 1034, Until Fri12/15/24 at 1528, Routine, Intraprocedure Given 12/15/2024 10:34 AM EDT 60 mL methocarbamol (Robaxin) tablet 500 mg 500 mg, [...] Given 12/15/2024 6:34 AM EDT 10 mL vancomycin (Vancocin) vial for injection As needed, Starting on Fri12/15/24 at 1018, Until Fri12/15/24 at 1528, Routine, Intraprocedure Given 12/15/2024 10:18 AM EDT 2 g documented in this encounter Active and Recently [...] Fri12/16/24 at 1230, Routine, Recovery(Phase II-Outpatient)/On Unit(Inpatient) 210 (Given - Provider: Ashish Mcclendon) 0512 (Given [...] 2100, Until Discontinued, Routine, Recovery(Phase II-Outpatient)/On Unit(Inpatient) 2212 (Given - Provider: Ashish Mcclendon - Comment: was awaiting provider response for other med orders) pantoprazole (Protonix) EC tablet 40 mg 40 mg, Oral, Nightly, First dose on Fri12/15/24 at 2100, Until Discontinued, Recovery(Phase II-Outpatient)/On Unit(Inpatient) 2212 (Given - Provider: Ashish Mcclendon - [...] Preprocedure 0622 (Medication Applied - Provider: Marla Montiel RN) 1029 (Due: Medication Removed - Provider: Automatic [...] - Preprocedure 0634 (Given - Provider: Marla Montiel RN) PRN Medication Order 12/14/2024 12/15/2024 12/16/2024 acetaminophen [...] Unit(Inpatient), wheezing bupivacaine-EPINEPHrine PF (Marcaine w/EPI) 0.25% -1:[id number] injection (CANCELED) As needed, Starting on Fri12/15/24 [...] muscle spasms 1735 (Given - Provider: Esme Pulido, CAMPOS) 0812 (Given - Provider: Kristin Ordonez RN) [...] severe pain 1905 (Given - Provider: Valeria Fraser RN) 0401 (Given - Provider: Ashish Mcclendon)0933 [...] Time PHQ-9 Depression Total Score: 2 07/09/19 2:29 PM EST A fall risk assessment has been complete d for the patient 10/19/2024 3:44 PM EDT A Body Mass Index follow-up plan has been documented for the patient 12/16/2024 7:59 AM EDT documented as of this encounter Care Teams Elevator Inspector Relationship Specialty Start Date End Date Cinthya Cali PA [address] [place] [address] PCP - General 10/20/20 documented as of this encounter
--- OUTSIDE RECORDS SUMMARY | 2024-12-15 08:20 | XMS_ITS | Encounter Summary ---
Author Organization [facility] Address [address] [place] [address] Care Team Providers Care Snuff Packing Machine Operator Name Role Phone Cinthya Cali Primary Care Provider [phone] Reason for Visit * Auth/Cert (Routine) Specialty Diagnoses / Procedures Referred By Contac t Referred To Contact Diagnoses At high risk for breast cancer At high risk for breast cancer [Z91.89] Procedures LA MASTECTOMY, SIMPLE, COMPLETE LA EA ADDNL NERVE GRAFT,SINGLE STRAND LA EA ADDNL NERVE GRAFT,MULTPL STRANDS LA TISSUE PRESS AND BLOW MACHINE TENDER PLACEMENT BREAST RECONSTRUCTION Bilateral prophy skin sparing mastectomy/recon INSERTION, IMPLANT OR TISSUE PRESS AND BLOW MACHINE TENDER, BREAST, FOR RECONSTRUCTION Chely Woodall MD [address] [address] Phone: tel: fax: [facility] [address] [place] [address] Phone: tel: Referral ID Status Reason Start Date Expiration Date Visits Re quested Visits Authorized [id number] 1 1 Encounter Details Date Type Department Care Team (Late st Contact Info) Description 12/15/2024 8:20 AM EDT Anesthesia Event [facility] [address] [place] [address] Norman Pulido CRNA [address] [place] [id number] Anesthesia Record Procedure Summary Procedure Name Responsible Anesthesiologist Anesthesia Start Time Anesthesia Stop Time Bilateral prophy skin sparing mastectomy/recon (Bilateral) Norman Pulido, WINDOW INSTALLER 12/15/24 0820 12/15/24 1540 Events Date Time Event Comment 12/15/2024 0731 0820 An Start The patient was reevaluated immediately before sedation and remains eligible for anesthesia plan. 0821 In Room 0822 An Start Data 0824 An Induction The patient was reevaluated immediately before moderate or deep sedation use and before anesthesia induction. 0826 An Intubation 0829 Anesthesia Ready 0901 Attending Handoff 0903 Proc Start 1512 An Extubation 1525 Proc Fin 1527 an stop data 1528 Out of Room 1540 Handoff to Receiving I compl eted my handoff to the receiving clinician during which we: 1. Identified the patient 2. Identified the responsible provider 3. Reviewed the pertinent medical history 4. Discussed the surgical course 5. Reviewed intra-op anesthesia management and issues during anesthesia 6. Set expectations for post-procedure period 7. Allowed opportunity for questions and acknowledgement of understanding. 1540 An Stop Meds Name Total midazolam (Versed) injection 1 mg/mL 2 m g fentaNYL (Sublimaze) injection 50 mcg/mL 350 mcg propofol (Diprivan) injection 10 mg/mL 2 00 mg rocuronium (ZeMuron) injection 10 mg/mL 260 mg dexamethasone (Decadron) injection 4 mg/ mL 8 mg ondansetron (Zofran) injection 2 mg/mL 4 mg sugammadex (Bridion) injection 100 mg/mL 100 mg ceFAZolin (Ancef) vial 1 g 4 g ketamine (Ketalar) injection 10 mg/mL 50 mg methadone (Dolophine) injection 7.5 mg 7 .5 mg diphenhydrAMINE (BENADRYL) injection 50 mg/mL 10 mg acetaminophen (Ofirmev) injection 10 mg/ mL 1,000 mg dexmedetomidine (Precedex) injection 100 mcg/mL 30 mcg calcium chloride injection 10% 0.25 g HYDROmorphone PF (Dilaudid) injection 1 mg/mL 1 mg lactated Ringer's infusion 2,000 mL electrolyte (Isolyte or Plasma-lyte) IV solution 2,000 mL * Agents No agents on file. * Blood No blood administrations on file. Lines, Drains, and Airways Type Details Placement Removal Wound 12/15/24; Yes; Surgical; Breast; Lower, Right 12/15/24 0000 by Jake Johnson RN Wound 12/15/24; Yes; Surgical; Breast; Left, Lower 12/15/24 0000 by Jake Johnson RN Closed/Suction Drain 12/15/24; Yes; 1; Inferior, Right; Breast; Bulb; 19 Fr. 12/15/24 0000 by Jake Johnson RN Closed/Suction Drain 12/15/24; Yes; 2; Inferior, Left; Breast; Bulb; 19 Fr. 12/15/24 0000 by Jake Johnson RN Peripheral IV Placement Date: 12/15/24; Placement Time: 633; Catheter Size: 20 G; Orientation: Left; Location: Antecubital; Site Prep: Alcohol; Insertion Attempts: 2; Patient Tolerance: Tolerated well; Removal Date: 12/16/24; Removal Time: 814; Removal Reason: Discharge 12/15/24 0634 by Marla Montiel RN 12/16/24 08 by Kristin Ordonez RN ETT Placement Date: 12/15/24; Placement Time: 825 (created via procedure documentation); Mask Ventilation: 1; Technique: Direct laryngoscopy; Type: ETT - single; Single Lumen Tube Size: 7.5 mm; Cuffed: Yes; Laryngoscope: Fernandes; Blade Size: 2; Location: Oral; Grade View: Grade I; Insertion Attempts: 1; Placement Verification: Auscultation, Capnometry; Placed by: BRYON; Removal Date: 12/15/24; Removal Time: [id number]/15/24825 by Norman Pulido CRNA 12/15/24 151 by Norman Pulido CRNA Peripheral IV Placement Date: 12/15/24; Placement Time: 913 (created via procedure documentation); Catheter Size: 18 G; Orientation: Left; Location: Hand; Technique: Anatomical landmarks; Insertion Attempts: 1; Removal Date: 12/16/24; Removal Time: 814; Removal Reason: Discharge 12/15/24 09 by Norman Pulido CRNA 12/16/24 08 by Kristin Ordonez RN documented in this encounter Social History Tobacco Use Types Packs/Day Years [...] on file documented as of this encounter Functional Status * Calculated C-SSRS [...] Montiel RN documented as of this encounter Miscellaneous Notes * Anesthesia Postprocedure Evaluation - Norman Pulido CRNA - 12/15/2024 3:40 PM EDT Patient: Shelley Bar Anesthesia Type: general Vitals Value Taken Time BP 102/53 12/15/24 15:35 Temp 37.3 12/15/24 15:40 Pulse 94 12/15/24 15:39 Resp 13 12/15/24 15:39 SpO2 95 % 12/15/24 15:39 Vitals shown include unfiled device data. Anesthesia Post Evaluation Patient location during evaluation: PACU Level of consciousness: responsive to physical stimuli Pain management: adequate (pain score 0-3) Airway patency: supraglottic device Cardiovascular status: acceptable Respiratory status: acceptable, oral airway and face mask Hydration status: acceptable Nausea/Vomiting: No No notable events documented. * Anesthesia Procedure Notes - Norman Pulido CRNA - 12/15/2024 9:14 AM EDTAssociated Order(s): Peripheral IV Peripheral IV Placement Needle size: 18 G Location: hand Site prep: alcohol Technique: anatomical landmarks Attempts: 1 * Anesthesia Procedure Notes - Norman Pulido CRNA - 12/15/2024 9:14 AM EDTAssociated Order(s): Airway Airway Date/Time: 12/15/2024 8:26 AM Reason: elective Airway not difficult General Information and Staff Patient location during procedure: OR WINDOW INSTALLER: Norman Pulido CRNA Performed: WINDOW INSTALLER Patient Condition Indications for airway management: anesthesia Patient position: sniffing Final Airway Details Final airway type: endotracheal airway Successful airway: ETT Cuffed: yes Successful intubation technique: direct laryngoscopy Endotracheal tube insertion site: oral Blade: Fernandes Blade size: #2 ETT size (mm): 7.5 Cormack-Lehane Classification: grade I - full view of glottis Placement verified by: chest auscultation and capnometry Inital cuff pressure (cm H2O): 20 Measured from: lips ETT to lips (cm): 21 * Anesthesia Preprocedure Evaluation - Kasey Smith MD - 12/15/2024 7:27 AM EDT WINDOW INSTALLER: Norman Pulido CRNA Patient: Shelley Bar HPI Shelley Bar is a 34 y.o. female with body mass index is 31.95 kg/m??. who presents with At high risk for breast cancer, now for Bilateral prophy skin sparing mastectomy/recon (Bilateral), INSERTION, IMPLANT OR TISSUE PRESS AND BLOW MACHINE TENDER, BREAST, FOR RECONSTRUCTION (Bilateral) Procedure Information Date/Time: 12/15/24 0815 Procedures: Bilateral prophy skin sparing mastectomy/recon (Bilateral) INSERTION, IMPLANT OR TISSUE PRESS AND BLOW MACHINE TENDER, BREAST, FOR RECONSTRUCTION (Bilateral) Location: [facility] Surgeons: Chely Woodall MD; Jose Hyman MD 34 yo for bilateral prophy mastectomy/recon. Strong fam hx of cancer. ALLERGIES Allergies[1] NPO STATUS Date of Last Liquid: 12/14/24 Time of Last Liquid: 2099 Date of Last Solid: 12/14/24 Time of Last Solid: 2099 Past Medical History[2] MEDICATIONS Outpatient Current Outpatient Medications Medication Instructions albuterol 108 (90 Base) MCG/ACT inhaler 2 puffs, Inhalation, Every 4 hours PRN clonazePAM (KLONOPIN) 0.5 mg, Daily fexofenadine (JENNIFER) 180 mg, Daily Fluticasone Propionate (FLONASE ALLERGY RELIEF NA) 1 spray, Daily ipratropium-albuterol (Duo-Neb) 0.5-2.5 mg/3 mL nebulizer solution Take by nebulization as needed. levothyroxine (SYNTHROID, LEVOXYL) 50 mcg, Daily montelukast (SINGULAIR) 10 mg, Nightly omeprazole (PRILOSEC) 40 mg, Daily ondansetron (Zofran) 4 MG tablet sertraline (ZOLOFT) 75 mg, Daily Scheduled Current Scheduled Medications[3] PRNs Current PRN Medications[4] SURGICAL HX: Surgical History[5] SOCIAL HX: Social History[6] OBJECTIVE DATA LABS Lab Results Component Value Date WBC 5.86 04/01/2024 HGB 13.7 04/01/2024 HCT 43.3 04/01/2024 MCV 83 04/01/2024 PLT 362 04/01/2024 Lab Results Component Value Date CALCIUM 9.4 04/01/2024 BUN 10 04/01/2024 CREATININE 0.97 04/01/2024 BCR 10 04/01/2024 NA 138 04/01/2024 K 3.7 04/01/2024 CL 102 04/01/2024 CO2 25 04/01/2024 BP Readings from Last 5 Encounters: 12/15/24 133/82 12/09/24 126/82 12/01/24 120/81 10/19/24 121/81 08/18/24 130/84 Physical Exam Airway Mallampati: II Mouth opening: normal TM distance: >3 FB Neck ROM: full Cardiovascular Rhythm: regular Rate: normal Dental - normal exam Pulmonary Breath sounds clear to auscultation Neurological Oriented: normal to time, normal to place and normal to person and oriented to person, place and time Skin - normal exam Skin: warm and dry Musculoskeletal Extremities Other findings: BP 133/82 Pulse 84 Temp 36.9 ??C (98.4 ??F) Ht 1.676 m (5' 6 ) Wt 87.1 kg (192 lb) LMP 11/23/2024 SpO2 100% BMI 31.95 kg/m?? OB Status Having periods Smoking Status Former BSA 2 m?? Anesthesia Plan ASA 2 Plan was reviewed with: WINDOW INSTALLER Anesthesia technique(s) discussed with the patient/family: general Anesthesia plan agreed upon was: general Anesthetic plan and risks discussed with patient. Anesthesia Evaluation [1] Allergies Allergen Reactions Bromfed Dm [Nrlsaznla-Wvjqbrlj-Qr] Hives [2] Past Medical History: Diagnosis Date Anemia stable per patient Anxiety and depression Asthma allergy induced, controlled per patient Disease of thyroid gland GERD (gastroesophageal reflux disease) Hypothyroidism Seasonal allergies Vitamin B12 deficiency [3] ceFAZolin, 2 g, Intravenous, Once lactated Ringer's, 100 mL/hr, Intravenous, Once methadone, 7.5 mg, Intravenous, Once scopolamine, 1 patch, Transdermal, Once Insert peripheral IV, , , Once AND Saline lock IV, , , Once AND sodium chloride, 10 mL, Intravenous, q12h AND sodium chloride, 10 mL, Intravenous, PRN [4] PRN medications: lidocaine, Insert peripheral IV AND Saline lock IV AND sodium chlorideAND sodium chloride [5] Past Surgical History: Procedure Laterality Date BELT ABDOMINOPLASTY N/A Abdominoplasty from [facility] SECTION, CLASSIC SECTION, LOW TRANSVERSE N/A Section from [facility] ELBOW SURGERY Right TUBAL LIGATION N/A [6] Social History Tobacco Use Smoking status: Former Average packs/day: 0.5 packs/day for 20.5 years (10.2 ttl pk-yrs) Types: Cigarettes Start date: 06/09/2003 Smokeless tobacco: Never Vaping Use Vaping status: Never Used Substance Use Topics Alcohol use: No Drug use: Never documented in this encounter Plan of Treatment Upcoming Encounters Date Type Department Care Team (Late st Contact Info) Description 12/22/2024 9:30 AM EDT Office Visit [facility] Plastic & Reconstructive Surgery [address] [place] [phone] Chetna Chen, LENO, DNP [address] [phone] 12/29/2024 11:30 AM EDT Office Visit [facility] Breast [facility] [address] [facility] [place] [address] Inge López, DIRECTOR OF MARKETING [address] [facility] [address] [place] [address] 12/30/2024 1:30 PM EDT Office Visit [facility] Plastic & Reconstructive Surgery [address] [place] [phone] Jose Hyman MD [address] [phone] 01/14/2025 11:00 AM EDT Appointment [facility] Radiology [address] [place] [address] 01/14/2025 2:00 PM EDT Office Visit [facility] Breast [facility] [address] [phone] Inge López, DIRECTOR OF MARKETING [address] [facility] [address] [place] [address] documented as of this encounter Procedures Procedure Name Priority Date/Time Associated Diagnosis Comments ANESTHESIA PERIPHERAL IV PLACEMENT Routine 12/15/2024 9:14 AM EDT PB ANESTHESIA PLACEHOLDER Routine 12/15/2024 8:26 AM EDT LA AN ELECTIVE ENDOTRACHEAL AIRWAY Routine 12/15/2024 8:26 AM EDT documented in this encounter Results * Peripheral IV (12/15/2024 9:14 AM EDT) Narrative Norman Pulido CRNA - 12/15/2024 9:14 AM EDT Norman Pulido CRNA 12/15/2024 9:14 AM Peripheral IV Placement Needle size: 18 G Location: hand Site prep: alcohol Technique: anatomical landmarks Attempts: 1 Kasey Smith MD ANESTHESIA ORDERABLES Final R esult * LA AN ELECTIVE ENDOTRACHEAL AIRWAY, PB ANESTHESIA PLACEHOLDER (12/15/2024 8:26 AM EDT) Narrative Norman Pulido CRNA - 12/15/2024 8:26 AM EDT Norman Pulido CRNA 12/15/2024 9:14 AM Airway Date/Time: 12/15/2024 8:26 AM Reason: elective Airway not difficult General Information and Staff Patient location during procedure: OR WINDOW INSTALLER: Norman Pulido CRNA Performed: BRYON Patient Condition Indications for airway management: anesthesia Patient position: sniffing Final Airway Details Final airway type: endotracheal airway Successful airway: ETT Cuffed: yes Successful intubation technique: direct laryngoscopy Endotracheal tube insertion site: oral Blade: Fernandes Blade size: #2 ETT size (mm): 7.5 Cormack-Lehane Classification: grade I - full view of glottis Placement verified by: chest auscultation and capnometry Inital cuff pressure (cm H2O): 20 Measured from: lips ETT to lips (cm): 21 Kasey Smith MD ANESTHESIA ORDERABLES Final R esult documented in this encounter Visit Diagnoses Not on filedocumented in this encounter Administered Medications Inactive Administered Medications - up to 3 most recent administrations Medication Order MAR Action Action Date Dose Rate Site acetaminophen (Ofirmev) injection Intravenous, As needed, Starting on Fri12/15/24 at 1224, Until Fri12/15/24 at 1540, Routine Given 12/15/2024 12:24 PM EDT 1,000 mg calcium chloride 10 % injection Intravenous, As needed, Starting on Fri12/15/24 at 1442, Until Fri12/15/24 at 1540, Routine, Anesthesia Intraprocedure Given 12/15/2024 2:42 PM EDT 0.25 g ceFAZolin (Ancef) injection Intravenous, As needed, Starting on Fri12/15/24 at 0848, Until Fri12/15/24 at 1540, Routine, Anesthesia Intraprocedure Given 12/15/2024 12:38 PM EDT 2 g Given 12/15/2024 8:48 AM EDT 2 g dexamethasone (Decadron) injection Intravenous, As needed, Starting on Fri12/15/24 at 0912, Until Fri12/15/24 at 1540, Routine, Anesthesia Intraprocedure Given 12/15/2024 9:12 AM EDT 8 mg dexmedetomidine (Precedex) 100 MCG/ML concentrated solution Intravenous, As needed, Starting on Fri12/15/24 at 1229, Until Fri12/15/24 at 1540, Routine, Anesthesia Intraprocedure Given 12/15/2024 1:28 PM EDT 10 mcg Given 12/15/2024 12:32 PM EDT 10 mcg Given 12/15/2024 12:29 PM EDT 10 mcg diphenhydrAMINE (Benadryl) injection Intravenous, As needed, Starting on Fri12/15/24 at 0912, Until Fri12/15/24 at 1540, Routine, Anesthesia Intraprocedure Given 12/15/2024 9:12 AM EDT 10 mg electrolyte (Isolyte-S or Plasmalyte-A) IV solution Intravenous, Continuous PRN, Starting on Fri12/15/24 at 0900, Until Fri12/15/24 at 1540, Routine New Bag 12/15/2024 11:40 AM EDT New Bag 12/15/2024 9:00 AM EDT fentaNYL (Sublimaze) injection Intravenous, As needed, Starting on Fri12/15/24 at 0824, Until Fri12/15/24 at 1540, Routine, Anesthesia Intraprocedure Given 12/15/2024 12:32 PM EDT 100 mcg Given 12/15/2024 8:24 AM EDT 250 mcg HYDROmorphone PF (Dilaudid) injection Intravenous, As needed, Starting on Fri12/15/24 at 1506, Until Fri12/15/24 at 1540, Routine, Anesthesia Intraprocedure Given 12/15/2024 3:06 PM EDT 1 mg ketamine (Ketalar) injection Intravenous, As needed, Starting on Fri12/15/24 at 0824, Until Fri12/15/24 at 1540, Routine, Anesthesia Intraprocedure Given 12/15/2024 8:24 AM EDT 50 mg lactated Ringer's infusion 100 mL/hr, Intravenous, Once, 1 dose, On Fri12/15/24 at 0700, Routine New Bag 12/15/2024 1:30 PM EDT New Bag 12/15/2024 8:21 AM EDT methadone (Dolophine) injection 7.5 mg 7.5 mg, Intravenous, Once, 1 dose, On Fri12/15/24 at 0800, Routine, Intraprocedure Given 12/15/2024 8:24 AM EDT 7.5 mg midazolam (Versed) injection Intravenous, As needed, Starting on Fri12/15/24 at 0821, Until Fri12/15/24 at 1540, Routine, Anesthesia Intraprocedure Given 12/15/2024 8:21 AM EDT 2 mg ondansetron (Zofran) injection Intravenous, As needed, Starting on Fri12/15/24 at 1441, Until Fri12/15/24 at 1540, Routine, Anesthesia Intraprocedure Given 12/15/2024 2:41 PM EDT 4 mg propofol (Diprivan) injection Intravenous, As needed, Starting on Fri12/15/24 at 0824, Until Fri12/15/24 at 1540, Routine, Anesthesia Intraprocedure Given 12/15/2024 1:28 PM EDT 50 mg Given 12/15/2024 11:52 AM EDT 50 mg Given 12/15/2024 8:24 AM EDT 100 mg rocuronium (ZeMuron) injection Intravenous, As needed, Starting on Fri12/15/24 at 0910, Until Fri12/15/24 at 1540, Routine, Anesthesia Intraprocedure Given 12/15/2024 2:10 PM EDT 10 mg Given 12/15/2024 1:45 PM EDT 10 mg Given 12/15/2024 1:16 PM EDT 20 mg sugammadex (Bridion) 100 MG/ML injection Intravenous, As needed, Starting on Fri12/15/24 at 1505, Until Fri12/15/24 at 1540, Routine, Anesthesia Intraprocedure Given 12/15/2024 3:05 PM EDT 100 mg documented in this encounter Additional Health Concerns Assessment Noted Time PHQ-9 Depression Total Score: 2 07/09/19 25 2:29 PM EST A fall risk assessment has been complete d for the patient 10/19/2024 3:44 PM EDT A Body Mass Index follow-up plan has been documented for the patient 12/16/2024 7:59 AM EDT documented as of this encounter Care Teams Snuff Packing Machine Operator Relationship Specialty Start Date End Date Cinthya Cali PA [address] [place] [address] PCP - General 10/20/20 documented as of this encounter
--- NOTE | 2024-12-17 13:55 | ECG_ITS ---
APPROVED REPORT Exam: Resting ECG HR:86 bpm ECG Measurements Heart Rate 86 AXES OH 124 P 51 QRSd 89 QRS 34 QT 370 T 31 QTc 413 Conclusion SINUS RHYTHM Normal ECG Electronically signed by : Jonn Hernandez, 12/17/2024 16:48:40
[2024-12-17 13:59] VITALS: BP 137/84; PULSE 83; RESP 16; TEMP 36.9; O2SAT 99; BMI 31.9
--- NOTE | 2024-12-17 14:01 | CT_ITS ---
FINAL REPORT TECHNIQUE: Thin section axial CT with contrast with multiplanar reconstruction This study was performed with techniques to keep radiation doses as low as reasonably achievable, (ALARA). Individualized dose reduction techniques using automated exposure control or adjustment of mA and/or kV according to the patient's size were employed. CLINICAL HISTORY: 48 hrs post op double mastectomy. Dyspnea. COMPARISON: None FINDINGS: Pulmonary vessels enhance in normal fashion without evidence of embolism. Thoracic aorta shows no dissection or aneurysm. Moderate bilateral lower lobe atelectasis is present without evidence of pneumonia. There is no significant pleural effusion. There is no significant pericardial effusion. No mediastinal or hilar adenopathy is present. There are surgical changes of bilateral mastectomies. Breast expanders are present with upper chest surgical drains. IMPRESSION: 1. No evidence of pulmonary embolism 2. Moderate bilateral lower lobe atelectasis without significant effusion or pneumonia. 3. Surgical changes of bilateral mastectomies with breast expanders and upper chest surgical drains. Reviewed, Interpreted and Dictated by Chad Parikh MD Transcribed by Dianna Sands Authenticated and [facility]
--- OUTSIDE RECORDS SUMMARY | 2024-12-17 14:13 | XMS_ITS | Continuity of Care Document ---
Author Name [facility] Organization [facility] Care Team Providers Care Entry Level Sales Associate Name Role Phone [facility] Unavailable Unavailable Medications Combined list of outpatient medications from Department of Defense and Veterans Affairs facilities.Medications provided include 1) outpatient medications from the last 15 months, and 2) patient-reported medications. Medication Details Route Status Patient Instructions Prescription Expires Prescription Number Last Dispense Date Ordering Provider Order Date Order Qty Source OMEPRAZOLE (omeprazole ), 40 MG, CAPSULE DR ORAL, [employer], 500 ea. BOTTLE Cancele d [id number] : 2023 0 Pharmac y Data Transac tion Service Facilit y OMEPRAZOLE (omeprazole ), 40 MG, CAPSULE DR ORAL, [employer], 500 ea. BOTTLE Cancele d [id number] : 2023 0 Pharmac y Data Transac tion Service Facilit y Immunizations Combined list of available immunizations from the Department of Defense and Veterans Affairs facilities. Immunization Series Date Given Administered By Site Reaction Lot Number CVX Code Drug Road Roller Operator Hot Mix Status Comments Source influenza, injectable, quadrivalent, preservative free 2020 THAIS KENDRICK () Not Given influenza , injectabl e, quadrival ent, preservat kg free DoD Tdap 2014 WADE, () Not Given Tdap DoD Social History Combined list of available smoking, tobacco, and other social history from Department of Defense and Veterans Affairs facilities. Social History Type Response Date Comment Sourc e This section is an empty social history section. DoD
--- OUTSIDE RECORDS SUMMARY | 2024-12-17 14:18 | XMS_ITS | Clinical Summary ---
Author Organization [employer] ([place], [place], [place], [place]) Address [address] [place] [address] Care Team Providers Care Tobacco Sample Puller Name Role Phone Cinthya Cali PA-C Primary Care Provider [phone] Allergies No known active allergies Social History Tobacco Use Types Packs/Day Years Used Date Smoking Tobacco: Every Day Smokeless Tobacco: Never Alcohol Use Standard Drinks/Week Comments Never 0 (1 standard drink = 0.6 oz pur e alcohol) Food Insecurity Answer Date Recorded Food run out past 12 months Not on file 06/09 Food did not last past 12 months Not on file 06/19/2023 Employment Answer Date Recorded Help finding and keeping a job Not on file 0 06/19/2023 Family and Community Support Answer Ruel e Recorded Help with Day to Day Activities Not on file 06/19/2023 Feeling Lonely or Isolated Not on file 06/19 Educational Attainment Answer Date Rc rded Speak language other than Irish at home Not on file 06/19/2023 Want help with school or training Not on file 06/19/2023 Substance Use Answer Date Recorded Used prescription meds for non-medical reasons N ot on file 06/19/2023 Used illegal drugs past 12 months Not on file 06/19/2023 Comments Unknown Sex and Gender Information Value Date Recorded Sex Assigned at Not on file Legal Sex Female 5:32 PM CDT Gender Identity Not on file Sexual Orientation Not on file Last Filed Vital Signs Vital Sign Reading Time Taken Comments Blood Pressure 136/76 06/03/2022 6:10 PM EST Pulse 82 06/03/2022 6:10 PM EST Temperature 36.8 C (98.3 F) 06/03/2022 6:10 PM EST Respiratory Rate 16 06/03/2022 6:10 PM EST Oxygen Saturation 98% 06/03/2022 6:10 PM EST Inhaled Oxygen Concentration - - Weight 86.2 kg (190 lb) 06/03/2022 6:10 PM EST Height 165.1 cm (5' 5 ) 06/03/2022 6:10 PM EST Body Mass Index 31.62 06/03/2022 6:10 PM EST Plan of Treatment Health Maintenance Due Date Last Done Comments Depression Screening (12+) 2001 HIV Screening 2004 Hepatitis C Screening 2007 DTAP/TDAP/TD VACCINES (1 - Tdap) 2008 Pneumococcal Vaccine: 0-49 Y ears (1 of 2 - PCV) 2008 Lipid Panel 2009 Pap Smear 2010 Tobacco Cessation Counseling and Screening (12+) 06/03/2023 06/03/2022 COVID-19 VACCINE ( season) 2024, 06/29/2020 Influenza Vaccine (#1) 2025 Insurance [facility] Care Teams Tobacco Sample Puller Relationship Specialty Start Date End Date Cinthya Cali PA-C [address] [address] PCP - General Family Medicine 06/03/22
--- OUTSIDE RECORDS SUMMARY | 2024-12-17 14:18 | XMS_ITS | Encounter Summary ---
Author Organization Healthcare Address [address] [place] [address] Care Team Providers Care Dispensing And Measuring Optician Name Role Phone Cinthya Cali Primary Care Provider [phone] Encounter Details Date Type Department Care Team (Latest Contact Info) Description 12/09/2024 Travel Social History Tobacco Use Types Packs/Day Years [...] on file documented as of this encounter Plan of Treatment Upcoming Encounters Date Type Department Care Team (Late st Contact Info) Description 12/22/2024 9:30 AM EDT Office Visit [facility] Plastic & Reconstructive Surgery [address] [place] [address] Chetna Chen APRN, DNP [address] [address] 12/29/2024 11:30 AM EDT Office Visit [facility] Breast Care Center [address] [facility], 2nd [place] [address] Inge López, PATIENT SCHEDULING COORDINATOR [address] [facility] [address] [place] [address] 12/30/2024 1:30 PM EDT Office Visit [facility] Plastic & Reconstructive Surgery [address] [place] [address] Jose Hyman MD [address] [place] [address] 01/14/2025 11:00 AM EDT Appointment [facility] [address] [place] [address] 01/14/2025 2:00 PM EDT Office Visit [facility] [address] [facility], 2nd [place] [address] Inge López, PATIENT SCHEDULING COORDINATOR [address] [facility] [address] [place] [address] documented as of this encounter Visit Diagnoses Not on filedocumented in this encounter Additional Health Concerns Assessment Noted Time PHQ-9 Depression Total Score: 2 07/09/19 25 2:29 PM EST A fall risk assessment has been complete d for the patient 10/19/2024 3:44 PM EDT A Body Mass Index follow-up plan has been documented for the patient 12/17/2024 8:32 AM EDT documented as of this encounter Care Teams Dispensing And Measuring Optician Relationship Specialty Start Date End Date Cinthya Cali PA [address] [place] [address] PCP - General 10/20/20 documented as of this encounter
--- OUTSIDE RECORDS SUMMARY | 2024-12-17 14:18 | XMS_ITS | Encounter Summary ---
Author Organization Healthcare Address [address] [place] [address] Care Team Providers Care Hr Internship Name Role Phone Cinthya Cali Primary Care Provider [phone] Encounter Details Date Type Department Care Team (Latest Contact Info) Description 12/01/2024 Travel Social History Tobacco Use Types Packs/Day [...] 9:30 AM EDT Office Visit [facility] Plastic & Reconstructive Surgery [address] [place] [address] Chetna Chen APRN, DNP [address] [address] 12/29/2024 11:30 AM EDT Office Visit [facility] Breast Care Center [address] [facility], 2nd [place] [address] Inge López, ASSISTANT VICE PRESIDENT [address] [facility] Jess Lopez [facility] [address] [place] [address] 12/30/2024 1:30 PM EDT Office Visit [facility] Plastic & Reconstructive Surgery [address] [place] [address] Jose Hyman MD [address] 2[address] [place] [address] 01/14/2025 11:00 AM EDT Appointment [facility] [address] [place] [address] 01/14/2025 2:00 PM EDT Office Visit [facility] Center [address] [facility], 2nd [place] [address] Inge López, ASSISTANT VICE PRESIDENT [address] [facility] Jess Lopez [facility] [address] [place] [address] documented as of this encounter Visit Diagnoses [...] documented as of this encounter Care Teams Hr Internship Relationship Specialty Start Date End Date Cinthya Cali PA [address] [place] [address] PCP - General 10/20/20 documented as of this encounter
--- OUTSIDE RECORDS SUMMARY | 2024-12-17 14:18 | XMS_ITS | Encounter Summary ---
Author Organization Healthcare Address [address] [place] [address] Care Team Providers Care High School Professional Name Role Phone Cinthya Cali Primary Care Provider [phone] Encounter Details Date Type Department Care Team (Latest Contact Info) Description 10/19/2024 Travel Social History Tobacco Use Types Packs/Day [...] Description 12/22/2024 9:30 AM EDT Office Visit [facility] Plastic & Reconstructive Surgery [address] [place] [address] Chetna Chen APRN, DNP [address] [address] 12/29/2024 11:30 AM EDT Office Visit [facility] Breast Care Center [address] [facility], 2nd [place] [address] Inge López, HEAD MILLER [address] [facility] Jess Lopez [facility] [address] [place] [address] 12/30/2024 1:30 PM EDT Office Visit [facility] Plastic & Reconstructive Surgery [address] [place] [address] Jose Hyman MD [address] 2[address] [place] [address] 01/14/2025 11:00 AM EDT Appointment [facility] [address] [place] [address] 01/14/2025 2:00 PM EDT Office Visit [facility] [address] [facility], 2nd [place] [address] Inge López, HEAD MILLER [address] [facility] Jess Lopez [facility] [address] [place] [address] documented as of this encounter Visit Diagnoses [...] documented as of this encounter Care Teams High School Professional Relationship Specialty Start Date End Date Cinthya Cali PA [address] [place] [address] PCP - General 10/20/20 documented as of this encounter
--- OUTSIDE RECORDS SUMMARY | 2024-12-17 14:18 | XMS_ITS | Encounter Summary ---
Author Organization Healthcare Address [address] [place] [address] Care Team Providers Care Multimedia Artist Name Role Phone Cinthya Cali Primary Care Provider [phone] Encounter Details Date Type Department Care Team (Latest Contact Info) Description 12/13/2024 Travel Social History Tobacco Use Types Packs/Day [...] Description 12/22/2024 9:30 AM EDT Office Visit [facility] Plastic & Reconstructive Surgery [address] [place] [address] Chetna Chen APRN, DNP [address] [address] 12/29/2024 11:30 AM EDT Office Visit [facility] Breast Care Center [address] [facility], 2nd [place] [address] Inge López, CERTIFIED RESPIRATORY THERAPIST [address] [facility] Jess Lopez [facility] [address] [place] [address] 12/30/2024 1:30 PM EDT Office Visit [facility] Plastic & Reconstructive Surgery [address] [place] [address] Jose Hyman MD [address] 2[address] [place] [address] 01/14/2025 11:00 AM EDT Appointment [facility] [address] [place] [address] 01/14/2025 2:00 PM EDT Office Visit [facility] [address] [facility], 2nd [place] [address] Inge López, CERTIFIED RESPIRATORY THERAPIST [address] [facility] Jess Lopez [facility] [address] [place] [address] documented as of this encounter Visit Diagnoses [...] documented as of this encounter Care Teams Multimedia Artist Relationship Specialty Start Date End Date Cinthya Cali PA [address] [place] [address] PCP - General 10/20/20 documented as of this encounter
--- OUTSIDE RECORDS SUMMARY | 2024-12-17 14:18 | XMS_ITS | Encounter Summary ---
Author Organization Healthcare Address [address] [place] [address] Care Team Providers Care Vp Name Role Phone Cinthya Cali Primary Care Provider [phone] Encounter Details Date Type Department Care Team (Latest Contact Info) Description 12/15/2024 Travel Social History Tobacco Use Types Packs/Day [...] Ashish Mcclendon documented as of this encounter Plan of Treatment Upcoming Encounters Date Type Department Care Team (Late st Contact Info) Description 12/22/2024 9:30 AM EDT Office Visit [facility] Plastic & Reconstructive Surgery [address] [place] [address] Chetna Chen, LENO, DNP [address] [address] 12/29/2024 11:30 AM EDT Office Visit [facility] Breast [facility] [place] [address] [facility], [address]nd [place] [address] Inge López, PRINT MACHINE OPERATOR [address] [facility] [address] [place] [address] 12/30/2024 1:30 PM EDT Office Visit [facility] Plastic & Reconstructive Surgery [address] [place] [address] Jose Hyman MD [address] [address] 01/14/2025 11:00 AM EDT Appointment [facility] Radiology [address] [place] [address] 01/14/2025 2:00 PM EDT Office Visit [facility] Breast [facility] [place] [address] [facility], [address]nd [place] [address] Inge López, PRINT MACHINE OPERATOR [address] [facility] [address] [place] [address] documented as of this encounter Visit Diagnoses [...] documented as of this encounter Care Teams Vp Relationship Specialty Start Date End Date Cinthya Cali PA [address] [place] [address] PCP - General 10/20/20 documented as of this encounter
--- OUTSIDE RECORDS SUMMARY | 2024-12-17 14:18 | XMS_ITS | Encounter Summary ---
Author Organization [employer] ([place], [place], [place], [place]) Address [address] [place] [address] Care Team Providers Care Flying Teacher Name Role Phone Cinthya Cali PA-C Primary Care Provider [phone] Reason for Referral * Diagnostic X-Ray (Emergency) - New Request Specialty Diagnoses / Procedures Referred By Contgurpreet t Referred To Contact Diagnoses Other chest pain Procedures XR chest 2 views Cinthya Cali PA-C [address] [address] Phone: tel: fax: Referral ID Status Reason Start Date Expiration Date V isits Requested Visits Authorized [id number] New Request 04/13/2024 04/13/2025 1 1 Encounter Details Date Type Department Care Team (Late st Contact Info) Description 04/13/2024 Outside Orders [facility] Admitting [address] [place] [address] Cinthya Cali PA-C [address] [address] Other chest pain (Primary Dx); Fatigue Social History Tobacco Use Types Packs/Day Years [...] Date Rc rded Speak language other than Bulgarian at home Not on file 06/19/2023 Want [...] as of this encounter Plan of Treatment Not on file documented as of this encounter Results * XR chest 2 views (04/13/2024 1:34 PM EST) Anatomical Region Laterality Modality Chest X-Ray 04/13/2024 2:13 PM EST Impressions 04/13/2024 2:18 PM EST No acute cardiopulmonary process. Images reviewed, interpreted, and dictated by Dr. Latosha Valdovinos. Transcribed by Isabel Pike PA-C. Narrative 04/13/2024 2:18 PM EST TWO VIEW CHEST HISTORY: Precordial chest pain. COMPARISON: April 2018. FINDINGS: The heart is normal in size. The mediastinum is unremarkable. The lungs are clear. There is no pneumothorax. Procedure Note Becky Valdovinos MD - 04/13/2024 TWO VIEW CHEST HISTORY: Precordial chest pain. COMPARISON: April 2018. FINDINGS: The heart is normal in size. The mediastinum is unremarkable. The lungs are clear. There is no pneumothorax. IMPRESSION: No acute cardiopulmonary process. Images reviewed, interpreted, and dictated by Dr. Latosha Valdovinos. Transcribed by Isabel Pike PA-C. us Cinthya Cali PA-C IMG DIAGNOSTIC IMAGING ORDE GLO Final Result * (ABNORMAL) TSH (04/13/2024 1:25 PM EST) Pathologist [facility] TSH 3.964(H) 0.360 - 3.740 uIU/mL 04/13/2024 2:10 PM EST [facility] Blood Venipuncture / Unknown 04/13/2024 1:25 PM EST 04/13/2024 1:30 PM EST Narrative [facility] - 04/13/2024 2:10 PM EST Biotin supplements can cause clinically significant incorrect lab results. The FDA has seen an increase in the number of reported adverse events related to biotin interference with lab tests. us Cinthya Cali PA-C LAB BLOOD ORDERABLES Final Result Performing Organization Address [facility]/ZIP Co de Phone Number [facility] [address] [place] [address] * Sedimentation rate (04/13/2024 1:25 PM EST) [facility] Sed Rate 13 0 - 20 mm/HR 04/13/2024 1:54 PM EST [facility] Blood Venipuncture / Unknown 04/13/2024 1:25 PM EST 04/13/2024 1:30 PM EST Cinthya Cali PA-C LAB BLOOD ORDERABLES Final Result [facility] [address] [place] [address] * (ABNORMAL) Comprehensive metabolic panel (04/13/2024 1:25 PM EST) [facility] Sodium 139 136 - 145 meq/L 04/13/2024 2:11 PM EST [facility] Potassium 3.6 3.5 - 5.1 meq/L 04/13/2024 2:11 PM EST [facility] Chloride 105 98 - 107 meq/L 04/13/2024 2:11 PM [facility] CO2 26 21 - 32 meq/L 04/13/2024 2:11 PM [facility] Calcium 8.7 8.5 - 10.1 mg/dL 04/13/2024 2:11 PM [facility] Glucose 97 70 - 99 mg/dL 04/13/2024 2:11 PM [facility] BUN 9 7 - 18 mg/dL 04/13/2024 2:11 PM [facility] Creatinine 1.02 0.55 - 1.10 mg/dL 04/13/2024 2:11 PM [facility] BUN/Creatinine 9 04/13/2024 2:11 PM [facility] Albumin 3.8 3.4 - 5.0 g/dL 04/13/2024 2:11 PM [facility] Alkaline Phosphatase 81 46 - 116 U/L 04/13/2024 2:11 PM [facility] ALT 20 12 - 78 U/L 04/13/2024 2:11 PM [facility] AST 14(L) 15 - 37 U/L 04/13/2024 2:11 PM [facility] Total Bilirubin 0.5 0.2 - 1.0 mg/dL 04/13/2024 2:11 PM [facility] Protein, Total 7.9 6.4 - 8.2 gm/dL 04/13/2024 2:11 PM [facility] Anion Gap 12 - 04/13/2024 2:11 PM [facility] A/G Ratio 0.9 04/13/2024 2:11 PM [facility] Globulin 4.1 g/dL 04/13/2024 2:11 PM [facility] Osmolality Calc 276.1 2:11 PM [facility] eGFR (mL/min/1.73m2) >60 >=60 mL/min/1.7 3m2 04/13/2024 2:11 PM [facility] Comment:ESTIMATED GFR IS NOT ACCURATE CREATININE CLEARANCE IN PREDICTING GLOMERULAR FILTRATION RATE. ESTIMATED GFR IS NOT APPLICABLE FOR DIALYSIS PATIENTS. Blood Venipuncture / Unknown 04/13/2024 1:25 PM EST 04/13/2024 1:30 PM EST us Cinthya Cali PA-C LAB BLOOD ORDERABLES Final Result [facility] [address] [place], [place] [address] [phone] * (ABNORMAL) CBC with automated diff (04/13/2024 1:25 PM EST) WBC 8.1 4.8 - 10.8 K/ L 04/13/2024 1:34 PM [facility] RBC 4.98 3.50 - 5.20 M/ L 04/13/2024 1:34 PM [facility] Hemoglobin 13.1 11.7 - 15.8 GM/DL 04/13/2024 1:34 PM [facility] Hematocrit 40.8 35.0 - 47.0 % 04/13/2024 1:34 PM [facility] MCV 82 81 - 101 fL 04/13/2024 1:34 PM [facility] MCH 26.3(L) 27.0 - 34.0 pg 04/13/2024 1:34 PM [facility] MCHC 32.1 32.0 - 36.0 GM/DL 04/13/2024 1:34 PM [facility] RDW 14.2 11.5 - 14.5 % 04/13/2024 1:34 PM [facility] Platelets 334 150 - 400 K/CU MM 04/13/2024 1:34 PM [facility] MPV 9.7 9.4 - 12.4 fL 04/13/2024 1:34 PM [facility] Nucleated Red Blood Cell 0.0 0 - 0.2 % 04/13/2024 1:34 PM [facility] % Neutros 59 37 - 80 % 04/13/2024 1:34 PM [facility] % Lymphs 34 10 - 50 % 04/13/2024 1:34 PM [facility] % Monos 5 5 - 13 % 04/13/2024 1:34 PM [facility] % Eos 1 0 - 7 % 04/13/2024 1:34 PM [facility] % Baso 1 0 - 3 % 04/13/2024 1:34 PM [facility] NRBC Absolute <0.01 0 - 0.012 K/ul 04/13/2024 1:34 PM [facility] # Neutros 4.82 2.00 - 6.90 K/ L 04/13/2024 1:34 PM [facility] # Lymphs 2.75 0.60 - 3.40 K/ L 04/13/2024 1:34 PM [facility] # Monos 0.41 0.00 - 0.90 K/ L 04/13/2024 1:34 PM [facility] # Eos 0.07 0.00 - 0.70 K/ L 04/13/2024 1:34 PM [facility] # Baso 0.04 0.00 - 0.20 K/ L 04/13/2024 1:34 PM [facility] Immature Granulocytes-Re lative 0.10 % 04/13/2024 1:34 PM [facility] # IG 0.01(H) 0.00 - 0.00 K/uL 04/13/2024 1:34 PM [facility] Blood Venipuncture / Unknown 04/13/2024 1:25 PM EST 04/13/2024 1:30 PM [facility] - 04/13/2024 1:34 PM EST When CBC w/ Auto Diff is ordered the lab will add a Manual Differential as a quality check at no additional charge if: Lymphocytes greater than seventy five percent with normal or increased WBC Monocytes greater than Fifteen percent Basophil greater than four percent Bands >10% or several immature myeloids are seen on scan Blast? Flag noted Atypical Lymph flag noted Cinthya DAWKINS-C LAB BLOOD ORDERABLES Final Result Performing Organization Address City/[facility]/ZIP Co de Phone Number [facility] [address] [place] [address] * AMYLASE (04/13/2024 1:25 PM EST) [facility] Amylase 50 25 - 115 U/L 04/13/2024 2:11 PM EST [facility] Blood Venipuncture / Unknown 04/13/2024 1:25 PM EST 04/13/2024 1:30 PM EST Cinthya DAWKINS-C LAB BLOOD ORDERABLES Final Result Performing Organization Address [facility] Co ok Phone Number [facility] [address] [place] [address] * Magnesium (04/13/2024 1:25 PM EST) [facility] Magnesium 2.1 1.8 - 2.4 mg/dL 04/13/2024 2:11 PM EST [facility] Blood Venipuncture / Unknown 04/13/2024 1:25 PM EST 04/13/2024 1:30 PM EST Cinthya DAWKINS-C LAB BLOOD ORDERABLES Final Result Performing Organization Address [facility]/ZIP Co de Phone Number [facility] [address] [place] [address] * D-dimer (04/13/2024 1:25 PM EST) [facility] D-Dimer, Quant (SJMS SJE) 325.64 <=500.00 ng/mL FEU 04/13/2024 2:18 PM EST [facility] Comment: A normal D-dimer result <500 ng/mL (FEU) has a negative predictive value of approximately 95% for the exclusion of acute pulmonary embolism (PE) or deep vein thrombosis when there is low or moderate pretest PE probability. D-dimer Normal Rates First trimester: 50-950 ng/mL (FEU) Second trimester: 302-1290 ng/mL (FEU) Third trimester: 130-1700 ng/mL (FEU) Blood Venipuncture / Unknown 04/13/2024 1:25 PM EST 04/13/2024 1:30 PM EST Cinthya Cali PA-C LAB BLOOD ORDERABLES Final Result Performing Organization Address City/[facility] Co de Phone Number [facility] [address] [place] [address] * (ABNORMAL) High Sensitivity Troponin I (04/13/2024 1:25 PM EST) Troponin I High Sensitivity (pg/mL) <4(L) 4 - 60.3 pg/mL 04/13/2024 2:10 PM EST [facility] Comment: Troponin Result (pg/mL) *Interpretation 4-60.3 *Normal; less than 99th percentile of normal range >60.3 *Abnormal; greater than 99th percentile of normal range Biotin specimen concentration >300 ng/mL may lead to falsely depressed results for patient samples. Do not use this test for renal dysfunction patients (eGFR <60) unless it is confirmed that the patient is not taking Biotin. Blood Venipuncture / Unknown 04/13/2024 1:25 PM EST 04/13/2024 1:30 PM EST Cinthya Cali PA-C LAB BLOOD ORDERABLES Final Result Performing Organization Address City/[facility]/ZIP Co de Phone Number [facility] [address] [place] [address] documented in this encounter Visit Diagnoses Diagnosis Other chest pain- Primary Fatigue Other malaise and fatigue Other chest pain documented in this encounter Care Teams Flying Teacher Relationship Specialty Start Date End Date Cinthya Cali PA-C [address] [facility] [address] [place] [address] PCP - General Family Medicine 06/03/22 documented as of this encounter
--- OUTSIDE RECORDS SUMMARY | 2024-12-17 14:18 | XMS_ITS | Referral Summary ---
Author Organization [employer] ([place], [place], [place], [place]) Address [address] [place] [address] Care Team Providers Care City Council Member Name Role Phone Cinthya Cali PA-C Primary Care Provider [phone] Allergies No known active allergies Social History [...] Date Rc rded Speak language other than Indonesian at home Not on file 06/19/2023 Want [...] 06/03/2022 6:10 PM EST Plan of Treatment Not on file Insurance Care Teams City Council Member Relationship Specialty Start Date End Date Cinthya Cali PA-C [address] [phone] PCP - General Family Medicine 06/03/22
--- OUTSIDE RECORDS SUMMARY | 2024-12-17 14:18 | XMS_ITS | Encounter Summary ---
Author Organization [facility] Address [address] [place] [address] Care Team Providers Care Licensed Physical Therapist Name Role Phone Cinthya Cali Primary Care Provider [phone] Encounter Details Date Type Department Care Team (Late st Contact Info) Description 11/08/2024 Telephone [facility] Plastic & Reconstructive Surgery [address] [place] [address] Chetna Chen APRN, SHAILESH [address] [address] Social History Tobacco Use Types Packs/Day Years [...] on file documented as of this encounter Miscellaneous Notes * Addendum Note - Chetna Chen APRN, DNP - 12/07/2024 8:46 AM EDTAddended by: CHETNA CHEN on: 12/07/2024 08:46 AM Modules accepted: Orders * Telephone Encounter - Chetna Chen APRN, DNP - 11/08/2024 2:25 PM EDT Called patient for preoperative appointment and concern for ongoing nicotine use. Patient states she quit smoking cigarettes on 10/17/24 cold turkery without nicotine replacement therapy. Preoperative appointment made. Chetna Chen APRN documented in this encounter Plan of Treatment Upcoming Encounters Date Type Department Care Team ([facility] st Contact Info) Description 12/22/2024 9:30 AM EDT Office Visit [facility] Plastic & Reconstructive Surgery [address] [place] [address] Chetna Chen APRN, DNP [address] [address] 12/29/2024 11:30 AM EDT Office Visit [facility] Breast [facility] [place] [address] [facility], [address]nd [place] [address] Inge López, TELEGRAPH SERVICE RATER [address] [facility] [address] [place] [address] 12/30/2024 1:30 PM EDT Office Visit [facility] Plastic & Reconstructive Surgery [address] [place] [address] Jose Hyman MD [address] [address] 01/14/2025 11:00 AM EDT Appointment [facility] Radiology [address] [place] [address] 01/14/2025 2:00 PM EDT Office Visit [facility] [place] [address] [facility], [address]nd [place] [address] Inge López, TELEGRAPH SERVICE RATER [address] [facility] [address] [address] [place] [address] documented as of this encounter Results * Nicotine and Cotinine, Urine (12/09/2024 2:27 PM EDT) Nicotine, Urine <5 <5 ng/mL 5 9:24 AM EDT [facility] Cotinine, Urine <5 <5 ng/mL 5 9:24 AM EDT [facility] Anabasine, Urine <2 <2 ng/mL 12/12/2024 9:24 AM EDT [facility] Urine Urine specimen obtained by clean catch procedure / Unknown Non-blood Collection / Unknown 12/09/2024 2:27 PM EDT 12/09/2024 2:27 PM EDT Narrative [facility] - 12/12/2024 9:24 AM EDT Test performed by LC-MS/MS at the [facility]. This test was developed and its performance characteristics determined by [facility]. It has not been cleared or approved by the FDA. The laboratory is regulated under CLIA as qualified to perform high-complexity testing. This test is used for clinical purposes. Chetna Chen APRN, DNP LAB URINE ORDERABLES F inal Result [facility] [address] [place] [address] documented in this encounter Visit Diagnoses Diagnosis At high risk for breast cancer- Primary Tobacco use disorder documented in this encounter Additional Health Concerns Assessment Noted Time PHQ-9 Depression Total Score: 2 07/09/19 25 2:29 PM EST A fall risk assessment has been complete d for the patient 10/19/2024 3:44 PM EDT A Body Mass Index follow-up plan has been documented for the patient 08/18/2024 3:04 PM EDT documented as of this encounter Care Teams Licensed Physical Therapist Relationship Specialty Start Date End Date Cinthya Cali PA [address] [place] [address] PCP - General 10/20/20 documented as of this encounter
--- OUTSIDE RECORDS SUMMARY | 2024-12-17 14:19 | XMS_ITS | Encounter Summary ---
Author Organization [facility] Address [address] [place] [address] Care Team Providers Care Welcome [facility] Agent Name Role Phone Cinthya Cali Primary Care Provider [phone] Encounter Details Date Type Department Care Team (Late st Contact Info) Description 12/17/2024 [facility] Plastic & Reconstructive Surgery [address] [place] [address] Jillian Redding LPN [facility] PLASTIC SURGERY CLINIC Social History Tobacco Use Types Packs/Day Years [...] as of this encounter Miscellaneous Notes * Telephone Encounter - Jillian Redding LPN - 12/17/2024 12:12 PM EDT We received a call from the patient's [id number]. She stated that they called the breast center and were told to call Plastics. [id number] states the patient feels like she can't breathe and issmothering. Advised her to take the patient to their local ED for evaluation. documented in this encounter Plan of Treatment Upcoming Encounters Date Type Department Care Team ([facility] st Contact Info) Description 12/22/2024 9:30 AM EDT Office Visit [facility] Plastic & Reconstructive Surgery [address] [place] [address] Chetna Chen, LENO, DNP [address] [phone] 12/29/2024 11:30 AM EDT Office Visit [facility] Breast Care [place] [address] [facility], [address] [place] [address] Inge López, COMMUNICATIONS TECHNOLOGIST [address] [facility] [place] [address] [phone] 12/30/2024 1:30 PM EDT Office Visit [facility] Plastic & Reconstructive Surgery [address] [place] [address] Jose Hyman MD [address] [address] 01/14/2025 11:00 AM EDT Appointment [facility] Radiology [address] [place] [address] 01/14/2025 2:00 PM EDT Office Visit [facility] Breast Care [place] [address] [facility], [address] [place] [address] Inge López, COMMUNICATIONS TECHNOLOGIST [address] [facility] Jessica [facility] [address] [place] [address] documented as of this encounter Visit Diagnoses [...] documented as of this encounter Care Teams Welcome Center Agent Relationship Specialty Start Date End Date Cinthya Cali PA [address] [place] [address] PCP - General 10/20/20 documented as of this encounter
--- OUTSIDE RECORDS SUMMARY | 2024-12-17 14:19 | XMS_ITS | Encounter Summary ---
Author Organization [facility] Address [address] [place] [address] Care Team Providers Care Federal Mediation Commissioner Name Role Phone Cinthya Cali Primary Care Provider [phone] Reason for Referral * Consultation (Routine) - Denied Specialty Diagnoses / Procedures Referred By Contac t Referred To Contact Genetics Diagnoses Family history of malignant neoplasm of breast Cinthya Cali PA [address] [place] [address] Phone: tel: fax: [facility] Genetic Counseling [address] [facility], 1st [place] [address] Phone: tel: fax: Referral ID Status Reason Start Date Expiration Date V isits Requested Visits Authorized [id number] Denied Specialty Services Required 05/22/2023 11/20/2024 1 0 Encounter Details Date Type Department Care Team (Late st Contact Info) Description 05/22/2023 Community Orders [facility] [address] [place] [address] Cinthya Cali PA [address] [place] [phone] Family history of malignant neoplasm of breast (Primary Dx) Social History Tobacco Use Types Packs/Day Years Used Date Smoking Tobacco: Former Alcohol Use Standard Drinks/Week Comments No 0 (1 standard drink = 0.6 oz pur e alcohol) Comments Unknown Sex and Gender Information Value Date Recorded Sex Assigned at Not on file Legal Sex Female 8:45 PM EDT Gender Identity Not on file Sexual Orientation Not on file documented as of this encounter Plan of Treatment Upcoming Encounters Date Type Department Care Team (Late st Contact Info) Description 12/22/2024 9:30 AM EDT Office Visit [facility] Plastic & Reconstructive Surgery [address] [place] [phone] Chetna Chen, FIELD CROP HARVEST CONTRACTOR, DNP [address] [phone] 12/29/2024 11:30 AM EDT Office Visit [facility] Breast [facility] [place] [address] [facility], [address] [place] [address] Inge López, FIELD CROP HARVEST CONTRACTOR [address] [facility] [address] [place] [phone] 12/30/2024 1:30 PM EDT Office Visit [facility] Plastic & Reconstructive Surgery [address] [place] [phone] Jose Hyman MD [address] [address] 01/14/2025 11:00 AM EDT Appointment [facility] Radiology [address] [place] [address] 01/14/2025 2:00 PM EDT Office Visit [facility] Breast [facility] [place] [address] [facility], [address] [place] [address] Inge López, FIELD CROP HARVEST CONTRACTOR [address] [facility] [address] [place] [phone] Scheduled Referrals Name Type Priority Associated Diagnoses Order Schedule Ambulatory Referral to Oncology Genetics Outpatient Referral Routine Family history of malignant neoplasm of breast Expected: 05/22/2023 (Approximate), Expires: 11/20/2024 documented as of this encounter Visit Diagnoses Diagnosis Family history of malignant neoplasm of breast- Primary documented in this encounter Care Teams Federal Mediation Commissioner Relationship Specialty Start Date End Date Cinthya Cali PA [address] [place] [address] PCP - General 10/20/20 documented as of this encounter
--- OUTSIDE RECORDS SUMMARY | 2024-12-17 14:19 | XMS_ITS | Clinical Summary ---
Author Organization [facility] Address [address] [place] [address] Care Team Providers Care Auto Clocks Repairer Name Role Phone Cinthya Cali Primary Care Provider Allergies Active Allergy Reactions Criticality Noted Date Comments Asumotrnn-Ekopajmq-Qo Hives Medium 08/04/2023 Medications clonazePAM (KlonoPIN) 0.5 MG tablet Take 1 tablet by mouth 2 times a day. 06/07/20 Active sertraline (Zoloft) 50 MG tablet Take 1.5 tablets by mouth daily. Active montelukast (Singulair) 10 MG tablet Take 1 tablet by mouth nightly. 06/07/20 20 Active fexofenadine (Luzma) 180 MG tablet Take 1 tablet by mouth daily. 05/13/20 23 Active omeprazole (PriLOSEC) [address] capsule Take 1 capsule by mouth daily. 05/13/20 23 Active Fluticasone Propionate (FLONASE ALLERGY RELIEF NA) Inhale 1 spray in the morning. 06/07/20 20 Active levothyroxine (Synthroid, Levoxyl) 50 MCG tablet Take 1 tablet by mouth daily. 04/16/20 24 Active ipratropium-albute rol (Duo-Neb) 0.5-2.5 mg/3 mL nebulizer solution Take by nebulization as needed. 05/24/20 24 Active oxyCODONE (Roxicodone) 5 MG immediate release tablet Take 1 tablet by mouth every 6 hours as needed for severe pain for up to 10 doses. 10 tablet 12/17/19 25 Active naloxone (Narcan) 4 mg/0.1 mL nasal spray 1. Give 1 spray in nostril for no/slow breathing or cannot wake after opioid use 2. Call 911 3. Repeat in other nostril if symptoms continue 1 each 12/17/19 25 Active methocarbamol (Robaxin) 500 MG tablet Take 1 tablet by mouth 3 times a day as needed for muscle spasms for up to 10 doses. 10 tablet 12/17/19 25 Active ondansetron ODT (Zofran-ODT) 4 MG disintegrating tablet Dissolve 1 tablet on the tongue every 6 hours as needed for nausea or vomiting. 20 tablet 12/17/19 25 Active cephalexin (Keflex) 500 MG capsuleIndications :At high risk for breast cancer Take 1 capsule by mouth 4 times a day for 7 days. 28 capsule 12/17/19 25 025 Active albuterol 108 (90 Base) MCG/ACT inhaler Inhale 2 puffs every 4 hours as needed for wheezing. 05/13/20 23 025 Discontin ued(Enter ed in Error) ondansetron (Zofran) 4 MG tablet 025 Discontin ued(Enter ed in Error) Active Problems Problem Noted Date Diagnosed Date At high risk for breast cancer 10/19/2024 Tobacco use disorder 08/04/2023 Encounters Date Type Department Care Team Description 12/17/[address] [facility] [address] [place] [phone] Jillian Redding LPN 12/15/2024 8:20 AM EDT Anesthesia Event [facility] [address] [place] [address] Norman Pulido CRNA 12/15/2024 8:15 AM EDT - 12/15/2024 3:00 PM EDT Surgery [facility] [address] [place] [phone] Chely Woodall MD Bilateral prophy skin sparing mastectomy/recon [49720 (CPT )] 12/15/2024 5:28 AM EDT - 12/16/2024 10:29 AM EDT Hospital Encounter [facility]patient [facility] [address] [place] [address] Chely Woodall MD At high risk for breast cancer Discharge Disposition: Home or Self Care 12/15/2024 Travel 12/13/2024 Travel 12/09/2024 1:30 PM EDT Office Visit [facility] [address] [place] [address] Jose Hyman MD At high risk for breast cancer (Primary Dx) 12/09/2024 Travel 12/01/2024 11:30 AM EDT Office Visit [facility] [address] [facility] 2nd [place] [phone] Inge López APRN At high risk for breast cancer (Primary Dx); Family history of malignant neoplasm of breast 12/01/2024 Travel 11/08/[address] [facility] [address] [place] [address] Chetna Chen APRN, DNP 10/19/2024 3:30 PM EDT Office Visit [facility] [address] [facility] [place] [address] Chely Woodall MD At high risk for breast cancer 10/19/2024 Travel 09/27/2024 Telephone [facility] Breast Care [facility] [address] [place] [address] Chely Woodall MD from Last 3 Months Family History Medical History Relation Name Comments Hypertension Father Moises Mental illness Father Moises Breast cancer Maternal Cousin Cancer Maternal Grandfather Jovan Chemotherapy Maternal Grandfather Jovan Lung cancer Maternal Grandfather Jovan Cancer Maternal Grandmother Elina Colon cancer Maternal Grandmother Elina Ovarian cancer Maternal Grandmother Elina Pancreatic cancer Maternal Grandmother Elina Cancer Mother Michelle Chemotherapy Mother Michelle Diabetes Mother Michelle Heart disease Mother Michelle Hypertension Mother Michelle Kidney disease Mother Michelle Mental illness Mother Michelle Ovarian cancer Mother Michelle Radiation Therapy Mother Michelle Rectal cancer Mother Michelle Breast cancer Mother's Sister Breast cancer Other maternal great aunt Diabetes Paternal Grandmother Shauna Hypertension Paternal Grandmother Shauna Skin cancer Paternal Grandmother Shauna Breast cancer Sister Charline Cancer Sister Charline Chemotherapy Sister Charline Radiation Therapy Sister Charline Relation Name Status Comments Father Moises Maternal Cousin Maternal Grandfather Jovan Maternal Grandmother Elina Mother Michelle Mother's Sister Other Paternal Grandmother Shauna Sister Charline Social History Tobacco Use Types Packs/Day Years [...] 4 oz) 12/16/2024 6:28 AM EDT Height 165.1 cm (5' 5 ) 12/09/2024 1:15 PM EDT Body Mass Index 34.16 12/09/2024 1:15 PM EDT Plan of Treatment Upcoming Encounters Date Type Department Care Team (Late st Contact Info) Description 12/22/2024 9:30 AM EDT Office Visit [facility] [address] [place] [phone] Chetna Chen APRN, DNP [address] [place] [phone] 12/29/2024 11:30 AM EDT Office Visit [facility] [address] [facility]nd [place] [address] Inge López, PAYMENT POSTER [address] [facility] Jess Lopez [facility] [address] [place] [phone] 12/30/2024 1:30 PM EDT Office Visit [facility] [address] [place] [address] Jose Hyman MD [address] [place] [address] 01/14/2025 11:[address] [facility] Radiology [address] [place] [address] 01/14/2025 2:00 PM EDT Office Visit [facility] [address] [facility]nd [place] [address] Inge López, PAYMENT POSTER [address] [facility] Jess Lopez [facility] [address] [place] [phone] Health Maintenance Due Date Last Done Comments [facility]-/Child/Adol SDOH Screenings 1989 [facility]-Varicella Vaccines (1 of 2 - 13+ 2-dose series) 2002 HPV Vaccines (1 - 3-dose series) 2004 [facility]- SDOH Screenings 2007 [facility]-Adult SDOH Screenings 2007 [facility]-DTaP,Tdap,and Td Vaccines (1 - Tdap) 2008 [facility]-Hepatitis B Vaccines (1 of 3 - 19+ 3-dose series) 2008 [facility]-Pap Smear 2010 [facility]-Cervical Cancer Screening 2019 [facility]-HPV/Cotest 2019 [id number]-91 Vaccine (3 - Moderna risk series) 08/25/2020 07/28/2020, 06/29/2020 [facility]-Influenza Vaccine (#1) 02/07/202503/25, 03/07/2023, 03/27/2022, Additional history exists [facility]-Depression Screening 07/09/2025 07/09/2024, 06/11 [facility]-Zoster Vaccines (1 of 2) 2039 [facility]-Hepatitis A Vaccines Aged Out 06/03/2018, 11/07 No longer eligible based on patient's age to complete this topic [facility]-HIV Screening Completed 04/01/2024 [facility]-Hepatitis C Screening Completed 04/01/2024 [facility]-Obesity Intervention Completed 025, 10/20/2024, 08/18/2024, Additional history exists [facility]-HIB Vaccines Aged Out No longer e ligible based on patient's age to complete this topic [facility]-IPV Vaccines Aged Out No longer e ligible based on patient's age to complete this topic [facility]-Pneumococcal Vaccine: Pediatrics (0 to 5 Years) and At-Risk Patients (6 to 49 Years) Aged Out No longer eligible based on patient's age to complete this topic [facility]-Rotavirus Vaccines Aged Out No lo nger eligible based on patient's age to complete this topic Medical Devices Implanted Type Area Manager University Device Identifier Shelf Expiration Date Model / Serial / Lot Assistant Sales Center Manager Breast Allox2 Smooth Full Ht 360-430cc - [id number] Implanted:Qty: 1 on 12/07/2024 by Jose Hyman MD at [facility] Inc-[id number] 01/01/2028 ALLOX2-FH1 3SE / [id number] / [id number] Dermacell Contour Microperf 8x16 - [id number] - [id number] Implanted:Qty: 1 on 12/15/2024 by Jose Hyman MD at [facility] [facility]-[id number] 05/20/2028 [id number] / [id number] / [id number] Dermacell Contour Microperf 8x16 - [id number] - [id number] Implanted:Qty: 1 on 12/15/2024 by Jose Hyman MD at [facility] [employer] [facility]-[id number] 05/20/2028 [id number] / [id number] / [id number] Graft Nerve Avance 70mm 2-3mm - [id number] Implanted:Qty: 1 on 12/15/2024 by Jose Hyman MD at [facility] [employer]-[id number] 01/06/2027 [id number] / / [id number] Graft Nerve Avance 70mm 2-3mm - [id number] Implanted:Qty: 1 on 12/15/2024 by Jose Hyman MD at [facility] [employer]-[id number] 12/06/2026 [id number] / / [id number] Assistant Sales Center Manager Breast Allox2 Smooth Full Ht 360-430cc - [id number] - [id number] Implanted:Qty: 1 on 12/15/2024 by Jose Hyman MD at [facility] Right: Breast [employer]-[id number] 03/21/2029 ALLOX2-FH1 3SE / [id number] / Procedures Procedure Name Priority Date/Time Associated Diagnosis Comments ANESTHESIA PERIPHERAL IV PLACEMENT Routine 12/15/2024 9:14 AM EDT PB ANESTHESIA PLACEHOLDER Routine 12/15/2024 8:26 AM EDT OK AN ELECTIVE ENDOTRACHEAL AIRWAY Routine 12/15/2024 8:26 AM EDT POCT , URINE Routine 12/15/2024 6:55 AM EDT NICOTINE AND METABOLITE, URINE (INHOUSE) STAT 12/09/2024 2:27 PM EDT At high risk for breast cancer HEPATITIS C ANTIBODY - ED W/REFLEX TO HCV QUANT PCR STAT 04/01/2024 9:46 AM EDT ED HIV 1/2 ANTIBODY/ANTIGEN SCREEN WITH REFLEX TO HIV I/II DIFFERENTIATION STAT 04/01/2024 9:46 AM EDT from Last 3 Months or Most Recently Relevant to Health Maintenance Results * Peripheral IV (12/15/2024 9:14 AM EDT) Narrative Norman Pulido CRNA - 12/15/2024 9:14 AM EDT Norman Pulido CRNA 12/15/2024 9:14 AM Peripheral IV Placement Needle size: 18 G Location: hand Site prep: alcohol Technique: anatomical landmarks Attempts: 1 Kasey Smith MD ANESTHESIA ORDERABLES Final R esult * OK AN ELECTIVE ENDOTRACHEAL AIRWAY, PB ANESTHESIA PLACEHOLDER (12/15/2024 8:26 AM EDT) Narrative Norman Pulido CRNA - 12/15/2024 8:26 AM EDT Norman Pulido CRNA 12/15/2024 9:14 AM Airway Date/Time: 12/15/2024 8:26 AM Reason: elective Airway not difficult General Information and Staff Patient location during procedure: OR CARNIVAL WORKER: Norman Pulido CRNA Performed: CARNIVAL WORKER Patient Condition Indications for airway management: anesthesia [...] MD ANESTHESIA ORDERABLES Final R esult * POCT , URINE (12/15/2024 6:55 AM EDT) Pathologist [facility] POCT Test, Urine Negative Males and Non- Females: Negative 12/15/2024 3:56 PM EDT [facility] Box Office Attendant ID Nieves Bailey 12/15/2024 3:56 PM EDT HEALTHCARE LAB Device ID [id number] 12/15/2024 3:56 PM EDT [facility] Urine Urine specimen obtained by clean catch procedure / Unknown 12/15/2024 6:55 AM EDT 12/15/2024 3:56 PM EDT Chely Woodall MD LAB POINT OF CARE TE ST DOCKED DEVICE UNSOLICITED RESULTS Final Result Performing Organization Address City/[facility]/ZIP Co de Phone Number [facility] [address] [place] [address] * Nicotine and Cotinine, Urine (12/09/2024 2:27 PM EDT) Nicotine, Urine <5 <5 ng/mL 9:24 AM EDT [facility] Cotinine, Urine <5 <5 ng/mL 9:24 AM EDT [facility] Anabasine, Urine <2 <2 ng/mL 12/12/2024 9:24 AM EDT [facility] Urine Urine specimen obtained by clean catch procedure / Unknown Non-blood Collection / Unknown 12/09/2024 2:27 PM EDT 12/09/2024 2:27 PM EDT Narrative [facility] - 12/12/2024 9:24 AM EDT Test performed by LC-MS/MS at the [facility]. This test was developed and its performance characteristics determined by [facility]. It has not been cleared or approved by the FDA. The laboratory is regulated under CLIA as qualified to perform high-complexity testing. This test is used for clinical purposes. Chetna Chen PAYMENT POSTER, DNP LAB URINE ORDERABLES F inal Result Performing Organization Address City/[facility] Co de Phone Number [facility] [address] [place] [phone] * ED HIV 1/2 Antibody/Antigen Screen w/Reflex to HIV 1/2 Differentiation (04/01/2024 9:46 AM EDT) HIV 1 & 2 Antibody/Antigen Screen Non Reactive Non Reactive 04/01/2024 10:37 AM EDT [facility] Comment:Screening for HIV 1 & 2 antibodies, and P24 antigen is NONREACTIVE. No confirmatory testing is required. Blood Venous blood specimen / Unknown Venipuncture / Unknown 04/01/2024 9:46 AM EDT 04/01/2024 9:58 AM EDT us Ubaldo Zamora MD LAB BLOOD ORDERABLES Final Result [facility] [address] [place] [address] * Hepatitis C Antibody - ED (04/01/2024 9:46 AM EDT) Hepatitis C Antibody Negative Negative 04/01/2024 10:37 AM EDT [facility] Blood Venous blood specimen / Unknown Venipuncture / Unknown 04/01/2024 9:46 AM EDT 04/01/2024 9:58 AM EDT us Ubaldo Zamora MD LAB BLOOD ORDERABLES Final Result Performing Organization Address City/[facility]/ZIP Co de Phone Number [facility] [address] [place] [address] from Last 3 Months or Most Recently Relevant to Health Maintenance Insurance Advance Directives Documents on File Type Date Recorded Patient Block Feeder Expl anation Advance Directives and Living Will 12/15/2024 * Full Code (Latest Code Status on File) Date Activated Date Inactivated Comments 12/15/2024 2:49 PM 12/16/2024 12:29 PM Question Answer Comments I have reviewed the capacity from the link above and, if needed, have updated to appropriate status: Yes Care Teams Auto Clocks Repairer Relationship Specialty Start Date End Date Cinthya Cali PA [address] [place], [place] [phone] PCP - General 10/20/20
--- OUTSIDE RECORDS SUMMARY | 2024-12-17 14:19 | XMS_ITS | Patient Health Record ---
Author Organization [facility] Address [address] [place] [address] Care Team Providers Care Signal And Communications Maintainer Name Role Phone PARVIN CAMPBELL Primary Care Provider [phone] Reason For Referral No Information Medications Medication SIG (Take, Route, Fr equency, Duration) Notes Start Date End Date Status Zanaflex 2 mg 1 (one) tablet oral oral 2 times a day for thirty 10/22/2012 Active Plan Of Treatment No Information
--- OUTSIDE RECORDS SUMMARY | 2024-12-17 14:19 | XMS_ITS | Encounter Summary ---
Author Organization Healthcare Address [address] [place] [address] Care Team Providers Care Paper Slitter Name Role Phone Cinthya Cali Primary Care Provider [phone] Encounter Details Date Type Department Care Team (Late Contact Info) Description 07/11/2023 Community [facility] [address] [place] [address] Cinthya Cali PA [address] [place] [phone] Social History Tobacco Use Types Packs/Day Years Used Date Smoking Tobacco: Former Smokeless Tobacco: Never Alcohol Use Standard Drinks/Week Comments No 0 (1 standard drink = 0.6 oz pur e alcohol) Comments No Sex and Gender Information Value Date Recorded Sex Assigned at Not on file Legal Sex Female 8:45 PM EDT Gender Identity Not on file Sexual Orientation Not on file documented as of this encounter Plan of Treatment Upcoming Encounters Date Type Department Care Team (Late Contact Info) Description 12/22/2024 9:30 AM EDT Office Visit [facility] Surgery [address] [place] [phone] Chetna Chen APRN, DNP [address] [address] 12/29/2024 11:30 AM EDT Office Visit [facility] Breast Care [facility] [address] [facility]nd [place] [address] Inge López, DRAFTING ENGINEER [address] [facility] Jess Lopez [facility] [address] [place] [address] 12/30/2024 1:30 PM EDT Office Visit [facility] Surgery [address] [place] [phone] Jose Hyman MD [address] [place] [address] 01/14/2025 11:00 AM EDT [facility]ointment [facility] [address] [place] [address] 01/14/2025 2:00 PM EDT Office Visit [facility] [address] [place] [address] Inge López, DRAFTING ENGINEER [address] [facility] [address] [place] [address] documented as of this encounter Visit Diagnoses Not on filedocumented in this encounter Care Teams Paper Slitter Relationship Specialty Start Date End Date Cinthya Cali PA [address] [place] [id number] PCP - General 10/20/20 documented as of this encounter
[2024-12-17 14:21] LABS: Sodium 141 mmol/L (136-145)
[2024-12-17 14:24] LABS: Hematocrit 34.4 % (37.0-47.0); Hemoglobin 10.7 g/dL (12.2-16.2); Immature Granulocytes % 0 %; Mean Corpuscular HGB Conc 31.1 g/dL (31.8-35.4); Mean Corpuscular Hemoglobin 27.0 pg (27.0-31.2); Mean Corpuscular Volume 86.6 fl (81-99); Nucleated Red Blood Cells % 0 %; Platelet Count 337 K/mm3 (142-424); Red Blood Count 3.97 M/mm3 (4.20-5.40); Red Cell Distribution Width-SD 46.6 fL; White Blood Count 8.0 K/mm3 (4.8-10.8)
[2024-12-17 14:39] LABS: Troponin I < 0.01 ng/ml (0.00-0.034)
[2024-12-17 14:49] LABS: HCG Qualitative, Serum Negative (Negative)
[2024-12-17] MEDS: ONDANSETRON 4MG/2ML VIAL 4 MG IV (14:50)
[2024-12-17 14:55] LABS: Albumin Level 4.1 g/dl (3.5-5.0); Chloride 103 mmol/L (98-107); Potassium 3.3 mmoL/L (3.5-5.1)
[2024-12-17 14:58] LABS: Alanine Aminotransferase 16 U/L (12-78); Albumin/Globulin Ratio 1.4 (1.1-1.8); Alkaline Phosphatase 58 U/L (38-126); Anion Gap 15.3 mEq/L (5-15); Aspartate Amino Transferase 29 U/L (14-36); Bilirubin,Total 0.4 mg/dl (0.2-1.3); Blood Urea Nitrogen 7 mg/dl (7-17); Calcium 8.8 mg/dl (8.4-10.2); Carbon Dioxide 26 mmol/L (22.0-30.0); Creatinine Clearance Estimated 135 mL/min (50-200); Creatinine,Serum 0.80 mg/dl (0.52-1.04); Estimated Glomerular Filt Rate 82 ml/min (>60); GFR (African American) 99 ML/MIN (>60); Globulin 3.0 g/dL (1.3-3.2); Glucose 102 mg/dl (74-100); Total Protein,Serum 7.1 g/dl (6.3-8.2)
[2024-12-17] MEDS: IOPAMIDOL-370 (76%);100ML BOTTLE 70 ML IV (14:58)
[2024-12-17] MEDS: SODIUM CHLORIDE 0.9% 10ML SYR (RAD ONLY) 10 ML IV (14:58)
[2024-12-17] MEDS: 0.9 % SODIUM CHLORIDE 50 ML VIAL IV (14:58)
[2024-12-17 15:15] VITALS: BP 117/73; PULSE 82; O2SAT 99
[2024-12-17 15:30] VITALS: BP 117/73; PULSE 69; O2SAT 100
[2024-12-17 16:00] VITALS: PULSE 77; O2SAT 99
[2024-12-17 16:30] VITALS: PULSE 82; O2SAT 100
--- NOTE | 2024-12-17 16:40 | HMH.EDCP ---
Discharge Plan Disposition Patient Disposition: Home, Self-Care Condition: Good Prescriptions Prescriptions: No Action clonazepam 0.5 mg tablet 0.5 mg PO BID Patient Comments: TAKE ONE TABLET BY MOUTH TWICE DAILY omeprazole 40 mg capsule,delayed release(DR/EC) 40 mg PO DAILY montelukast 10 mg tablet 10 mg PO DAILY sertraline 50 mg tablet 50 mg PO DAILY nitrofurantoin monohyd/m-cryst 100 mg capsule 100 mg PO BID 5 Days Qty: 10 0RF Rx Instructions: must administer with a meal/food Referrals Follow up/Referrals: Provider,Referral, MD [Primary Care Provider, Medical] - See instructions Activity Restrictions/Add. Instructions Additional Instructions/Restrictions: You were seen for shortness of breath. Use your incentive spirometer. Return to the ER for any worsening of symptoms. Follow up with your doctor on Friday. Clinical Impressions Clinical Impression: Dyspnea Print Language Print Language: Macedonian Discharge ED Provider: Jonn Hernandez General Chief Complaint: Shortness of Breath/Dyspnea Stated Complaint: 2 Days Post OP Chest Tight SOA Time Seen by Provider: 12/17/24 13:51 Mode of Arrival: Ambulatory Source of Information: Patient and Spouse Description of Symptoms (Recalled from ER Triage Doc. by RN): Patient presents to ed for shortness of breath with chest tightness beginning at 1100 this am. Pt is 48 hours post-op from double mastectomy. Related Data Home Medications ?Medication ?Instructions ?Recorded ?Confirmed clonazepam 0.5 mg tablet 0.5 mg PO BID 03/30/24 03/30/24 montelukast 10 mg tablet 10 mg PO DAILY 03/30/24 03/30/24 omeprazole 40 mg capsule,delayed 40 mg PO DAILY 03/30/24 03/30/24 release sertraline 50 mg tablet 50 mg PO DAILY 03/30/24 03/30/24 Previous Rx's ?Medication ?Instructions ?Recorded nitrofurantoin 100 mg PO BID 5 days #10 caps 03/30/24 monohydrate/macrocrystals 100 mg capsule Allergies Allergy/AdvReac Type Severity Reaction Status Date / Time ceftriaxone Allergy Verified 09/17/20 15:27 [facility] Disclaimer: The information contained in this section may have been updated after the patient was seen, as this information can be updated by other users. Medical History (Updated 12/17/24 @ 16:31 by JUANCHO Coronado) Migraine Asthma Depression Anxiety Kidney stone Urinary tract infection History of gastroesophageal reflux (GERD) Social History Smoking Status: Smoker, status unknown alcohol intake: never current occupational status: employed Travel in the last 8 weeks?: None housing: house Have you lived/traveled outside US in past 30 days?: No Contact w/someone who lives/traveled outside US past 30 days?: No Exposure to someone with infectious disease in past 14 days?: No Do you have a fever (greater than 100.4 F or 38 C)?: No Have you tested positive for COVID-19?: No Exposed to someone with COVID-19 in past 14 days?: No Do you have a sore throat?: No Do you have a cough?: No Do you have any weakness?: No Do you have any diarrhea?: No Are you experiencing any unusual bleeding?: No Do you have any muscle aches/pain?: No Do you have any abdominal pain?: No Are you experiencing loss of taste or smell?: No Medical Decision Making Medical Records Medical records reviewed: Yes I reviewed the patient's medical records. Bob Inquiry Pt receiving controlled substance: No Bob was queried for this patient: No Vital Signs Vital Signs: 12/17/24 13:59 12/17/24 15:15 Temperature 98.4 F Temperature Source Oral Pulse Rate 82 Pulse Rate [Right Radial] 83 Respiratory Rate 16 Blood Pressure 117/73 Blood Pressure [Right Arm] 137/84 Blood Pressure Mean [Right Arm] 101 Blood Pressure Source [Right Arm] Automatic Cuff Blood Pressure Position [Right Arm] Sitting 02 Sat by Pulse Oximetry 99 99 Oxygen Delivery Method Room Air Room Air Lab Data Labs: Lab Results 12/17/24 14:02: WBC 8.0, RBC 3.97 L, Hgb 10.7 L, Hct 34.4 L, MCV 86.6, MCH 27.0, MCHC 31.1 L, RDW 14.6, Plt Count 337, MPV 9.8, Neut % (Auto) 61.2, Lymph % (Auto) 32.5, [place] % (Auto) 5.4, Eos % (Auto) 0.4, Baso % (Auto) 0.5, Neut # (Auto) 4.9, Lymph # (Auto) 2.6, [place] # (Auto) 0.4, Eos # (Auto) 0.0, Baso # (Auto) 0.0, Sodium 141, Potassium 3.3 L, Chloride 103, Carbon Dioxide 26, Anion Gap 15.3 H, BUN 7, Creatinine 0.80, Estimated Creat Clear 135, Estimated GFR 82, Est GFR ( Amer) 99, Glucose 102 H, Calcium 8.8, Total Bilirubin 0.4, AST 29, ALT 16, Alkaline Phosphatase 58, Troponin I < 0.01, Total Protein 7.1, Albumin 4.1, Globulin 3.0, Albumin/Globulin Ratio 1.4, Serum HCG, Qual Negative 12/17/24 14:02 12/17/24 14:02 Response Orders (Tests/Meds): ED MEDICATIONS Generic Name Dose Route Start Last Admin Trade Name Freq PRN Reason Stop Dose Admin Sodium Chloride 10 ml 12/17/24 14:01 Sodium Chloride 0.9% 10ml Flush Syringe IV 01/16/25 14:00 NEEDED PRN Maintain IV Site Discontinued Medications Generic Name Dose Route Start Last Admin Trade Name Freq PRN Reason Stop Dose Admin Iopamidol 70 ml 12/17/24 14:56 12/17/24 14:58 Iopamidol-370 (76%);100ml Bottle IV 12/17/24 14:57 70 ml ONCE ONE Administration Ondansetron HCl 4 mg 12/17/24 14:47 12/17/24 14:50 Ondansetron 4mg/2ml Vial IV 12/17/24 14:48 4 mg ONCE ONE Administration Sodium Chloride 50 ml 12/17/24 14:56 12/17/24 14:58 0.9 % Sodium Chloride 50 Ml Vial IV 12/17/24 14:57 50 ml ONCE ONE Administration Sodium Chloride 10 ml 12/17/24 14:56 12/17/24 14:58 Sodium Chloride 0.9% 10ml Syr (Rad Only) IV 12/17/24 14:57 10 ml ONCE ONE Administration ORDERS Category Date Time Status CT angio chest PE protocol Stat Cat Scan 12/17/24 14:01 Completed Complete Blood Count Auto Diff Stat Lab 12/17/24 14:02 Completed Comprehensive Metabolic Panel Stat Lab 12/17/24 14:02 Completed HCG Qualitative, Serum Stat Lab 12/17/24 14:02 Completed Troponin I Q3H Lab 12/17/24 17:15 Ordered Troponin I Q3H Lab 12/17/24 20:15 Ordered Troponin I Stat Lab 12/17/24 14:02 Completed ECG Data Tracing #1: Attestation: I reviewed this ECG and interpreted as documented below: ECG Narrative: He EKG personally interpreted by me demonstrates normal sinus rhythm with a rate of 86 bpm, normal axis, no ND prolongation, narrow QRS, no QTc prolongation. No ST elevation or depression. No overt signs of ischemia or arrhythmia.
[2024-12-17 17:05] VITALS: BP 120/78; PULSE 71; RESP 20; TEMP 36.8; O2SAT 99
--- NOTE | 2024-12-17 17:48 | [facility].EDGENADL ---
Discharge Plan Disposition Patient Disposition: Home, Self-Care Condition: Good Prescriptions Prescriptions: No Action clonazepam 0.5 mg tablet 0.5 mg PO BID Patient Comments: TAKE ONE TABLET BY MOUTH TWICE DAILY omeprazole 40 mg capsule,delayed release(DR/EC) 40 mg PO DAILY montelukast 10 mg tablet 10 mg PO DAILY sertraline 50 mg tablet 50 mg PO DAILY nitrofurantoin monohyd/m-cryst 100 mg capsule 100 mg PO BID 5 Days Qty: 10 0RF Rx Instructions: must administer with a meal/food Referrals Follow up/Referrals: Provider,Referral, MD [Primary Care Provider, Medical] - See instructions Activity Restrictions/Add. Instructions Additional Instructions/Restrictions: You were seen for shortness of breath. Use your incentive spirometer. Return to the ER for any worsening of symptoms. Follow up with your doctor on Friday. Clinical Impressions Clinical Impression: Dyspnea Print Language Print Language: Serbian Discharge ED Provider: Jonn Hernandez Adult HPI <JUANCHO Coronado - Last Filed: 12/17/24 17:54> General Chief complaint: Shortness of Breath/Dyspnea Stated complaint: 2 Days Post OP Chest Tight SOA Time Seen by Provider: 12/17/24 13:51 Mode of Arrival: Ambulatory Source of Information: Patient and Spouse Description of Symptoms (Recalled from ER Triage Doc. by RN): Patient presents to ed for shortness of breath with chest tightness beginning at 1100 this am. Pt is 48 hours post-op from double mastectomy. History of Present Illness HPI narrative: Patient presents complaining of chest tightness and shortness of breath. She had a double mastectomy on Friday and has had the symptoms since that time. Today she woke up and felt that the symptoms were worsened. She called her surgeon who advised that she go to the emergency department. She does have a history of asthma, however does not note any wheezing and has not used her albuterol inhaler. Denies any hormonal use, hemoptysis, edema in her lower extremities. Onset (ago): day(s) Location: chest Radiation: non-radiation Severity: moderate Consistency: constant Relieving factors: none Exacerbating factors: none Associated symptoms: chest pain (tightness); negative fever/chills Related Data Home Medications ?Medication ?Instructions ?Recorded ?Confirmed clonazepam 0.5 mg tablet 0.5 mg PO BID 03/30/24 03/30/24 montelukast 10 mg tablet 10 mg PO DAILY 03/30/24 03/30/24 omeprazole 40 mg capsule,delayed 40 mg PO DAILY 03/30/24 03/30/24 release sertraline 50 mg tablet 50 mg PO DAILY 03/30/24 03/30/24 Previous Rx's ?Medication ?Instructions ?Recorded nitrofurantoin 100 mg PO BID 5 days #10 caps 03/30/24 monohydrate/macrocrystals 100 mg capsule Allergies Allergy/AdvReac Type Severity Reaction Status Date / Time ceftriaxone Allergy Verified 09/17/20 15:27 [facility], [facility] <JUANCHO Coronado - Last Filed: 12/17/24 17:54> [facility], [facility] Disclaimer: The information contained in this section may have been updated after the patient was seen, as this information can be updated by other users. Medical History (Updated 12/17/24 @ 16:31 by JUANCHO Coronado) Migraine Asthma Depression Anxiety Kidney stone Urinary tract infection History of gastroesophageal reflux (GERD) Social History Smoking Status: Smoker, status unknown alcohol intake: never current occupational status: employed Travel in the last 8 weeks?: None housing: house Have you lived/traveled outside [place] in past 30 days?: No Contact w/someone who lives/traveled outside US past 30 days?: No Exposure to someone with infectious disease in past 14 days?: No Do you have a fever (greater than 100.4 F or 38 C)?: No Have you tested positive for COVID-19?: No Exposed to someone with COVID-19 in past 14 days?: No Do you have a sore throat?: No Do you have a cough?: No Do you have any weakness?: No Do you have any diarrhea?: No Are you experiencing any unusual bleeding?: No Do you have any muscle aches/pain?: No Do you have any abdominal pain?: No Are you experiencing loss of taste or smell?: No <JUANCHO Coronado - Last Filed: 12/17/24 17:54> ROS Obtained: Yes Systems reviewed as appropriate & no additional complaints except as documented Physical Exam <JUANCHO Coronado - Last Filed: 12/17/24 17:54> General General appearance: alert and in no apparent distress Head Head exam: atraumatic and normocephalic Eye Eye exam: Present normal appearance and EOMI Chest Chest inspection: Present symmetric chest wall rise Respiratory Respiratory exam: Present normal lung sounds bilaterally; Absent wheezes or stridor Cardiovascular Cardiovascular exam: Present regular rate and normal rhythm; Absent systolic murmur Extremities Exam Extremities exam: Present normal inspection; Absent tenderness or edema Neurological Exam Neurological exam: Present alert and oriented X3 Psychiatric Psychiatric exam: Present normal affect and normal mood Skin Skin exam: Present warm, dry and intact Medical Decision Making <JUANCHO Coronado - Last Filed: 12/17/24 17:54> Medical Records Screening: Per USPSTF and CDC recommendations, given the prevalence of disease in our region, it is our hospital?s policy to screen for HIV and viral Hepatitis for all patients aged 18 and over and those with ongoing risk factors. Bob Inquiry Pt receiving controlled substance: No Vital Signs: 12/17/24 13:59 12/17/24 15:15 12/17/24 15:30 Temperature 98.4 F Temperature Source Oral Pulse Rate 82 69 Pulse Rate [Right Radial] 83 Respiratory Rate 16 Blood Pressure 117/73 117/73 Blood Pressure [Right Arm] 137/84 Blood Pressure Mean [Right Arm] 101 Blood Pressure Source [Right Arm] Automatic Cuff Blood Pressure Position [Right Arm] Sitting 02 Sat by Pulse Oximetry 99 99 100 Oxygen Delivery Method Room Air Room Air Room Air 12/17/24 16:00 12/17/24 16:30 12/17/24 17:05 Temperature 98.2 F Temperature Source Pulse Rate 77 82 71 Pulse Rate [Right Radial] Respiratory Rate 20 Blood Pressure 120/78 Blood Pressure [Right Arm] Blood Pressure Mean [Right Arm] Blood Pressure Source [Right Arm] Blood Pressure Position [Right Arm] 02 Sat by Pulse Oximetry 99 100 Oxygen Delivery Method Room Air Room Air Room Air Lab Data Lab Results 12/17/24 14:02: WBC 8.0, RBC 3.97 L, Hgb 10.7 L, Hct 34.4 L, MCV 86.6, MCH 27.0, MCHC 31.1 L, RDW 14.6, Plt Count 337, MPV 9.8, Neut % (Auto) 61.2, Lymph % (Auto) 32.5, Franklin % (Auto) 5.4, Eos % (Auto) 0.4, Baso % (Auto) 0.5, Neut # (Auto) 4.9, Lymph # (Auto) 2.6, Franklin # (Auto) 0.4, Eos # (Auto) 0.0, Baso # (Auto) 0.0, Sodium 141, Potassium 3.3 L, Chloride 103, Carbon Dioxide 26, Anion Gap 15.3 H, BUN 7, Creatinine 0.80, Estimated Creat Clear 135, Estimated GFR 82, Est GFR ( Amer) 99, Glucose 102 H, Calcium 8.8, Total Bilirubin 0.4, AST 29, ALT 16, Alkaline Phosphatase 58, Troponin I < 0.01, Total Protein 7.1, Albumin 4.1, Globulin 3.0, Albumin/Globulin Ratio 1.4, Serum HCG, Qual Negative 12/17/24 14:02 12/17/24 14:02 Orders (Tests/Meds): ED MEDICATIONS Discontinued Medications Generic Name Dose Route Start Last Admin Trade Name Freq PRN Reason Stop Dose Admin Iopamidol 70 ml 12/17/24 14:56 12/17/24 14:58 Iopamidol-370 (76%);100ml Bottle IV 12/17/24 14:57 70 ml ONCE ONE Administration Ondansetron HCl 4 mg 12/17/24 14:47 12/17/24 14:50 Ondansetron 4mg/2ml Vial IV 12/17/24 14:48 4 mg ONCE ONE Administration Sodium Chloride 10 ml 12/17/24 14:01 Sodium Chloride 0.9% 10ml Flush Syringe IV 01/16/25 14:00 NEEDED PRN Maintain IV Site Sodium Chloride 50 ml 12/17/24 14:56 12/17/24 14:58 0.9 % Sodium Chloride 50 Ml Vial IV 12/17/24 14:57 50 ml ONCE ONE Administration Sodium Chloride 10 ml 12/17/24 14:56 12/17/24 14:58 Sodium Chloride 0.9% 10ml Syr (Rad Only) IV 12/17/24 14:57 10 ml ONCE ONE Administration ORDERS Category Date Time Status CT angio chest PE protocol Stat Cat Scan 12/17/24 14:01 Completed Complete Blood Count Auto Diff Stat Lab 12/17/24 14:02 Completed Comprehensive Metabolic Panel Stat Lab 12/17/24 14:02 Completed HCG Qualitative, Serum Stat Lab 12/17/24 14:02 Completed Troponin I Stat Lab 12/17/24 14:02 Completed Medical Decision Narrative: In summary patient is a 34-year-old female who presents the emergency department for evaluation with shortness of breath and chest tightness. She is 2 days postop from a double mastectomy. Patient is hemodynamically stable upon arrival, afebrile. Unremarkable physical exam. Differential diagnosis includes pulmonary embolism, anemia, ACS, pneumothorax. Initial workup will be conducted with labs, EKG, troponin, CTA PE protocol. Initial workup reviewed by me reveals mild anemia, hypokalemia. CTA chest negative for PE. Upon repeat evaluation patient acceptable resolution of symptoms with use of incentive spirometer. Given this patient is appropriate for discharge at this time. Advised follow up with her surgeon next week. Return to the ER for any worsening of symptoms. <Jonn Hernandez, - Last Filed: 12/21/24 20:45> Vital Signs: 12/17/24 13:59 12/17/24 15:15 12/17/24 15:30 Temperature 98.4 F Temperature Source Oral Pulse Rate 82 69 Pulse Rate [Right Radial] 83 Respiratory Rate 16 Blood Pressure 117/73 117/73 Blood Pressure [Right Arm] 137/84 Blood Pressure Mean [Right Arm] 101 Blood Pressure Source [Right Arm] Automatic Cuff Blood Pressure Position [Right Arm] Sitting 02 Sat by Pulse Oximetry 99 99 100 Oxygen Delivery Method Room Air Room Air Room Air 12/17/24 16:00 12/17/24 16:30 12/17/24 17:05 Temperature 98.2 F Temperature Source Pulse Rate 77 82 71 Pulse Rate [Right Radial] Respiratory Rate 20 Blood Pressure 120/78 Blood Pressure [Right Arm] Blood Pressure Mean [Right Arm] Blood Pressure Source [Right Arm] Blood Pressure Position [Right Arm] 02 Sat by Pulse Oximetry 99 100 Oxygen Delivery Method Room Air Room Air Room Air Lab Data Lab Results 12/17/24 14:02: WBC 8.0, RBC 3.97 L, Hgb 10.7 L, Hct 34.4 L, MCV 86.6, MCH 27.0, MCHC 31.1 L, RDW 14.6, Plt Count 337, MPV 9.8, Neut % (Auto) 61.2, Lymph % (Auto) 32.5, Franklin % (Auto) 5.4, Eos % (Auto) 0.4, Baso % (Auto) 0.5, Neut # (Auto) 4.9, Lymph # (Auto) 2.6, Franklin # (Auto) 0.4, Eos # (Auto) 0.0, Baso # (Auto) 0.0, Sodium 141, Potassium 3.3 L, Chloride 103, Carbon Dioxide 26, Anion Gap 15.3 H, BUN 7, Creatinine 0.80, Estimated Creat Clear 135, Estimated GFR 82, Est GFR ( Amer) 99, Glucose 102 H, Calcium 8.8, Total Bilirubin 0.4, AST 29, ALT 16, Alkaline Phosphatase 58, Troponin I < 0.01, Total Protein 7.1, Albumin 4.1, Globulin 3.0, Albumin/Globulin Ratio 1.4, Serum HCG, Qual Negative Orders (Tests/Meds): ED MEDICATIONS Discontinued Medications Generic Name Dose Route Start Last Admin Trade Name Freq PRN Reason Stop Dose Admin Iopamidol 70 ml 12/17/24 14:56 12/17/24 14:58 Iopamidol-370 (76%);100ml Bottle IV 12/17/24 14:57 70 ml ONCE ONE Administration Ondansetron HCl 4 mg 12/17/24 14:47 12/17/24 14:50 Ondansetron 4mg/2ml Vial IV 12/17/24 14:48 4 mg ONCE ONE Administration Sodium Chloride 10 ml 12/17/24 14:01 Sodium Chloride 0.9% 10ml Flush Syringe IV 01/16/25 14:00 NEEDED PRN Maintain IV Site Sodium Chloride 50 ml 12/17/24 14:56 12/17/24 14:58 0.9 % Sodium Chloride 50 Ml Vial IV 12/17/24 14:57 50 ml ONCE ONE Administration Sodium Chloride 10 ml 12/17/24 14:56 12/17/24 14:58 Sodium Chloride 0.9% 10ml Syr (Rad Only) IV 12/17/24 14:57 10 ml ONCE ONE Administration ORDERS Category Date Time Status CT angio chest PE protocol Stat Cat Scan 12/17/24 14:01 Completed Complete Blood Count Auto Diff Stat Lab 12/17/24 14:02 Completed Comprehensive Metabolic Panel Stat Lab 12/17/24 14:02 Completed HCG Qualitative, Serum Stat Lab 12/17/24 14:02 Completed Troponin I Stat Lab 12/17/24 14:02 Completed ECG Data Tracing #1: I reviewed this ECG and interpreted as documented below: EKG personally interpreted by me demonstrates normal sinus rhythm with a rate of 86 bpm, normal axis, no UT prolongation, narrow QRS, no QTc prolongation. No ST elevation or depression. No overt signs of ischemia or arrhythmia. HEART Score History (anamnesis): Slightly suspicious ECG: Normal Age: <45 years Risk factors: No known risk factors Troponin: </= normal limit HEART Score: 0 Medical Decision Narrative: In summary patient is a 34-year-old female who presents the emergency department for evaluation with shortness of breath and chest tightness. She is 2 days postop from a bilateral mastectomy, which was prophylactic and not secondary to active cancer. The patient does not have any other significant reported comorbidities that would complicate her medical management or care. On initial evaluation she was in no acute distress and was nontoxic in appearance. She was hemodynamically stable, saturating well on room air, and neurologically intact. On physical examination she has no wheezes and is moving air well bilaterally. She has 2 drains present on either side of the chest from her recent surgery. No evidence of skin/surgical site infection. She has obvious, expected post-operative chest wall tenderness to palpation. Radial pulses are symmetric bilaterally. She does not have any upper or lower extremity findings of DVT, such as asymmetric erythema or edema. Differential diagnosis included pulmonary embolism, pneumonia, pleural effusion, post-operative pain, ACS/CO, among others. Initial workup included hematologic labs as well as a CT PE study. Labs personally interpreted by me demonstrate no actionable abnormalities. The patient's initial troponin is undetectably low, and her pain has persisted for >6 hours so we did not obtain a delta troponin. CT PE study was personally interpreted by me and demonstrates no saddle pulmonary embolus. Official radiology read is in agreement and notes that there is post-operative atelectasis with no other acute abnormality. Analgesics were offered to the patient, and she did decline. I feel this is reasonable given that she is not in distress. While the patient was in the emergency department we did administer an incentive spirometer and provided education for how to use this. I have encouraged her to use this multiple times per day, and to closely monitor her symptoms and return to the ER if she has any new or worsening symptoms. She does have follow up with her surgeon this upcoming week and I have strongly encouraged she keep that appointment. At this time all questions have been answered and all parties agreeable with the decision to discharge home. Attestation: I was consulted by the ROMAN, and we discussed the complexity of problems being addressed. I approved the treatment and management plan for this patient's care in the emergency department, thus performing a substantive portion of the medical decision making. Jonn Hernandez, DO Critical Care <JUANCHO Coronado - Last Filed: 12/17/24 17:54> Critical Care Time Critical Care Time: No
== END 2024-12-17 17:08 | disposition home or self-care (01) ==
PROVIDERS: Physician Assistant; Emergency Provider Student in an Organized Health Care Education/Training Program
DX: R06.02 Shortness of breath (principal)
CPT/HCPCS: 71275; 80053; 84484; 84703; 85025; 93005; 96374; 99285; J2405; Q9967